=== PATIENT | female | born 1975 | race American Indian/Alaskan Native ===

== ENCOUNTER 2020-01-25 03:05 | Inpatient (IN) | payer OTHER, SELFPAY ==
[2020-01-25] VITALS (11 sets, daily range): BP systolic 118–192; BP diastolic 69–95; PULSE 62–99; RESP 16–22; TEMP 36.1–37.3; O2SAT 91–100; BMI 31.2
--- NOTE | 2020-01-25 | ECG_ITS ---
Test Reason : NAUSEA Blood Pressure : / mmHG Vent. Rate : 072 BPM Atrial Rate : 072 BPM P-R Int : 146 ms QRS Dur : 072 ms QT Int : 468 ms P-R-T Axes : 060 051 059 degrees QTc Int : 512 ms Normal sinus rhythm RSR' or QR pattern in V1 suggests right ventricular conduction delay T-wave inversion in Anterior leads Prolonged QT Abnormal ECG No previous ECGs available Referred By: Liliana Henry Electronically Signed By:CHIRAG ARITA MD
--- NOTE | 2020-01-25 | CT_ITS ---
EXAMINATION: CT ABDOMEN AND PELVIS WITH CONTRAST CLINICAL INFORMATION: Abdominal pain COMPARISON: None TECHNIQUE: Multidetector volumetric images were obtained from the superior aspect of the liver through the pubic symphysis following administration 85 mL of Omnipaque 350 intravenous contrast. Sagittal and coronal reformatted images were obtained on the technologist's workstation. Oral contrast: No This CT examination was performed using dose optimization techniques as appropriate, variously including the following: *Automated exposure control *Adjustment of mA and/or kV according to patient size (this includes techniques or standardized protocols for targeted exams where dose is matched to indication/reason for exam; i.e. extremities or head) *Use of iterative reconstruction technique DLP: 572 mGy-cm FINDINGS: LUNG BASES: The visualized lung bases are unremarkable. LIVER, GALLBLADDER, AND BILIARY TREE: The liver is normal in size, shape, and attenuation. No focal hepatic lesion or biliary ductal dilatation is present. The gallbladder is unremarkable with no evidence of radiopaque gallstones, gallbladder wall thickening, or obvious pericholecystic inflammatory changes. PANCREAS: Unremarkable. SPLEEN: Normal size spleen. Calcifications along the splenic peripheral margin. ADRENAL GLANDS: Unremarkable. KIDNEYS AND URETERS: The kidneys are normal in size, shape, and attenuation. No hydronephrosis, hydroureter, or calculi seen. Mild symmetric perinephric stranding. BLADDER: Unremarkable. GASTROINTESTINAL TRACT: The stomach is unremarkable. Normal caliber small bowel. There is no obstruction. There is diffuse fatty infiltration of the colonic wall. The colon is decompressed. No acute inflammatory changes. No free air. No free fluid. ABDOMINAL WALL: No significant hernia is appreciated. LYMPH NODES: Normal. VASCULAR: Normal caliber aorta with minimal atherosclerotic calcification. Retroaortic left renal vein. PELVIC VISCERA: Anteverted uterus. Prominent lobulation of the uterus with heterogeneous enhancement. The appearance is suspicious for prominent fibroids, measuring up to 4.5 cm at the uterine fundus. No adnexal mass. OSSEOUS STRUCTURES: No acute or suspicious osseous abnormality. Degenerative changes of L4-L5 and L5-S1. Vacuum disc phenomenon at L4-L5 with disc space narrowing. IMPRESSION: 1. Lobulated enlarged uterus, suggestive of multiple fibroids. This could be evaluated with pelvic ultrasound if clinically indicated. 2. Diffuse fatty infiltration of the colonic wall suggestive of chronic inflammatory process. No acute inflammatory changes of the colon.
--- NOTE | 2020-01-25 03:27 | ED_ITS ---
HPI - Nausea/Vomiting/Diarrhea General Chief complaint: Nausea/Vomiting/Diarrhea Stated complaint: NAUSEA AND VOMITING SINCE ALCOHOL USE Time Seen by Provider: 01/25/20 03:26 History of Present Illness HPI Narrative: This is a 44-year-old female who is a heavy drinker and states that she has been drinking heavily for the past 4 days and states that her last drink was 2 days ago and she has not eaten much over the past 2 days because she just has not felt well. She states that she then began developing nausea and nonbloody / nonbilious vomiting 4 hours ago without associated shortness of breath, chest pain /palpitations but is having abdominal pain and denies any urinary pain /burning /frequency or diarrhea. Related Data Home Medications Medication Instructions Recorded Confirmed buprenorphine-naloxone [Suboxone] 1 film BUCCAL DAILY 01/25/20 01/25/20 omeprazole 20 mg PO DAILY 01/25/20 01/25/20 Allergies Allergy/AdvReac Type Severity Reaction Status Date / Time sumatriptan [From IMITREX] Allergy Unknown INVOLUNTARY Verified 01/25/20 04:43 SPASMS wellbutrin AdvReac Unknown stomach Uncoded 07/18/19 00:00 upset Review of Systems Review of Systems: Pertinent positives and negatives as stated in the HPI. GEN: no fevers, chills, fatigue HEENT: no nasal congestion, sore throat, ear pain NEURO: no headache, dizziness, focal weakness PULM: no cough, shortness of breath CV: no chest pain, palpitations, LE edema ABD: +abdominal pain, nausea, vomiting, no diarrhea : no dysuria, urgency, frequency SKIN: no rash ROS otherwise negative x 10 PMFSH Past Medical History Source: nursing notes reviewed Medical History Fibroid No known health problems Surgical History Hx of appendectomy Social History Social History Alcohol intake: current Alcohol intake frequency: other Alcohol type: hard l iquor Smoking Status: Current every day smoker Use of substances other than those prescribed or required for medical reasons: No Advance Directives: No Advance Directives Information Provided: No Physical Exam Vital Signs and I&O and Narrative: Vital Signs and I&O: Vital Signs Temp 98.1 F 01/25/20 03:14 Pulse 88 01/25/20 07:59 Resp 16 01/25/20 07:59 BP 170/90 H 01/25/20 07:59 Pulse Ox 98 01/25/20 05:56 Intake & Output 01/24/20 01/25/20 01/25/20 18:59 06:59 18:59 Intake Total 2099 Balance 2099 Weight 85.275 kg Intake: Intake, IV Amoun t 2099 Potassium Chlo ride/H20 10 meq 100 / 100 In 100 ml @ 10 0 mls/hr IV Q1H [facility] Rx#:[id number] 0.9 % Sodium C hloride 1,000 ml 1999 / 1999 @ 999 mls/hr I VCONT .Q1H1M [facility] Rx#:[id number] Body Mass Index 31.2 VITAL SIGNS: Reviewed. GENERAL: Well developed, well nourished, in no acute distress. HEAD: Normocephalic/atraumatic, EYES: PERRLA, EOMI intact without pain, no nystagmus/pallor/icterus noted EARS: Ext canals without abnormality, TMs non-bulging and non-erythematous NOSE: Nares patent bilateral OROPHARYNX: no oral lesions noted, posterior pharynx clear and non-erythematous without noted tonsillar enlargement/erythema/exudates NECK: Supple, no adenopathy LUNGS: Normal breath sounds. No adventitious sounds or accessory muscle use. SpO2< 98%> CARDIOVASCULAR: Regular rate and rhythm without noted murmurs, no JVD or lower extremity edema. ABDOMEN: Soft, mildly tender on palpation, non-distended with bowel sounds. No rigidity. No guarding. No palpable masses or hernias noted MUSCULOSKELETAL: No tenderness, deformities, or effusions noted on gross inspection. EXTREMITIES: No cyanosis, clubbing or edema. SKIN: Inspection of the skin reveals no rashes, ulcerations, jaundice, pallor, or petechiae. NEUROLOGIC: Alert and oriented x 4. Strength and sensation to light touch were grossly intact x 4. Course Course Course Narrative: This is a 44-year-old female with history and clinical presentation suggestive of acute pancreatitis and concerns for possible withdrawal symptoms. Review of all investigations most consistent with pancreatitis although this is not demonstrated on CT scan. There is a noted worsening anemia which taken in to account with patient's reports of 2 episodes of black tarry stools may be the cause. Patient has been treated with Ativan, IV fluids, and pain medication, as well as antiemetics for symptom control but still unable to tolerate PO fluids. fecal occult blood was negative. Reevaluation(s) Reevaluation #1: This case was discussed with the inpatient hospitalist team who is agreeable for admission but is requesting normal saline at 150 cc/ HR as well as a dose Protonix. MDM - Nausea/Vomiting/Diarrhea Lab Data Result diagrams: 01/25/20 04:14 01/25/20 04:14 Labs: Lab Results 01/25/20 01/25/20 01/25/20 Range/Units 04:14 04:14 07:17 WBC 10.0 (4.8-10.8) X10*3/uL RBC 3.62 L (4.20-5.50) X10*6/uL Hgb 8.1 L (12.0-16.0) g/dl Hct 27.5 L (37-47) % MCV 76.0 L (80-98) fL MCH 22.4 L (27.0-33.0) pg MCHC 29.5 L (31.0-35.0) g/dl RDW 19.2 H (11.0-16.0) % Plt Count 167 (160-400) X10*3/uL MPV 9.3 L (9.4-12.3) fL Immature Gran % (Auto) 0.4 (0.0-0.4) % Neut % (Auto) 86.9 H (45-73) % Lymph % (Auto) 8.1 L (20-40) % [place] % (Auto) 4.4 (2-11) % Eos % (Auto) 0.0 (0-4) % Baso % (Auto) 0.2 (0-2) % Lymph # (Auto) 0.8 L (1.2-4.9) X10*3/uL [place] # (Auto) 0.4 (0.1-1.2) X10*3/uL Eos # (Auto) 0.0 (0.0-0.4) X10*3/uL Baso # (Auto) 0.0 (0.0-0.2) X10*3/uL Abs Immat Gran (auto) 0.04 H (0.00-0.03) X10*3/uL Absolute Neuts (auto) 8.7 H (2.0-8.3) X10*3/uL Absolute Nucleated RBC 0.020 H (0.0-0.012) X10*3/uL Nucleated RBC % (auto) 0.2 (0.0-0.2) /100WBC Sodium 138 (135-145) mmol/L Potassium 3.0 L (3.3-5.1) mmol/l Chloride 103 (96-108) mmol/L Carbon Dioxide 23 (22-29) mmol/L Anion Gap 15 (12-20) BUN 6 L (9-16) mg/dL Creatinine 0.69 (0.5-1.4) mg/dL Estim Creat Clear Calc 111.0 Estimated GFR > 60 Random Glucose 172 H (60-115) mg/dL Calcium 8.4 (8.4-10.2) mg/dL Magnesium 1.3 L* (1.6-2.6) mg/dL Total Bilirubin 0.5 (0.0-1.0) mg/dL AST 20 (5-31) U/L ALT 13 (0-31) U/L Alkaline Phosphatase 108 (39-117) U/L Total Protein 7.2 (6.5-8.0) g/dL Albumin 4.0 (3.5-5.0) g/dL Lipase 113 H (8-78) U/L Stool Occult Blood NEG (NEG) ECG Data Attestation: I personally reviewed and interpreted this ECG as follows: Interpretation: NSR, HR-72, QTc prolongation-512 Discharge Plan Discharge Clinical Impression: Hypokalemia, Hypomagnesemia Acute pancreatitis Qualifiers: Pancreatitis type: alcohol induced Acute pancreatitis complication: uninfected necrosis Qualified Code(s): K85.21 - Alcohol induced acute pancreatitis with un infected necrosis Anemia Qualifiers: Anemia type: unspecified type Qualified Code(s): D64.9 - Anemia, unspecified Patient Disposition: Admitted As Inpatient
[2020-01-25] MEDS: diphenhydrAMINE HCL 50 MG/ML VIAL 25 MG IVPUSH (03:53)
[2020-01-25] MEDS: 0.9 % Sodium Chloride 1,000 ML 999 ML IVCONT ×2 (03:54→05:29)
[2020-01-25] MEDS: Metoclopramide HCl 10 MG/2 ML VIAL IVPUSH (03:54)
[2020-01-25 04:19] LABS: Basophils Percent Auto 0.2 % (0-2); Hematocrit 27.5 % (37-47); Hemoglobin 8.1 g/dl (12.0-16.0); Imm Gran Abs Auto 0.04 X10*3/uL (0.00-0.03); Imm Gran Pct Auto 0.4 % (0.0-0.4); Lymphocytes Absolute Auto 0.8 X10*3/uL (1.2-4.9); Lymphocytes Percent Auto 8.1 % (20-40); MANUAL DIFF FLAG NO; Mean Corpuscular HGB Conc 29.5 g/dl (31.0-35.0); Mean Corpuscular Hemoglobin 22.4 pg (27.0-33.0); Mean Platelet Volume 9.3 fL (9.4-12.3); Monocytes Absolute Auto 0.4 X10*3/uL (0.1-1.2); Monocytes Percent Auto 4.4 % (2-11); NRBC Pct Auto 0.2 /100WBC (0.0-0.2); Neutrophils Absolute Auto 8.7 X10*3/uL (2.0-8.3); Neutrophils Percent Auto 86.9 % (45-73); Platelet Count 167 X10*3/uL (160-400); Red Blood Count 3.62 X10*6/uL (4.20-5.50); Red Cell Distribution Width 19.2 % (11.0-16.0)
[2020-01-25 04:46] LABS: Alanine Aminotransferase 13 U/L (0-31); Alkaline Phosphatase 108 U/L (39-117); Anion Gap 15 (12-20); Aspartate Amino Transferase 20 U/L (5-31); Bilirubin Total 0.5 mg/dL (0.0-1.0); Blood Urea Nitrogen 6 mg/dL (9-16); Calcium 8.4 mg/dL (8.4-10.2); Carbon Dioxide 23 mmol/L (22-29); Chloride 103 mmol/L (96-108); Estimated Glomerular Filt Rate > 60; Glucose Random 172 mg/dL (60-115); Sodium 138 mmol/L (135-145); Total Protein 7.2 g/dL (6.5-8.0)
[2020-01-25 05:02] LABS: Lipase 113 U/L (8-78)
[2020-01-25] MEDS: HYDROmorphone HCl 0.5 MG/0.5 ML SYRINGE IVPUSH (05:28)
[2020-01-25] MEDS: Prochlorperazine Edisylate 10 MG/2 ML VIAL 5 MG IV (05:28)
[2020-01-25 05:59] LABS: Magnesium 1.3 mg/dL (1.6-2.6)
[2020-01-25] MEDS: Magnesium Sulfate/H2O 2 GM/50 ML PIGGYBACK IV (06:26)
[2020-01-25] MEDS: LORazepam 2 MG/ML VIAL 1 MG IVPUSH (06:26)
[2020-01-25] MEDS: iohexoL 350 MG/ML 100 ML INFUS..BTL 85 ML IV (06:44)
[2020-01-25] MEDS: Potassium Chloride/H20 10 MEQ/100 ML PIGGYBACK 100 MEQ IV ×4 (07:00→11:11)
[2020-01-25 07:42] LABS: OBS Int Ctl Valid YES; OBS1 NEG (NEG)
[2020-01-25] MEDS: Pantoprazole Sodium 40 MG/10 ML VIAL 80 MG IVPUSH (08:36)
[2020-01-25] MEDS: 0.9 % Sodium Chloride 500 ML 150 ML IV (08:36)
[2020-01-25 09:11] LABS: Glucose Urine UA NEG (NEG); Leukocyte Esterase Urine NEG (NEG); Nitrite Urine NEG (NEG); Urine Blood NEG (NEG); Urine Ketones 15 MG/DL (NEG); Urine Protein NEG (NEG-TRACE)
[2020-01-25 09:13] LABS: Appearance Urine CLEAR; Color Urine YELLOW; UACC Culture Trigger NO
[2020-01-25 09:14] LABS: UPreg QC Valid YES; Urine Pregnancy NEGATIVE (NEGATIVE)
--- NOTE | 2020-01-25 10:25 | PM.IMHP ---
History of Present Illness Date of Service: 01/25/20 <WOODROW Whitney - Last Filed: 01/25/20 10:56> Chief Complaint: n/v <WOODROW Whitney - Last Filed: 01/25/20 10:56> This is a 44-year-old female with a history of alcohol abuse who presents to the emergency department with nausea and nonbloody emesis. She reports onset of symptoms at 10:30 last night. She has had associated upper abdominal pain. She also reports 2 episodes of loose stool. she usually drinks alcohol daily however for the past several days she was drinking more than usual. She reports drinking 4-5 mixed drinks daily. workup in the emergency department revealed hypokalemia with a potassium of 3.0, low magnesium at 1.3. EKG revealed prolonged QTC of 512 milliseconds. H/H somewhat decreased from her baseline at 8.1/27.5. Stool guaiac was negative. lipase was mildly elevated at 113 however cat scan of the abdomen showed normal appearance of the pancreas. She received antiemetics, magnesium and potassium replacement. She continued to have nausea and vomiting And the decision was made to admit her for further management. <WOODROW Whitney - Last Filed: 01/25/20 10:56> Review of Systems Review of Systems: Yes all other systems are reviewed and are negative <WOODROW Whitney - Last Filed: 01/25/20 10:56> Constitutional: Constitutional: Denies chills and Denies fever(s) <WOODROW Whitney - Last Filed: 01/25/20 10:56> Cardiovascular: Cardiovascular: Denies chest pain <WOODROW Whitney - Last Filed: 01/25/20 10:56> Respiratory: Respiratory: Denies cough <WOODROW Whitney Last Filed: 01/25/20 10:56> Gastrointestinal: Gastrointestinal: Reports abdominal pain, Reports loose stools, Reports nausea and Reports vomiting <WOODROW Whitney Last Filed: 01/25/20 10:56> [facility] Medical History: Medical History (Updated 02/12/20 @ 10:59 by Betty Page MD) Alcohol abuse Fibroid Opiate dependence Uterine benign neoplasm <WOODROW Whitney - Last Filed: 01/25/20 10:56> Family History: Family History (Updated 01/25/20 @ 10:42 by WOODROW Whitney) Mother Multiple sclerosis <WOODROW Whitney - Last Filed: 01/25/20 10:56> Surgical History: Surgical History (Updated 01/25/20 @ 10:41 by WOODROW Whitney) H/O myomectomy Hx of appendectomy <WOODROW Whitney - Last Filed: 01/25/20 10:56> Social History: Social History (Updated 01/25/20 @ 10:44 by WOODROW Whitney) Household Members: Spouse Housing: Apartment Alcohol intake: current Alcohol intake frequency: other Alcohol type: hard liquor Smoking Status: Current every day smoker Tobacco Type: Cigarette Packs Per Day: 2 Cigarettes Per Day: 40.0 Second Hand Smoke Exposure: Yes Substance Use Type: Opiates service: No Current occupational status: employed <WOODROW Whitney - Last Filed: 01/25/20 10:56> Meds Allergies/Adverse reactions: Allergies Allergy/AdvReac Type Severity Reaction Status Date / Time sumatriptan [From IMITREX] Allergy Unknown INVOLUNTARY Verified 01/25/20 04:43 SPASMS wellbutrin AdvReac Unknown stomach Uncoded 07/18/19 00:00 upset <WOODROW Whitney - Last Filed: 01/25/20 10:56> Home medications: Home Medications Medication Instructions Recorded Confirmed Type buprenorphine-naloxone [Suboxone] 1 film BUCCAL DAILY 01/25/20 01/25/20 History omeprazole 20 mg PO DAILY 01/25/20 01/25/20 History <WOODROW Whitney - Last Filed: 01/25/20 10:56> Physical Exam Vital Signs and Narrative: Vital Signs: Last Vital Signs Temp 98.1 F 01/25/20 03:14 Pulse 86 01/25/20 09:53 Resp 22 H 01/25/20 09:53 BP 179/95 H 01/25/20 09:53 Pulse Ox 97 01/25/20 09:53 Body Mass Index 31.2 <WOODROW Whitney - Last Filed: 01/25/20 10:56> Const: Nutritional Appearance: well nourished <WOODROW Whitney - Last Filed: 01/25/20 10:56> Orientation/consciousness: patient oriented x3 <WOODROW Whitney - Last Filed: 01/25/20 10:56> HENMT: Head: Yes normocephalic and Yes atraumatic <WOODROW Whitney - Last Filed: 01/25/20 10:56> Eyes: Sclerae: sclerae normal <WOODROW Whitney - Last Filed: 01/25/20 10:56> Chest: Chest palpation & inspection: normal inspection of the chest <WOODROW Whitney - Last Filed: 01/25/20 10:56> Resp: Effort & Inspection: normal respiratory effort and no respiratory distress <WOODROW Whitney - Last Filed: 01/25/20 10:56> Auscultation: clear to auscultation bilaterally <WOODROW Whitney - Last Filed: 01/25/20 10:56> Cardio: Rate: regular rate <WOODROW Whitney - Last Filed: 01/25/20 10:56> Rhythm: regular rhythm <WOODROW Whitney - Last Filed: 01/25/20 10:56> GI: Palpation (GI): Soft to palpation and Tenderness to palpation present (GI) in the epigastrum <WOODROW Whitney - Last Filed: 01/25/20 10:56> Skin: General skin exam: no rashes or lesions noted <WOODROW Whitney - Last Filed: 01/25/20 10:56> Neuro: General: patient oriented x3 <WOODROW Whitney - Last Filed: 01/25/20 10:56> Cranial nerves: Yes CN's II-XII intact bilaterally and Yes Bilaterally intact EOM present <WOODROW Whitney - Last Filed: 01/25/20 10:56> Extrem: General: Yes normal to inspection <WOODROW Whitney - Last Filed: 01/25/20 10:56> Results Labs Labs: Laboratory Tests 01/25/20 01/25/20 01/25/20 04:14 04:14 07:17 WBC 10.0 RBC 3.62 L Hgb 8.1 L Hct 27.5 L MCV 76.0 L MCH 22.4 L MCHC 29.5 L RDW 19.2 H Plt Count 167 MPV 9.3 L Immature Gran % (Auto) 0.4 Neut % (Auto) 86.9 H Lymph % (Auto) 8.1 L [place] % (Auto) 4.4 Eos % (Auto) 0.0 Baso % (Auto) 0.2 Lymph # (Auto) 0.8 L [place] # (Auto) 0.4 Eos # (Auto) 0.0 Baso # (Auto) 0.0 Abs Immat Gran (auto) 0.04 H Absolute Neuts (auto) 8.7 H Absolute Nucleated RBC 0.020 H Nucleated RBC % (auto) 0.2 Sodium 138 Potassium 3.0 L Chloride 103 Carbon Dioxide 23 Anion Gap 15 BUN 6 L Creatinine 0.69 Estim Creat Clear Calc 111.0 Estimated GFR > 60 Random Glucose 172 H Calcium 8.4 Magnesium 1.3 L* Total Bilirubin 0.5 AST 20 ALT 13 Alkaline Phosphatase 108 Total Protein 7.2 Albumin 4.0 Lipase 113 H Urine Color Urine Appearance Urine pH Ur Specific [place] Urine Protein Urine Glucose (UA) Urine Ketones Urine Blood Urine Nitrite Ur Leukocyte Esterase Urine Test Stool Occult Blood NEG 01/25/20 08:55 WBC RBC Hgb Hct MCV MCH MCHC RDW Plt Count MPV Immature Gran % (Auto) Neut % (Auto) Lymph % (Auto) [place] % (Auto) Eos % (Auto) Baso % (Auto) Lymph # (Auto) [place] # (Auto) Eos # (Auto) Baso # (Auto) Abs Immat Gran (auto) Absolute Neuts (auto) Absolute Nucleated RBC Nucleated RBC % (auto) Sodium Potassium Chloride Carbon Dioxide Anion Gap BUN Creatinine Estim Creat Clear Calc Estimated GFR Random Glucose Calcium Magnesium Total Bilirubin AST ALT Alkaline Phosphatase Total Protein Albumin Lipase Urine Color YELLOW Urine Appearance CLEAR Urine pH 6.0 Ur Specific [place] 1.010 Urine Protein NEG Urine Glucose (UA) NEG Urine Ketones 15 Urine Blood NEG Urine Nitrite NEG Ur Leukocyte Esterase NEG Urine Test NEGATIVE Stool Occult Blood <WOODROW Whitney - Last Filed: 01/25/20 10:56> Assessment and Plan (1) Intractable nausea and vomiting: Status: Acute <WOODROW Whitney - Last Filed: 01/25/20 10:56> this is a 44-year-old female with a history of alcohol abuse who presents to the emergency department with nausea and vomiting found to have multiple electrolyte abnormalities admitted for gastritis and alcohol withdrawal. alcohol withdrawal - start phenobarbital - tele monitoring, seizure precautions - supplementation with thiamine, folate - care team evaluation when medically stable N/V/ abdominal pain seems to be improving. no vomiting for several hours per patient likely secondary to alcoholic gastritis. less likely pancreatitis given normal appearing pancreas on CT - IV Pepcid - IVF - cautious use of antiemetics given prolonged QT electrolyte abnormalities K 3.0, magnesium 1.3 - repeat labs now - tele monitoring - replace as needed prolonged QTc related to electrolyte abnormalities - tele monitoring - repeat EKG in a.m. microcytic anemia chronic. somewhat below baseline guaiac negative - check iron studies - trend CBC tobacco dependence smoking cessation advised -NRT DVT prophylaxis- mechanical devices code status- full code this case was discussed with Dr. Alejo <WOODROW Whitney - Last Filed: 01/25/20 10:56>
[2020-01-25] MEDS: PHENobarbitaL sodium 130 MG/ML VIAL 182 MG IM (10:28)
[2020-01-25] MEDS: 0.9 % Sodium Chloride 1,000 ML 100 ML IVCONT ×2 (12:33→21:24)
[2020-01-25] MEDS: Thiamine HCL 100 MG TABLET PO (12:34)
[2020-01-25] MEDS: Famotidine/PF 20 MG/2 ML VIAL IVPUSH (12:34)
[2020-01-25] MEDS: Nicotine 21 MG PATCH.TD24 TRANSDERMA (12:36)
[2020-01-25 12:58] LABS: Anion Gap 14 (12-20); Blood Urea Nitrogen 3 mg/dL (9-16); Calcium 7.9 mg/dL (8.4-10.2); Carbon Dioxide 21 mmol/L (22-29); Chloride 104 mmol/L (96-108); Creatinine Clr Calc Pharmacy 125.5; Estimated Glomerular Filt Rate > 60; Glucose Random 136 mg/dL (60-115); Iron 20 mcg/dL (30-160); Magnesium 1.7 mg/dL (1.6-2.6); Percent Iron Saturation 4 % (15-50); Potassium 3.9 mmol/l (3.3-5.1); Sodium 135 mmol/L (135-145); Total Iron Binding Capacity 468 mcg/dL (228-428); Unsaturated Iron Binding 448 ug/dL
[2020-01-25] MEDS: PHENobarbitaL sodium 130 MG/ML VIAL 137 MG IM ×2 (13:01→17:02)
[2020-01-25 13:13] LABS: Ferritin 23 ng/mL (10-250)
--- NOTE | 2020-01-25 15:43 | PM.EVENT ---
Event Note Event Note: patient was admitted because of nausea and nonbloody vomiting. She also has upper abdominal pain. As well as reported 2 BMs loose stools. She reports she is drinking alcohol nonstop from last couple of days and not eating well along with it. In the ED found to have electrolytic abnormalities including hypomagnesemia and hypokalemia also found to have Qt prolongation. has probably mild hypochromic anemia also. physical exam: Cvs: rrr, [id number] , no murmur res: clear to auscultation ,no rhonchii or wheezing abd: no rebound or guarding ,mild epigastric discomfort, bs present. ext pulses present , no cyanosis neuro: axo3 , nonfocal. Lab imaging, EKG reviewed. Physical exam and assessment and plan coordinated in APCs note, Agree with the plan in addition: Patient being admitted for alcohol withdrawal, alcoholic gastritis, electrolytic abnormalities as above. Monitor patient on tele replete magnesium an d potassium phenobarb protocol, thiamine folic acid. , monitor CIWA scale IV fluid ppi repeat h/h CTs abdomen shows has fibroids- recommended outpatient follow-up with ultrasound. Also has some chronic colonic inflammation otherwise unremarkable. will continue to monitor.
[2020-01-25 16:31] LABS: Hematocrit 27.8 % (37-47)
[2020-01-25] MEDS: Pantoprazole Sodium 40 MG/10 ML VIAL IVPUSH (17:02)
[2020-01-25] MEDS: Folic Acid 1 MG TABLET PO (17:02)
[2020-01-25] MEDS: Morphine Sulfate 2 MG/ML CARTRIDGE 1 MG IVPUSH (21:23)
[2020-01-26] MEDS: diphenhydrAMINE HCL 50 MG/ML VIAL 25 MG IVPUSH ×2 (01:20→20:41)
[2020-01-26 03:27] VITALS: BP 179/84; PULSE 76; RESP 19; TEMP 36.8; O2SAT 97
[2020-01-26] MEDS: Pantoprazole Sodium 40 MG/10 ML VIAL IVPUSH (05:40)
[2020-01-26] MEDS: Morphine Sulfate 2 MG/ML CARTRIDGE 1 MG IVPUSH (05:40)
[2020-01-26 06:53] VITALS: BP 189/79; PULSE 74; RESP 20; TEMP 36.6; O2SAT 98
[2020-01-26 07:15] LABS: MANUAL DIFF FLAG NO
[2020-01-26 07:28] LABS: Basophils Percent Auto 0.1 % (0-2); Eosinophils Percent Auto 0.1 % (0-4); Hematocrit 27.7 % (37-47); Hemoglobin 8.1 g/dl (12.0-16.0); Imm Gran Abs Auto 0.06 X10*3/uL (0.00-0.03); Imm Gran Pct Auto 0.5 % (0.0-0.4); Lymphocytes Absolute Auto 1.2 X10*3/uL (1.2-4.9); Lymphocytes Percent Auto 10.5 % (20-40); Mean Corpuscular HGB Conc 29.2 g/dl (31.0-35.0); Mean Corpuscular Hemoglobin 22.5 pg (27.0-33.0); Mean Corpuscular Volume 76.9 fL (80-98); Mean Platelet Volume 10.6 fL (9.4-12.3); Monocytes Absolute Auto 0.6 X10*3/uL (0.1-1.2); Monocytes Percent Auto 5.4 % (2-11); NRBC Pct Auto 0.3 /100WBC (0.0-0.2); Neutrophils Absolute Auto 9.2 X10*3/uL (2.0-8.3); Neutrophils Percent Auto 83.4 % (45-73); Platelet Count 191 X10*3/uL (160-400); Red Cell Distribution Width 20.6 % (11.0-16.0); White Blood Count 11.1 X10*3/uL (4.8-10.8)
[2020-01-26] MEDS: Folic Acid 1 MG TABLET PO (07:51)
[2020-01-26] MEDS: Ferrous Sulfate 324 MG TABLET.DR PO ×2 (07:51→17:25)
[2020-01-26] MEDS: Buprenorphine/Naloxone 8/2 mg FILM 1 FILM BUCCAL ×2 (07:52→20:40)
[2020-01-26] MEDS: PHENobarbitaL 15 MG TABLET 45 MG PO ×2 (07:52→20:40)
[2020-01-26 07:55] LABS: Magnesium 1.6 mg/dL (1.6-2.6)
[2020-01-26] MEDS: 0.9 % Sodium Chloride 1,000 ML 100 ML IVCONT (07:59)
[2020-01-26 08:04] LABS: Anion Gap 14 (12-20); Calcium 7.6 mg/dL (8.4-10.2); Carbon Dioxide 20 mmol/L (22-29); Chloride 105 mmol/L (96-108); Creatinine Clr Calc Pharmacy 123.5; Estimated Glomerular Filt Rate > 60; Glucose Random 106 mg/dL (60-115); Potassium 3.2 mmol/l (3.3-5.1); Sodium 136 mmol/L (135-145)
[2020-01-26 08:22] LABS: Blood Urea Nitrogen 3 mg/dL (9-16)
--- NOTE | 2020-01-26 09:48 | MHC.CM.PN ---
NEUROLOGIST completed with pt who reports she lives at home with her partner and is independent with all care. Pt reports she does not use DME and has no in home services. Pt confirms her PCP is Betty Page and states she does have a HCP naming her mother, Dasha ([phone]) as her agent. Pt currently has only [employer] insurance and agrees to a referral to financial services to determine if she is eligible for further coverage. current [place] plan is home with no services pt will self arrange transportation
[2020-01-26 11:34] VITALS: BP 158/75; RESP 20; TEMP 36
--- NOTE | 2020-01-26 11:48 | P.PNIM_ITS ---
Subjective Subjective Date of Service: 01/26/20 Interval History: alcohol withdrawal, probable alcoholic gastritis, hypomagnesemia Review of Systems says abdominal pain seems slowly improving, denies any chest pain or shortness of breath ,no fever or chills Physical Exam Vital Signs: Vital Signs: Vital Signs Temp Pulse Resp BP Pulse Ox 01/26/20 11:34 96.8 F 20 158/75 H 01/26/20 06:53 98 F 74 20 189/79 H 98 01/26/20 03:27 98.2 F 76 19 179/84 H 97 01/25/20 23:34 97.0 F 62 19 118/69 91 L 01/25/20 23:31 99.1 F 94 19 139/85 96 01/25/20 19:18 98.6 F 79 20 168/81 H 96 01/25/20 16:00 96 01/25/20 15:33 98.3 F 88 18 165/81 H 97 01/25/20 12:00 97.5 F 96 22 H 154/72 H 96 Body Mass Index 31.2 Physical exam: cvs: [id number], [id number] , no murmur res: clear to auscultation ,no rhonchii or wheezing abd: no rebound or guarding mild epigastric discomfort, bs present. ext pulses present , no cyanosis neuro: axo3 , nonfocal. Objective Data Current Medications Generic Name Dose Route Start Last Admin Trade Name Freq PRN Reason Stop Dose Admin Acetaminophen 650 mg 01/25/20 11:44 Acetaminophen 325 Mg Tablet PO Q6H PRN Pain, Mild (Pain Scale 1-3) Buprenorphine/Naloxone 1 film 01/26/20 09:00 01/26/20 07:52 Buprenorphine/Naloxone 8/2 Mg Film BUCCAL 1 film DAILY EDINSON Administration Docusate Sodium 100 mg 01/25/20 11:44 Docusate Sodium 100 Mg Capsule PO DAILY PRN Constipation Ferrous Sulfate 324 mg 01/26/20 08:00 01/26/20 07:51 Ferrous Sulfate 324 Mg Tablet. PO 324 mg BIDWM EDINSON Administration Folic Acid 1 mg 01/25/20 16:00 01/26/20 07:51 Folic Acid 1 Mg Tablet PO 1 mg DAILY EDINSON Administration Sodium Chloride 500 mls @ 150 mls/hr 01/25/20 08:15 01/25/20 12:39 Ns IV Not Given .Q3H20M EDINSON Sodium Chloride 1,000 mls @ 100 mls/hr 01/25/20 11:44 01/26/20 07:59 Ns IVCONT 100 mls/hr .Q10H EDINSON Administration Medication 1 each 01/26/20 09:00 No Benzodiazepines MISCELLANE DAILY [facility] Pantoprazole Sodium 40 mg 01/25/20 16:06 01/26/20 05:40 Pantoprazole Sodium 40 Mg/10 Ml Vial IVPUSH 40 mg DAILY@0630 EDINSON Administration Phenobarbital 45 mg 01/26/20 09:00 01/26/20 07:52 Phenobarbital 15 Mg Tablet PO 01/27/20 21:01 45 mg BID EDINSON Administration Phenobarbital 15 mg 01/28/20 09:00 Phenobarbital 15 Mg Tablet PO 01/29/20 21:01 BID [facility] Phenobarbital 15 mg 01/30/20 09:00 Phenobarbital 15 Mg Tablet PO 01/31/20 09:01 DAILY [facility] Sodium Chloride 3 ml 01/25/20 16:00 01/26/20 07:51 0.9 % Sodium Chloride Flush 3 Ml Syringe IVFLUSH Not Given QSHIFT [facility] Thiamine HCl 100 mg 01/25/20 16:00 Thiamine Hcl 100 Mg Tablet PO ONCE [facility] Labs CBC & Chem 7: 01/26/20 06:12 01/26/20 06:12 Labs: Laboratory Results - last 24 hr 01/25/20 01/25/20 01/26/20 11:55 11:55 06:12 MCV 76.9 L MCH 22.5 L MCHC 29.2 L RDW 20.6 H Plt Count 191 MPV 10.6 Immature Gran % (Auto) 0.5 H Neut % (Auto) 83.4 H Lymph % (Auto) 10.5 L [place] % (Auto) 5.4 Eos % (Auto) 0.1 Baso % (Auto) 0.1 Lymph # (Auto) 1.2 [place] # (Auto) 0.6 Eos # (Auto) 0.0 Baso # (Auto) 0.0 Abs Immat Gran (auto) 0.06 H Absolute Neuts (auto) 9.2 H Absolute Nucleated RBC 0.030 H Nucleated RBC % (auto) 0.3 H Anion Gap 14 Estim Creat Clear Calc 125.5 Estimated GFR > 60 Random Glucose 136 H Calcium 7.9 L Magnesium 1.7 Iron 20 L TIBC 468 H % Saturation 4 L Unsat Iron Binding 448 Ferritin 23 Folate Cancelled 01/26/20 01/26/20 06:12 06:12 MCV MCH MCHC RDW Plt Count MPV Immature Gran % (Auto) Neut % (Auto) Lymph % (Auto) [place] % (Auto) Eos % (Auto) Baso % (Auto) Lymph # (Auto) [place] # (Auto) Eos # (Auto) Baso # (Auto) Abs Immat Gran (auto) Absolute Neuts (auto) Absolute Nucleated RBC Nucleated RBC % (auto) Anion Gap 14 Estim Creat Clear Calc 123.5 Estimated GFR > 60 Random Glucose 106 Calcium 7.6 L Magnesium 1.6 Iron TIBC % Saturation Unsat Iron Binding Ferritin Folate Progress Note: A&P (1) Hypomagnesemia: Status: Acute (2) Anemia: Status: Acute (3) Intractable nausea and vomiting: Status: Acute Assessment and Plan: 44-year-old female with a history of alcohol abuse who presents to the emergency department with nausea and vomiting found to have multiple electrolyte abnormalities admitted for gastritis and alcohol withdrawal. 1.alcohol withdrawal: tele monitoring, seizure precautions continue phenobarbital supplementation with thiamine, folate care team evaluation when medically stable 2.N/V/ abdominal pain seems to be improving. no vomiting for several hours per patient likely secondary to alcoholic gastritis. less likely pancreatitis given normal appearing pancreas on CT IV Pepcid, IVF last QT on moniter - 3. electrolyte abnormalities: potassium and magnesium improving 4.microcytic anemia:chronic. somewhat below baseline guaiac negative check iron studies-seems like some iron def,probable related to fibroids . 5. tobacco dependence smoking cessation advised,NRT 6. DVT prophylaxis- mechanical devices
[2020-01-26] MEDS: Lidocaine 4 % Patch ADH..PATCH 1 PATCH TRANSDERMA (12:45)
--- NOTE | 2020-01-26 14:30 | MHC.CARE ---
CARE Team responded to consult request to speak with this patient regarding her alcohol use and to offer resources. Met in her room, she was alert and oriented, somewhat put off that a someone was sent to talk with her as she does not feel her drinking is an issue, minimized. Did engage but remained somewhat guraded, she was able to talk about recent stressors (nonspecific) that are impacting her mood, outlook on life and judgment--recent job loss, absence of a family, current [place] issues. Discussed therapy options, patient has been in treatment before and speculated that if she had insurance she would reengage, knows where and how to get that type of help. Patient may have insurance through the [employer], previously was enrolled in [employer]. CARE team will check with registration. Updated provider and CM.
[2020-01-26] MEDS: Nicotine 21 MG PATCH.TD24 TRANSDERMA (15:04)
[2020-01-26] MEDS: 0.9 % Sodium Chloride Flush 3 ML SYRINGE IVFLUSH ×2 (15:05→20:41)
[2020-01-26 15:15] VITALS: BP 159/82; PULSE 98; RESP 18; TEMP 36.8; O2SAT 99
[2020-01-26] MEDS: Magnesium Oxide 400 MG TABLET PO (17:25)
[2020-01-26 19:04] VITALS: BP 121/67; PULSE 90; RESP 18; TEMP 37.2; O2SAT 95
[2020-01-26 23:25] VITALS: BP 139/74; PULSE 82; RESP 18; TEMP 36.7; O2SAT 96
--- NOTE | 2020-01-27 | ECG_ITS ---
Test Reason : REASSESS Blood Pressure : / mmHG Vent. Rate : 087 BPM Atrial Rate : 087 BPM P-R Int : 130 ms QRS Dur : 084 ms QT Int : 390 ms P-R-T Axes : 054 027 068 degrees QTc Int : 469 ms Sinus rhythm Normal ECG When compared with ECG of 25-JAN-2020 03:48, T wave inversion no longer evident in Anterior leads Referred By: Corey Alejo Electronically Signed By:CHIRAG ARITA MD
[2020-01-27] MEDS: Zolpidem Tartrate 5 MG TABLET PO (01:17)
[2020-01-27 03:49] VITALS: BP 134/65; PULSE 93; RESP 18; TEMP 36.9; O2SAT 95
[2020-01-27] MEDS: Pantoprazole Sodium 40 MG/10 ML VIAL IVPUSH (06:08)
[2020-01-27 06:57] VITALS: BP 142/73; PULSE 81; RESP 18; TEMP 36.6; O2SAT 96
[2020-01-27] MEDS: Magnesium Oxide 400 MG TABLET PO (08:15)
[2020-01-27] MEDS: Folic Acid 1 MG TABLET PO (08:16)
[2020-01-27] MEDS: Buprenorphine/Naloxone 8/2 mg FILM 1 FILM BUCCAL (08:16)
[2020-01-27] MEDS: Ferrous Sulfate 324 MG TABLET.DR PO (08:16)
[2020-01-27] MEDS: Nicotine 21 MG PATCH.TD24 TRANSDERMA (08:22)
[2020-01-27] MEDS: PHENobarbitaL 15 MG TABLET 45 MG PO (08:22)
[2020-01-27 08:40] LABS: Anion Gap 15 (12-20); Carbon Dioxide 22 mmol/L (22-29); Chloride 105 mmol/L (96-108); Creatinine Clr Calc Pharmacy 117.8; Estimated Glomerular Filt Rate > 60; Glucose Random 118 mg/dL (60-115); Potassium 3.4 mmol/l (3.3-5.1); Sodium 139 mmol/L (135-145)
[2020-01-27] MEDS: 0.9 % Sodium Chloride Flush 3 ML SYRINGE IVFLUSH (08:40)
[2020-01-27 08:57] LABS: Blood Urea Nitrogen 5 mg/dL (9-16)
[2020-01-27 08:58] LABS: Calcium 8.1 mg/dL (8.4-10.2)
[2020-01-27] MEDS: Acetaminophen 325 MG TABLET 650 MG PO (10:47)
--- NOTE | 2020-01-27 11:45 | P.DS_ITS ---
DS: Providers Provider Date of admission: 01/25/20 10:20 Primary care physician: Betty Page MD Consults: 01/25/20 11:44 Consult to Care Team Routine Comment: Reason for consultation: etoh abuse DS: Diagnosis Discharge Diagnosis (1) Hypomagnesemia: Status: Acute (2) Anemia: Status: Acute (3) Intractable nausea and vomiting: Status: Acute DS: Summary Hospital Course Hospital Course: 44-year-old female with a history of alcohol abuse who presents to the emergency department with nausea and nonbloody emesis. She reports onset of symptoms at 10:30 last night. She has had associated upper abdominal pain. She also reports 2 episodes of loose stool. she usually drinks alcohol daily however for the past several days she was drinking more than usual. She reports drinking 4- 5 mixed drinks daily. workup in the emergency department revealed hypokalemia with a potassium of 3.0, low magnesium at 1.3. EKG revealed prolonged QTC of 512 milliseconds. H/H somewhat decreased from her baseline at 8.1/27.5. Stool guaiac was negative. lipase was mildly elevated at 113 however cat scan of the abdomen showed normal appearance of the pancreas. She received antiemetics, magnesium and potassium replacement. She continued to have nausea and vomiting And the decision was made to admit her for further management. Hospital course problem villalobos section: 44-year-old female with a history of alcohol abuse who presents to the emergency department with nausea and vomiting found to have multiple electrolyte abnormalities admitted for gastritis and alcohol withdrawal. 1.alcohol withdrawal: Patient was started on phenobarb, tele monitoring, seizure per question, thiamine and folic acid. also monitored on CIWA: Subsequently patient seems to be improved: going home with the thiamine ,folic acid. 2.N/V/ abdominal pain : Probably related to alcohol related gastritis seems improved, encouraged to stop alcohol, swat saw the patient - information given. 3. electrolyte abnormalities: potassium and magnesium Repleted and improved. Limited potassium and magnesium replacement given, monitor renal function and electrolytes with PCP and further management according to PCP . Qtc Was prolonged initially seems improved for 469ms range. 4.microcytic anemia:chronic. somewhat below baseline guaiac negative check iron studies-seems like some iron def,probable related to fibroids And irregular menstruations: patient is to follow-up with PCP for pelvic ultrasound as well as monitor H&H out patiently, consider outpatient dye colorist dyer evaluation. Above management discussed with the patient in detail length she understand and in agreement with the above plan, time spent 50 minutes and 50% time spent on counseling. Significant findings: As above. Procedures performed: None. Treatment and response: As above. Complications: None. Time Spent with Patient Time attestation: Total time spent providing and/or coordinating discharge services:50 min Physical Exam Vital Signs: Vital Signs: Vital Signs Temp Pulse Resp BP Pulse Ox 01/27/20 06:57 97.9 F 81 18 142/73 H 96 01/27/20 03:49 98.4 F 93 18 134/65 95 01/26/20 23:25 98.1 F 82 18 139/74 96 01/26/20 19:04 98.9 F 90 18 121/67 95 01/26/20 15:15 98.2 F 98 18 159/82 H 99 Body Mass Index 31.2 physical exam: Cvs: rrr, [id number] , no murmur res: clear to auscultation ,no rhonchii or wheezing abd: no rebound or guarding ,nt, bs present. ext pulses present , no cyanosis neuro: axo3 , nonfocal. DS: Data Data Completed and Pending Labs on day of discharge: Labs from last 24 hours 01/27/20 06:34 Sodium 139 Potassium 3.4 Chloride 105 Carbon Dioxide 22 Anion Gap 15 BUN 5 L D Creatinine 0.65 Estim Creat Clear Calc 117.8 Estimated GFR > 60 Random Glucose 118 H Calcium 8.1 L Additional Comments Additional comments: CT abdomen pelvis:IMPRESSION: 1. Lobulated enlarged uterus, suggestive of multiple fibroids. This could be evaluated with pelvic ultrasound if clinically indicated. 2. Diffuse fatty infiltration of the colonic wall suggestive of chronic inflammatory process. No acute inflammatory changes of the colon. Discharge Plan Discharge Patient Disposition: Home, Self-Care Referrals: Betty Page MD [Primary Care Provider] - Discharge Medications: New thiamine HCl (vitamin B1) 100 mg Tablet 100 mg PO ONCE Qty: 30 RF: 0 nicotine 21 mg/24 hr Patch 24 Hour 21 mg transdermal DAILY Qty: 7 RF: 0 folic acid 1 mg Tablet 1 mg PO DAILY Qty: 30 RF: 0 ferrous sulfate 324 mg (65 mg iron) Tablet,Delayed Release (Dr/Ec) 324 mg PO BIDWM Qty: 60 RF: 0 magnesium 200 mg tablet 200 mg PO DAILY Qty: 7 RF: 0 potassium citrate 10 mEq (1,080 mg) tablet extended release 10 meq PO DAILY Qty: 3 RF: 0 Continued omeprazole 20 mg Capsule,Delayed Release(Dr/Ec) 20 mg PO DAILY RF: 0 buprenorphine-naloxone [Suboxone] 8-2 mg Film 1 film BUCCAL DAILY RF: 0 Discharge Orders: Discharge Order (Routine); Ordered 01/27/20 Ordered By: Corey Alejo Diet: advance to your usual diet Activity on Discharge: As tolerated Visit Report Forms: Patient Portal Discharge page Care Plan Goals: patient came with alcohol withdrawal -started on phenobarb protocol, subse quently seems improved and going home, In addition patient has history of fibroid and has he intermittent irregular menstruations as per the patient: discussed with the patient patient started on iron for anemia and requested to follow-up with the PCP with the pelvic ultrasound as well as monitor hemoglobin hematocrit with PCP out patiently, consider outpatient dye colorist dyer evaluation as per PCP. Health Concerns: as above. Plan of Treatment: as above.
--- NOTE | 2020-01-27 12:29 | MHC.CM.PN ---
DISCHARGE PLANNED FOR TODAY, HOME WITH NO SERVICES. PT WILL SELF ARRANGE TRANSPORT
[2020-01-28 22:21] LABS: Folate 3.7 ng/mL (> or = 4.0); Vitamin B12 539 pg/mL (200-900)
== END 2020-01-27 13:25 | disposition home or self-care (01) | DRG 392 ==
LOC: HO.ED 09:07 → HO.IMC 10:28
PROVIDERS: Physician Assistant Medical; Admitting Provider Internal Medicine; Emergency Provider Student in an Organized Health Care Education/Training Program; PCP Internal Medicine; Visit Provider Internal Medicine
DX: K29.20 Alcoholic gastritis without bleeding (principal); F11.20 Opioid dependence, uncomplicated; F10.239 Alcohol dependence with withdrawal, unspecified; E83.42 Hypomagnesemia; D64.9 Anemia, unspecified; D25.9 Leiomyoma of uterus, unspecified; D50.9 Iron deficiency anemia, unspecified; N92.6 Irregular menstruation, unspecified; F17.210 Nicotine dependence, cigarettes, uncomplicated; Z71.6 Tobacco abuse counseling; Z79.899 Other long term (current) drug therapy
CPT/HCPCS: 36415; 74177; 80048; 80053; 81003; 81025; 82272; 82607; 82728; 82746; 83540; 83690; 83735; 85014; 85018; 85025; 93005; 96361; 96365; 96366; 96375; 99285; J0574; J1170; J1200; J2060; J2270; J2560; J2765; J3475

== ENCOUNTER 2020-04-04 14:07 | Outpatient (REF) | payer OTHER, SELFPAY ==
[2020-04-06 11:58] LABS: BV Int Neg Control Negative (Negative); BV Int Pos Control Positive (Positive)
[2020-04-09 03:48] LABS: HPV mRNA E6/E7 rflx Not Detected (Not Detected)
== END 2020-04-04 14:08 | disposition home or self-care (01) ==
LOC: HO.LAB 14:07
PROVIDERS: PCP Internal Medicine; Visit Provider Obstetrics & Gynecology
DX: D26.9 Other benign neoplasm of uterus, unspecified (principal); N93.9 Abnormal uterine and vaginal bleeding, unspecified; F17.210 Nicotine dependence, cigarettes, uncomplicated; F11.90 Opioid use, unspecified, uncomplicated; Z12.4 Encounter for screening for malignant neoplasm of cervix
CPT/HCPCS: 58100; 87480; 87491; 87510; 87591; 87624; 87625; 87660; 88142; 88305; 99202

== ENCOUNTER 2020-04-22 16:02 | Outpatient (REF) | payer OTHER, SELFPAY ==
--- NOTE | 2020-04-22 16:08 | US_ITS ---
EXAMINATION: ULTRASOUND PELVIS COMPLETE. CLINICAL INFORMATION: Benign neoplasm of the uterus COMPARISON: None TECHNIQUE: Transabdominal and transvaginal ultrasound the pelvis is performed. FINDINGS: The uterus is anteverted and anteflexed measuring 12.1 cm in length, 8.5 cm AP and 8.6 cm in transverse dimension. There are two uterine fibroids best seen on transabdominal ultrasound. 1. Lesion in the right body of uterus measures 6.4 x 5.3 x 4.6 cm. 2. Lesion in the left fundus/body junction measures 3.1 x 3.0 x 2.5 cm. Left ovary measures 1.9 x 2.5 x 1.8 cm. The right ovary is not seen well. US/US pelvic complete IMPRESSION: 1. There are two uterine fibroids seen. 2. The left ovary is unremarkable. The right ovary is normal.
--- NOTE | 2020-04-22 16:08 | US_ITS ---
EXAMINATION: ULTRASOUND PELVIS COMPLETE. CLINICAL INFORMATION: Benign neoplasm of the uterus COMPARISON: None TECHNIQUE: Transabdominal and transvaginal ultrasound the pelvis is performed. FINDINGS: The uterus is anteverted and anteflexed measuring 12.1 cm in length, 8.5 cm AP and 8.6 cm in transverse dimension. There are two uterine fibroids best seen on transabdominal ultrasound. 1. Lesion in the right body of uterus measures 6.4 x 5.3 x 4.6 cm. 2. Lesion in the left fundus/body junction measures 3.1 x 3.0 x 2.5 cm. Left ovary measures 1.9 x 2.5 x 1.8 cm. The right ovary is not seen well. US/US transvaginal IMPRESSION: 1. There are two uterine fibroids seen. 2. The left ovary is unremarkable. The right ovary is normal.
== END 2020-04-22 16:03 | disposition home or self-care (01) ==
LOC: HO.US 16:02
PROVIDERS: Visit Provider Obstetrics & Gynecology
DX: D26.9 Other benign neoplasm of uterus, unspecified (principal)
CPT/HCPCS: 76830; 76856

== ENCOUNTER → 2020-04-28 11:14 | Outpatient (BNVA) | payer OTHER, SELFPAY | PROVIDERS: PCP Internal Medicine; Visit Provider Obstetrics & Gynecology | DX: Z76.89 Persons encountering health services in other specified circumstances (principal) ==

== ENCOUNTER 2020-06-09 19:21 | Emergency (ER) | payer OTHER, SELFPAY ==
--- NOTE | ~2020-06-09 | CT_ITS ---
EXAMINATION: CT ABDOMEN AND PELVIS WITH CONTRAST CLINICAL INFORMATION: Bilateral lower quadrant and suprapubic pain. Epigastric pain. COMPARISON: Pelvic ultrasound 04/22/2020. CT 01/25/2020. TECHNIQUE: Multidetector volumetric images were obtained from the superior aspect of the liver through the pubic symphysis following administration 85 mL of Omnipaque 350 intravenous contrast. Sagittal and coronal reformatted images were obtained on the technologist's workstation. Oral contrast: No This CT examination was performed using dose optimization techniques as appropriate, variously including the following: *Automated exposure control *Adjustment of mA and/or kV according to patient size (this includes techniques or standardized protocols for targeted exams where dose is matched to indication/reason for exam; i.e. extremities or head) *Use of iterative reconstruction technique DLP: 502 mGy-cm FINDINGS: LUNG BASES: The visualized lung bases are unremarkable. LIVER, GALLBLADDER, AND BILIARY TREE: The liver is normal in size, shape, and attenuation. No focal hepatic lesion or biliary ductal dilatation is present. The gallbladder is unremarkable with no evidence of radiopaque gallstones, gallbladder wall thickening, or obvious pericholecystic inflammatory changes. PANCREAS: Mild atrophy of the pancreatic parenchyma with no focal lesion. No ductal dilatation. SPLEEN: Normal size spleen. Peripheral calcification along the lateral margin of the spleen. ADRENAL GLANDS: Unremarkable. KIDNEYS AND URETERS: The kidneys are normal in size, shape, and attenuation. No hydronephrosis, hydroureter, or calculi seen. No perinephric stranding. BLADDER: Unremarkable. GASTROINTESTINAL TRACT: The stomach is unremarkable. Normal caliber small bowel. There is no obstruction. There is diffuse fatty infiltration of the colonic wall, similar in appearance to the previous study. No acute pericolonic inflammatory change. No free air or free fluid. The appendix is likely absent. ABDOMINAL WALL: No significant hernia is appreciated. LYMPH NODES: Normal. VASCULAR: Normal caliber aorta with minimal atherosclerotic calcification. Retroaortic left renal vein. PELVIC VISCERA: Anteverted uterus with lobulated appearance. This is similar to the prior CT and consistent with the fibroids visualized on previous ultrasound. No significant change in configuration. There is no right adnexal lesion. There is a dominant follicle in the left ovary measuring 2.6 cm. OSSEOUS STRUCTURES: No acute or suspicious osseous abnormality. Degenerative changes noted in the spine at L4-L5 and L5-S1. CT/CT abdomen pelvis w con IMPRESSION: 1. Unchanged appearance of the uterus. Lobulated appearance consistent with fibroids seen on previous ultrasound. Unchanged configuration from the prior CT. There is a dominant left ovarian follicle measuring 2.6 cm. 2. Diffuse fatty infiltration of the colonic wall is unchanged from prior, suggestive of a chronic inflammatory process. No acute inflammatory changes of the colon.
[2020-06-09 19:56] VITALS: BP 137/82; PULSE 74; RESP 20; TEMP 36.3; O2SAT 97; BMI 30.7
[2020-06-09 21:03] LABS: MANUAL DIFF FLAG SCAN; PLT CLUMP 1; SCAN SMEAR FLAG 1
[2020-06-09 21:05] LABS: Basophils Percent Auto 0.3 % (0-2); Eosinophils Percent Auto 0.1 % (0-4); Hematocrit 37.4 % (37-47); Hemoglobin 11.6 g/dl (12.0-16.0); Imm Gran Abs Auto 0.03 X10*3/uL (0.00-0.03); Imm Gran Pct Auto 0.3 % (0.0-0.4); Lymphocytes Absolute Auto 1.3 X10*3/uL (1.2-4.9); Lymphocytes Percent Auto 12.1 % (20-40); Mean Corpuscular Hemoglobin 24.6 pg (27.0-33.0); Mean Corpuscular Volume 79.2 fL (80-98); Mean Platelet Volume 10.3 fL (9.4-12.3); Monocytes Absolute Auto 0.6 X10*3/uL (0.1-1.2); Monocytes Percent Auto 5.4 % (2-11); Neutrophils Absolute Auto 8.7 X10*3/uL (2.0-8.3); Neutrophils Percent Auto 81.8 % (45-73); Red Blood Count 4.72 X10*6/uL (4.20-5.50); Red Cell Distribution Width 26.9 % (11.0-16.0); White Blood Count 10.6 X10*3/uL (4.8-10.8)
[2020-06-09] MEDS: 0.9 % Sodium Chloride 1,000 ML 999 ML IV (21:14)
[2020-06-09 21:21] LABS: Platelet Count 201 X10*3/uL (160-400); SLIDE REVIEW VERIFIED
[2020-06-09 21:31] LABS: Alanine Aminotransferase 20 U/L (0-31); Albumin Level 4.2 g/dL (3.5-5.0); Alkaline Phosphatase 111 U/L (39-117); Anion Gap 21 (12-20); Aspartate Amino Transferase 46 U/L (5-31); Bilirubin Total 0.4 mg/dL (0.0-1.0); Blood Urea Nitrogen 8 mg/dL (9-16); Calcium 9.3 mg/dL (8.4-10.2); Carbon Dioxide 21 mmol/L (22-29); Chloride 104 mmol/L (96-108); Estimated Glomerular Filt Rate > 60; Glucose Random 159 mg/dL (60-115); Potassium 4.9 mmol/L (3.3-5.1); Sodium 141 mmol/L (135-145); Total Protein 8.3 g/dL (6.5-8.0)
--- NOTE | 2020-06-09 23:21 | ED.FEMALEGU ---
HPI - Female Genitourinary General Chief complaint: Vaginal Bleeding Stated complaint: nausea vomiting Time Seen by Provider: 06/09/20 22:45 Source: patient Mode of arrival: ambulatory Limitations: no limitations History of Present Illness HPI Narrative: Patient comes to emergency room complaining of suprapubic pain. Patient states she is known to have uterine fibroids. She is scheduled for hysterectomy next week. Patient states she cannot tolerate the pain, states she still has vaginal bleeding, bruising up to 10 pads per day Related Data Home Medications Medication Instructions Recorded Confirmed buprenorphine-naloxone [Suboxone] 1 film BUCCAL DAILY 01/25/20 01/25/20 omeprazole 20 mg PO DAILY 01/25/20 01/25/20 clonidine HCl 0.2 mg tablet 0.2 mg PO TID 04/04/20 Previous Rx's Medication Instructions Recorded ferrous sulfate 324 mg PO BIDWM #60 tab 01/27/20 folic acid 1 mg PO DAILY #30 tab 01/27/20 magnesium 200 mg PO DAILY #7 tab 01/27/20 nicotine 21 mg TRANSDERMAL DAILY #7 ea 01/27/20 potassium citrate 10 meq PO DAILY #3 tab 01/27/20 thiamine HCl (vitamin B1) 100 mg PO ONCE #30 tab 01/27/20 norethindrone (contraceptive) 0.35 0.35 mg PO DAILY #28 tab 04/28/20 mg tablet acetaminophen [Tylenol 8 Hour] 650 mg PO Q8H PRN #10 tab 06/10/20 ondansetron HCl [Zofran] 4 mg PO Q8H PRN #10 tab 06/10/20 Allergies Allergy/AdvReac Type Severity Reaction Status Date / Time sumatriptan [From IMITREX] Allergy Unknown INVOLUNTARY Verified 04/28/20 11:15 SPASMS bupropion [From Wellbutrin] AdvReac Unknown stomach Verified 05/26/20 09:52 upset Review of Systems Review of Systems: Constitutional : No Weight loss, No Fever, No Chills, No Night Sweats, No Fatigue, No Malaise ENT/Mouth : No Hearing loss, No Ear Pain, No Nasal Congestion, No Sinus Pain, No Hoarseness, No sore throat, No Rhinorrhea, No Swallowing Difficulty Eyes: No Eye Pain, No Swelling, No Redness, No Foreign Body, No Discharge, No Vision Changes Cardiovascular : No Chest Pain, No SOB, No Dyspnea on Exertion, No Orthopnea, No Edema, No Palpitations Respiratory : No Cough, No Sputum, No Wheezing, No Smoke Exposure, No Dyspnea Gastrointestinal : No Nausea, No Vomiting, No Diarrhea, No Constipation, complaining of suprapubic pain, No Hematochezia, No Melena Genitourinary : no irregular bleeding, No Dysuria, No Urinary Frequency, No Hematuria, No Urinary Incontinence, No Urgency, No Flank Pain, No Urinary Flow Changes, No Hesitancy Musculoskeletal : No joint pain, No Myalgias, No Joint Swelling Skin : No Skin Lesions, No rash Neuro : No Weakness, No Numbness, No Paresthesias, No Loss of Consciousness, No Dizziness, No Headache Psych : No Anxiety/Panic, No Depression, No SI/HI/AH/VH, No Social Issues, Heme/Lymph: No Bruising, No Bleeding,No Lymphadenopathy Endocrine : No Polyuria, No Polydipsia, No Temperature Intolerance PMFSH Past Medical History Medical History Alcohol abuse Fibroid Opiate dependence Uterine benign neoplasm Surgical History H/O myomectomy Hx of appendectomy Family History Family History Mother Multiple sclerosis Social History Social History Household Members: Spouse Housing: Apartment Alcohol intake: current Alcohol intake frequency: other Alcohol type: hard liquor Smoking Status: Current every day smoker Tobacco Type: Cigarette Packs Per Day: 2 Cigarettes Per Day: 40.0 Second Hand Smoke Exposure: Yes Substance Use Type: Opiates Advance Directives: No Advance Directives Information Provided: No service: No Current occupational status: employed Physical Exam Vital Signs: Vital Signs: Last Vital Signs Temp 97.3 F 06/09/20 19:56 Pulse 74 06/09/20 19:56 Resp 20 06/09/20 19:56 BP 137/82 06/09/20 19:56 Pulse Ox 97 06/09/20 19:56 Body Mass Index 30.7 Appearance: Alert. Oriented X3. No acute distress. Eyes: Pupils equal, round and reactive to light. ENT: Pharynx normal. Neck: Normal inspection. Neck supple. No lymph nodes noted. No crepitus CVS: Normal heart rate and rhythm. Pulses normal. Normal S1 and S2 Respiratory: No respiratory distress. Breath sounds normal. No Wheezing. No rales Abdomen: Soft, tenderness to palpation in suprapubic and epigastric area No rigidity. No distention. good BS x4 : Patient declined pelvic exam Skin: Skin warm and dry. Normal skin color. Normal skin turgor. Extremities: No lower extremity edema. No lower extremity edema. No Lacerations. No Rash Neuro: Oriented X 3. No motor deficit. No sensory deficit. Moving all extermities. No slurred speech. Course Course Course Narrative: I discussed with Dr. Dial from [facility] if an ultrasound versus CT scan would be more helpful to identify patient's pain exacerbation. Unfortunately, neither 1 can assess if the patient has a torsed fibroid. Considering that the patient has upper abdominal pain as well, patient will get a CT scan. I discussed the CT scan with the patient, patient's labs were discussed as well, blood levels are stable. Patient will follow-up next week for preop for hysterectomy with Dr. Yang. Overall patient states that she is feeling much better. MDM - Female Genitourinary Lab Data Result diagrams: 06/09/20 20:57 06/09/20 20:57 Labs: Lab Results 06/09/20 06/09/20 06/09/20 Range/Units 20:57 20:57 21:02 WBC 10.6 (4.8-10.8) X10*3/uL RBC 4.72 D (4.20-5.50) X10*6/uL Hgb 11.6 L D (12.0-16.0) g/dl Hct 37.4 D (37-47) % MCV 79.2 L (80-98) fL MCH 24.6 L (27.0-33.0) pg MCHC 31.0 (31.0-35.0) g/dl RDW 26.9 H (11.0-16.0) % Plt Count 201 (160-400) X10*3/uL MPV 10.3 (9.4-12.3) fL Immature Gran % (Auto) 0.3 (0.0-0.4) % Neut % (Auto) 81.8 H (45-73) % Lymph % (Auto) 12.1 L (20-40) % [place] % (Auto) 5.4 (2-11) % Eos % (Auto) 0.1 (0-4) % Baso % (Auto) 0.3 (0-2) % Lymph # (Auto) 1.3 (1.2-4.9) X10*3/uL [place] # (Auto) 0.6 (0.1-1.2) X10*3/uL Eos # (Auto) 0.0 (0.0-0.4) X10*3/uL Baso # (Auto) 0.0 (0.0-0.2) X10*3/uL Abs Immat Gran (auto) 0.03 (0.00-0.03) X10*3/uL Absolute Neuts (auto) 8.7 H (2.0-8.3) X10*3/uL Absolute Nucleated RBC 0.000 (0.0-0.012) X10*3/uL Nucleated RBC % (auto) 0.0 (0.0-0.2) /100WBC Smear Tech's Comments VERIFIED Hold Blue Top SEE NOTE Sodium 141 (135-145) mmol/L Potassium 4.9 (3.3-5.1) mmol/L Chloride 104 (96-108) mmol/L Carbon Dioxide 21 L (22-29) mmol/L Anion Gap 21 H (12-20) BUN 8 L D (9-16) mg/dL Creatinine 0.73 (0.5-1.4) mg/dL Estim Creat Clear Calc 104.0 Estimated GFR > 60 Random Glucose 159 H (60-115) mg/dL Calcium 9.3 D (8.4-10.2) mg/dL Total Bilirubin 0.4 (0.0-1.0) mg/dL AST 46 H D (5-31) U/L ALT 20 (0-31) U/L Alkaline Phosphatase 111 (39-117) U/L Total Protein 8.3 H (6.5-8.0) g/dL Albumin 4.2 (3.5-5.0) g/dL Discharge Plan Discharge Clinical Impression: Fibroid, uterine Patient Disposition: Home, Self-Care Instructions: Abdominal Pain (ED) Prescriptions: New ondansetron HCl [Zofran] 4 mg tablet 4 mg PO Q8H PRN (Reason: nausea and vomiting) Qty: 10 RF: 0 acetaminophen [Tylenol 8 Hour] 650 mg tablet extended release 650 mg PO Q8H PRN (Reason: pain) Qty: 10 RF: 0 No Action omeprazole 20 mg Capsule,Delayed Release(Dr/Ec) 20 mg PO DAILY RF: 0 buprenorphine-naloxone [Suboxone] 8-2 mg Film 1 film BUCCAL DAILY RF: 0 thiamine HCl (vitamin B1) 100 mg Tablet 100 mg PO ONCE Qty: 30 RF: 0 nicotine 21 mg/24 hr Patch 24 Hour 21 mg transdermal DAILY Qty: 7 RF: 0 folic acid 1 mg Tablet 1 mg PO DAILY Qty: 30 RF: 0 ferrous sulfate 324 mg (65 mg iron) Tablet,Delayed Release (Dr/Ec) 324 mg PO BIDWM Qty: 60 RF: 0 magnesium 200 mg tablet 200 mg PO DAILY Qty: 7 RF: 0 potassium citrate 10 mEq (1,080 mg) tablet extended release 10 meq PO DAILY Qty: 3 RF: 0 clonidine HCl 0.2 mg tablet 0.2 mg PO TID RF: 0 norethindrone (contraceptive) 0.35 mg tablet 0.35 mg PO DAILY Qty: 28 RF: 1
--- NOTE | 2020-06-09 23:26 | PC.NURSE ---
pt to room, chg into gown and MD at bedside for eval.
[2020-06-09] MEDS: Morphine Sulfate 4 MG/ML CARTRIDGE IVPUSH (23:34)
[2020-06-09] MEDS: ondansetron HCL 4 MG/2 ML VIAL IVPUSH (23:34)
--- NOTE | 2020-06-09 23:45 | PC.NURSE ---
IV PLACED TO RAC, NS UP AND INFUSING W/O DIFFICULTY. PT RATING PAIN 10/10. PT MEDICATED PER EMAR FOR PAIN AND NAUSEA. PT TO CT IN STRETCHER AT THIS TIME.
[2020-06-09] MEDS: iohexoL 350 MG/ML 100 ML INFUS..BTL 85 ML IV (23:58)
[2020-06-10] MEDS: Morphine Sulfate 2 MG/ML CARTRIDGE IVPUSH (00:56)
[2020-06-10] MEDS: Prochlorperazine Edisylate 10 MG/2 ML VIAL 5 MG IVPUSH (00:57)
== END 2020-06-10 03:15 | disposition home or self-care (01) ==
PROVIDERS: Emergency Provider Emergency Medicine
DX: D25.9 Leiomyoma of uterus, unspecified (principal); N83.02 Follicular cyst of left ovary; R10.30 Lower abdominal pain, unspecified; F11.20 Opioid dependence, uncomplicated; F10.10 Alcohol abuse, uncomplicated; Z79.899 Other long term (current) drug therapy; F17.210 Nicotine dependence, cigarettes, uncomplicated
CPT/HCPCS: 36415; 74177; 80053; 85025; 96361; 96374; 96375; 99283; 99284; J2270; J2405; Q9967

== ENCOUNTER → 2020-06-24 14:47 | Outpatient (BNVA) | payer OTHER, SELFPAY | PROVIDERS: Visit Provider Obstetrics & Gynecology | DX: N93.9 Abnormal uterine and vaginal bleeding, unspecified (principal) | CPT/HCPCS: 99212 ==

== ENCOUNTER 2020-06-26 10:14 | Inpatient (IN) | payer OTHER, SELFPAY ==
[2020-06-26] VITALS (11 sets, daily range): BP systolic 112–133; BP diastolic 62–84; PULSE 90–103; RESP 16–20; TEMP 36.4–36.9; O2SAT 91–100; BMI 31.9
--- NOTE | ~2020-06-26 | US_ITS ---
EXAMINATION: US VENOUS ULTRASOUND WITH DOPPLER LOWER EXTREMITY, LEFT CLINICAL INFORMATION: Edema and pain left lower extremity. Assess for DVT. COMPARISON: CT abdomen and pelvis with contrast 06/09/2020. TECHNIQUE: Ultrasound of the deep veins is performed from the hip to the calf with compression sonography and color and pulse Doppler assessment. Spectral analysis with color-flow imaging is performed. Technically challenging exam due to the edema in the distal thigh and proximal calf. FINDINGS: There is normal venous compression and respiratory variation and augmented flow. The visualized common femoral vein, superficial femoral vein, profunda femoral vein, popliteal vein, and the trifurcation region shows no evidence of deep venous thrombosis. There is limited visualization of the hernial veins due to the edema. Visualized portions appear compressible and patent. No popliteal fossa cyst. US/US venous duplex LE LT IMPRESSION: No DVT demonstrated in the left lower extremity. If the patient's symptoms persist, followup ultrasound in 5 days 7 days may be considered to exclude proximal propagation from a non-visualized calf vein.
--- NOTE | 2020-06-26 10:57 | ED.GENADULT ---
HPI - General Adult General Chief complaint: General Medical Stated complaint: Left Lower Cellulitis Time Seen by Provider: 06/26/20 10:33 Source: patient Mode of arrival: wheelchair Limitations: no limitations History of Present Illness HPI narrative: 44-year-old female here, sent by short-stay surgery. Patient was scheduled for hysterectomy this morning and was found to have swelling, redness, and pain. Patient denies any trauma, denies any fevers or chills. Denies recent travel. Patient was scheduled for hysterectomy today. Denies any SOB with or without exertion. Patient reports that she had this for over 1 week. States that this is been getting progressively worse, with increasing swelling and pain. Related Data Home Medications Medication Instructions Recorded Confirmed buprenorphine-naloxone [Suboxone] 1 film BUCCAL DAILY 01/25/20 06/20/20 diphenhydramine HCl [Benadryl] 25 mg PO BEDTIME PRN 06/26/20 06/26/20 Previous Rx's Medication Instructions Recorded nicotine 21 mg TRANSDERMAL DAILY #7 ea 01/27/20 omeprazole 20 mg capsule,delayed 20 mg PO DAILY 90 Days #90 cap 06/20/20 release Allergies Allergy/AdvReac Type Severity Reaction Status Date / Time sumatriptan [From IMITREX] Allergy Unknown INVOLUNTARY Verified 06/26/20 12:34 SPASMS bupropion [From Wellbutrin] AdvReac Unknown stomach Verified 06/26/20 12:34 upset Review of Systems Review of Systems: Yes all other systems are reviewed and are negative PMFSH Past Medical History Medical History Alcohol abuse Fibroid Opiate dependence Uterine benign neoplasm Surgical History H/O myomectomy Hx of appendectomy Family History Family History Mother Multiple sclerosis Social History Social History Household Members: Spouse Housing: Apartment Alcohol intake: current Alcohol intake frequency: holidays/special occasions only Alcohol type: hard liquor Smoking Status: Current every day smoker Tobacco Type: Cigarette Packs Per Day: 2 Cigarettes Per Day: 40.0 Smoked in Last 30 Days: Yes Second Hand Smoke Exposure: Yes Use of substances other than those prescribed or required for medical reasons: No Substance Use Type: Opiates Advance Directives: No Advance Directives Information Provided: No service: No Current occupational status: employed Physical Exam Vital Signs: Vital Signs: Last Vital Signs Temp 98.1 F 06/26/20 11:43 Pulse 94 06/26/20 16:21 Resp 18 06/26/20 16:21 BP 127/77 06/26/20 16:21 Pulse Ox 96 06/26/20 16:21 Body Mass Index 31.9 Const: General: cooperative, healthy appearing and comfortable Nutritional Appearance: average body habitus Orientation/consciousness: patient oriented x3 Limitations: no limitations HENMT: Head: Yes normal to inspection Ears: hearing grossly normal bilaterally General nose exam: Normal external nose present Face and sinus: Yes normal facial exam Mouth: Normal oral and palatal mucosa present Throat: Yes posterior oropharynx normal Eyes: General: appearance normal, both eyes and all related structures Eyelids: Yes eyelids normal Conjunctivae: conjunctivae normal Sclerae: sclerae normal Pupils: Equal, round and reactive pupils present Neck: Neck: Yes normal visual inspection, Yes full ROM, Yes no lymphadenopathy, Yes trachea midline and Yes supple Thyroid: Thyroid normal Lymphatic: no lymphadenopathy noted Chest: Chest palpation & inspection: normal inspection of the chest Resp: Effort & Inspection: normal respiratory effort and able to speak in complete sentences Auscultation: clear to auscultation bilaterally Cardio: Jugular venous distension: no JVD Rate: regular rate Rhythm: regular rhythm Heart sounds: S1 normal heart sound present, S2 normal heart sound present, no gallops, no murmurs and no rubs Peripheral pulses: Peripheral pulses 2+ throughout GI: Inspection: Yes normal to inspection and No distended Palpation (GI): No hepatosplenomegaly present and No Rebound tenderness present Percussion: Yes normal to percussion Auscultation: normal bowel sounds Back/Spine/Pelvis: Cervical Spine: cervical ROM normal and No cervical muscular tenderness Thoracic/Lumbar Spine: thoracic and lumbar spine normal to inspection Skin: General skin exam: elasticity normal and turgor normal Neuro: General: patient oriented x3 Cranial nerves: Yes Equal, round and reactive pupils present Extrem: General: Yes normal to inspection, Yes full ROM and Yes capillary refill normal Psych: Appearance: grossly normal Mental Status: mental status grossly normal Speech and movement: Normal speech and movement present Affect: normal affect Attitude: cooperative Thought process: Normal thought process present Insight: Good insight present (Psych) Course Course Course Narrative: 44-year-old female here today for left lower extremity swelling, redness. Patient denies any trauma, recent travel, fever or chills Reevaluation(s) Reevaluation #1: Patient was medicated with morphine, fluids up and running. Results from her labs reviewed. Lactic acid 2.1. Patient got her 1st dose of cefazolin after blood cultures were drawn. Patient is waiting for ultrasound. Continue to monitor for pain. Time: 12:46 Reevaluation #2: Patient continues to have tremors. I did talk with patient to see if she has been drinking. Patient denies drinking any alcohol since Verma's Day. Patient states that her tremors are because she is in a lot of pain. I will order her lorazepam. Patient is agreeable to plan of care Time: 13:35 Reevaluation #3: Patient pain returns 8/10 awaiting to go to ultrasound. I will order Dilaudid 1 mg. Additional Reevaluation(s): Duplex ultrasound negative for DVT. Patient's leg continues to be red and swollen. Will admit for IV antibiotics. Patient does not meet the criteria for sepsis. She received 1 L of fluid, however due to her lower extremity edema will hold off on the fluids. I will order her Lasix to take some of the fluid off. Report given to hospitalist awaiting admission Medical Decision Making Lab Data Result diagrams: 06/26/20 11:39 06/26/20 11:39 Labs: Lab Results 06/26/20 06/26/20 06/26/20 Range/Units 11:39 11:39 11:39 WBC 8.1 (4.8-10.8) X10*3/uL RBC 3.57 L D (4.20-5.50) X10*6/uL Hgb 8.8 L D (12.0-16.0) g/dl Hct 29.0 L D (37-47) % MCV 81.2 (80-98) fL MCH 24.6 L (27.0-33.0) pg MCHC 30.3 L (31.0-35.0) g/dl RDW 24.1 H (11.0-16.0) % Plt Count 488 H D (160-400) X10*3/uL MPV 9.5 (9.4-12.3) fL Immature Gran % (Auto) 0.2 (0.0-0.4) % Neut % (Auto) 67.9 (45-73) % Lymph % (Auto) 21.8 (20-40) % [place] % (Auto) 7.9 (2-11) % Eos % (Auto) 1.8 (0-4) % Baso % (Auto) 0.4 (0-2) % Lymph # (Auto) 1.8 (1.2-4.9) X10*3/uL [place] # (Auto) 0.6 (0.1-1.2) X10*3/uL Eos # (Auto) 0.2 (0.0-0.4) X10*3/uL Baso # (Auto) 0.0 (0.0-0.2) X10*3/uL Abs Immat Gran (auto) 0.02 (0.00-0.03) X10*3/uL Absolute Neuts (auto) 5.5 (2.0-8.3) X10*3/uL Absolute Nucleated RBC 0.000 (0.0-0.012) X10*3/uL Nucleated RBC % (auto) 0.0 (0.0-0.2) /100WBC Sodium 136 (135-145) mmol/L Potassium 4.6 (3.3-5.1) mmol/L Chloride 103 (96-108) mmol/L Carbon Dioxide 25 (22-29) mmol/L Anion Gap 13 (12-20) BUN 4 L (9-16) mg/dL Creatinine 0.62 (0.5-1.4) mg/dL Estim Creat Clear Calc 124.9 Estimated GFR > 60 Random Glucose 128 H (60-115) mg/dL Lactic Acid 2.1 H* (0.5-2.0) mmol/L Lactic Acid Fup @ 2Hr (0.5-2.0) mmol/L Calcium 8.2 L D (8.4-10.2) mg/dL Total Bilirubin < 0.2 (0.0-1.0) mg/dL AST 14 D (5-31) U/L ALT 11 (0-31) U/L Alkaline Phosphatase 75 D (39-117) U/L Total Protein 5.9 L D (6.5-8.0) g/dL Albumin 3.2 L D (3.5-5.0) g/dL 06/26/20 Range/Units 14:34 WBC (4.8-10.8) X10*3/uL RBC (4.20-5.50) X10*6/uL Hgb (12.0-16.0) g/dl Hct (37-47) % MCV (80-98) fL MCH (27.0-33.0) pg MCHC (31.0-35.0) g/dl RDW (11.0-16.0) % Plt Count (160-400) X10*3/uL MPV (9.4-12.3) fL Immature Gran % (Auto) (0.0-0.4) % Neut % (Auto) (45-73) % Lymph % (Auto) (20-40) % [place] % (Auto) (2-11) % Eos % (Auto) (0-4) % Baso % (Auto) (0-2) % Lymph # (Auto) (1.2-4.9) X10*3/uL [place] # (Auto) (0.1-1.2) X10*3/uL Eos # (Auto) (0.0-0.4) X10*3/uL Baso # (Auto) (0.0-0.2) X10*3/uL Abs Immat Gran (auto) (0.00-0.03) X10*3/uL Absolute Neuts (auto) (2.0-8.3) X10*3/uL Absolute Nucleated RBC (0.0-0.012) X10*3/uL Nucleated RBC % (auto) (0.0-0.2) /100WBC Sodium (135-145) mmol/L Potassium (3.3-5.1) mmol/L Chloride (96-108) mmol/L Carbon Dioxide (22-29) mmol/L Anion Gap (12-20) BUN (9-16) mg/dL Creatinine (0.5-1.4) mg/dL Estim Creat Clear Calc Estimated GFR Random Glucose (60-115) mg/dL Lactic Acid (0.5-2.0) mmol/L Lactic Acid Fup @ 2Hr 1.3 (0.5-2.0) mmol/L Calcium (8.4-10.2) mg/dL Total Bilirubin (0.0-1.0) mg/dL AST (5-31) U/L ALT (0-31) U/L Alkaline Phosphatase (39-117) U/L Total Protein (6.5-8.0) g/dL Albumin (3.5-5.0) g/dL Discharge Plan Discharge Clinical Impression: Cellulitis of left lower leg, Edema, peripheral Patient Disposition: Admitted As Inpatient
[2020-06-26] MEDS: 0.9 % Sodium Chloride 1,000 ML 999 ML IV (11:50)
[2020-06-26] MEDS: Morphine Sulfate 4 MG/ML CARTRIDGE IVPUSH (11:51)
[2020-06-26] MEDS: ceFAZolin Sodium/Dextrose,Iso 2 GM/50 ML PIGGYBACK IV (11:51)
[2020-06-26 11:54] LABS: MANUAL DIFF FLAG NO
[2020-06-26 12:05] LABS: Basophils Percent Auto 0.4 % (0-2); Eosinophils Absolute Auto 0.2 X10*3/uL (0.0-0.4); Eosinophils Percent Auto 1.8 % (0-4); Imm Gran Abs Auto 0.02 X10*3/uL (0.00-0.03); Imm Gran Pct Auto 0.2 % (0.0-0.4); Lymphocytes Absolute Auto 1.8 X10*3/uL (1.2-4.9); Lymphocytes Percent Auto 21.8 % (20-40); Mean Corpuscular HGB Conc 30.3 g/dl (31.0-35.0); Mean Corpuscular Hemoglobin 24.6 pg (27.0-33.0); Mean Corpuscular Volume 81.2 fL (80-98); Mean Platelet Volume 9.5 fL (9.4-12.3); Monocytes Absolute Auto 0.6 X10*3/uL (0.1-1.2); Monocytes Percent Auto 7.9 % (2-11); Neutrophils Absolute Auto 5.5 X10*3/uL (2.0-8.3); Neutrophils Percent Auto 67.9 % (45-73); Platelet Count 488 X10*3/uL (160-400); Red Blood Count 3.57 X10*6/uL (4.20-5.50); Red Cell Distribution Width 24.1 % (11.0-16.0); White Blood Count 8.1 X10*3/uL (4.8-10.8)
[2020-06-26 12:07] LABS: Hemoglobin 8.8 g/dl (12.0-16.0)
[2020-06-26 12:18] LABS: Lactic Acid 2.1 mmol/L (0.5-2.0)
[2020-06-26 12:19] LABS: Alanine Aminotransferase 11 U/L (0-31); Albumin Level 3.2 g/dL (3.5-5.0); Alkaline Phosphatase 75 U/L (39-117); Anion Gap 13 (12-20); Aspartate Amino Transferase 14 U/L (5-31); Bilirubin Total < 0.2 mg/dL (0.0-1.0); Blood Urea Nitrogen 4 mg/dL (9-16); Calcium 8.2 mg/dL (8.4-10.2); Carbon Dioxide 25 mmol/L (22-29); Chloride 103 mmol/L (96-108); Creatinine Clr Calc Pharmacy 124.9; Estimated Glomerular Filt Rate > 60; Glucose Random 128 mg/dL (60-115); Potassium 4.6 mmol/L (3.3-5.1); Sodium 136 mmol/L (135-145); Total Protein 5.9 g/dL (6.5-8.0)
[2020-06-26] MEDS: LORazepam 2 MG/ML VIAL 1 MG IVPUSH (12:58)
[2020-06-26 13:45] LABS: Reflex Lactate? Lactic Acid Added
[2020-06-26] MEDS: HYDROmorphone HCl 1 MG/ML SYRINGE IVPUSH ×3 (13:50→17:32)
[2020-06-26 15:13] LABS: ~Lactic Acid-LAB USE ONLY 1.3 mmol/L (0.5-2.0)
--- NOTE | 2020-06-26 15:45 | PC.NURSE ---
Unable to locate pt in main ED- pt found outside ED entrance, educated and verbalized understanding need to stay in department/room.
[2020-06-26] MEDS: Furosemide 20 MG/2 ML VIAL IVPUSH (17:03)
--- NOTE | 2020-06-26 17:04 | PM.IMHP ---
History of Present Illness Date of Service: 06/26/20 Chief Complaint: Left leg pain This is a 44-year-old female who was sent to the emergency department for left leg pain and redness. Patient was in short-stay surgery for planned hysterectomy but she was noted to have swelling of her left leg and was therefore recommended to go to the emergency department. The patient states that she has noticed of redness, swelling and pain which has been progressively worsening over the past week and a half. She denies any trauma or open wounds. She does report associated intermittent chills. For emergency department her lab work was unremarkable with the exception of a lactic acid of 2.1. This resolved on repeat after IV fluid. She did not meet sepsis criteria. She was started on IV Ancef. She required multiple doses of IV pain medicine for adequate pain control. Due to need for pain control and large area of cellulitis the decision was made to admit her to the hospital for further management. Review of Systems Review of Systems: Yes all other systems are reviewed and are negative Constitutional: Constitutional: Reports chills and Denies fever(s) Cardiovascular: Cardiovascular: Denies chest pain Respiratory: Respiratory: Denies cough Gastrointestinal: Gastrointestinal: Denies abdominal pain [facility] Medical History (Updated 06/26/20 @ 17:10 by WOODROW Whitney) Alcohol abuse Chronic GERD Fibroid Opiate dependence Uterine benign neoplasm Functional capacity: independent ambulation Family History Mother Multiple sclerosis Family history: reviewed and not pertinent Surgical History H/O myomectomy Hx of appendectomy Social History Household Members: Spouse Housing: Apartment Alcohol intake: current Alcohol intake frequency: holidays/special occasions only Alcohol type: hard liquor Smoking Status: Current every day smoker Tobacco Type: Cigarette Packs Per Day: 2 Cigarettes Per Day: 40.0 Smoked in Last 30 Days: Yes Second Hand Smoke Exposure: Yes Use of substances other than those prescribed or required for medical reasons: No Substance Use Type: Opiates Advance Directives: No Advance Directives Information Provided: No service: No Current occupational status: employed Meds Allergies Allergy/AdvReac Type Severity Reaction Status Date / Time sumatriptan [From IMITREX] Allergy Unknown INVOLUNTARY Verified 06/26/20 12:34 SPASMS bupropion [From Wellbutrin] AdvReac Unknown stomach Verified 06/26/20 12:34 upset Active Medications: Current Medications Generic Name Dose Route Start Last Admin Trade Name Freq PRN Reason Stop Dose Admin Pharmacy Consult 1 each 06/26/20 16:02 Consult Rx Perform Med Rec MISCELLANE ONCE PRN Consult order Home Medications Medication Instructions Recorded Confirmed Last Taken Type buprenorphine-naloxone [Suboxone] 3 film BUCCAL DAILY 01/25/20 06/26/20 06/26/20 08:00 History diphenhydramine HCl [Benadryl] 25 mg PO BEDTIME PRN 06/26/20 06/26/20 Unknown History Physical Exam Vital Signs and Narrative: Vital Signs: Last Vital Signs Temp 97.5 F 06/26/20 17:01 Pulse 90 06/26/20 17:01 Resp 16 06/26/20 17:01 BP 121/63 06/26/20 17:01 Pulse Ox 99 06/26/20 17:01 Body Mass Index 31.9 Const: Nutritional Appearance: well nourished Orientation/consciousness: patient oriented x3 HENMT: Head: Yes normocephalic and Yes atraumatic Eyes: Sclerae: sclerae normal Chest: Chest palpation & inspection: normal inspection of the chest Resp: Effort & Inspection: normal respiratory effort and no respiratory distress Auscultation: clear to auscultation bilaterally Cardio: Rate: regular rate Rhythm: regular rhythm GI: Palpation (GI): Soft to palpation and nontender Skin: Other: Neuro: General: patient oriented x3 Cranial nerves: Yes CN's II-XII intact bilaterally and Yes Bilaterally intact EOM present Results Labs CBC and Chem 7: 06/26/20 11:39 06/26/20 11:39 Labs: Laboratory Results - last 24 hr 06/26/20 06/26/20 06/26/20 11:39 11:39 11:39 MCV 81.2 MCH 24.6 L MCHC 30.3 L RDW 24.1 H Plt Count 488 H D MPV 9.5 Immature Gran % (Auto) 0.2 Neut % (Auto) 67.9 Lymph % (Auto) 21.8 [place] % (Auto) 7.9 Eos % (Auto) 1.8 Baso % (Auto) 0.4 Lymph # (Auto) 1.8 [place] # (Auto) 0.6 Eos # (Auto) 0.2 Baso # (Auto) 0.0 Abs Immat Gran (auto) 0.02 Absolute Neuts (auto) 5.5 Absolute Nucleated RBC 0.000 Nucleated RBC % (auto) 0.0 Anion Gap 13 Estim Creat Clear Calc 124.9 Estimated GFR > 60 Random Glucose 128 H Lactic Acid 2.1 H* Lactic Acid Fup @ 2Hr Calcium 8.2 L D Total Bilirubin < 0.2 AST 14 D ALT 11 Alkaline Phosphatase 75 D Total Protein 5.9 L D Albumin 3.2 L D 06/26/20 14:34 MCV MCH MCHC RDW Plt Count MPV Immature Gran % (Auto) Neut % (Auto) Lymph % (Auto) [place] % (Auto) Eos % (Auto) Baso % (Auto) Lymph # (Auto) [place] # (Auto) Eos # (Auto) Baso # (Auto) Abs Immat Gran (auto) Absolute Neuts (auto) Absolute Nucleated RBC Nucleated RBC % (auto) Anion Gap Estim Creat Clear Calc Estimated GFR Random Glucose Lactic Acid Lactic Acid Fup @ 2Hr 1.3 Calcium Total Bilirubin AST ALT Alkaline Phosphatase Total Protein Albumin Imaging Radiologist's Impressions: Impressions Venous Duplex 06/26/20 10:51 IMPRESSION: No DVT demonstrated in the left lower extremity. If the patient's symptoms persist, followup ultrasound in 5 days 7 days may be considered to exclude proximal propagation from a non-visualized calf vein. Assessment and Plan (1) Cellulitis of left lower leg: Status: Acute This is a 44-year-old female sent from short-stay surgery for left leg pain and swelling found to have cellulitis Left lower extremity cellulitis From left knee to left ankle No evidence of sepsis -IV Ancef -pain control anemia chronic. r/t abnormal uterine bleeding had planned for hysterectomy today, but surgery was aborted due to leg swelling h/o opiate dependence -continue suboxone h/o etoh abuse pt denies drinking regularly at this time. does not appear to be in alcohol withdrawal -monitor for withdrawal on CIWA scale tobacco depenence -NRT dvt ppx - lovenox code status - full code this case was discussed with Dr. Montesinos
--- NOTE | 2020-06-26 17:48 | PC.NURSE ---
Report given to Fernie. She stated no questions or concerns at this time.
[2020-06-26] MEDS: Enoxaparin Sodium 40 MG/0.4 ML SYRINGE SUBCUT (18:35)
--- NOTE | 2020-06-26 19:29 | PC.NURSE ---
Pt left the unit during shift change for aprox ~ 20min. She had previously asked this RN if she could walk around to stretch her legs and was told yes, but did not ask to leave the unit. When pt returned she stated she went to get a soda from the vending machine and got lost. Security had been called and cancelled when the pt returned. Pt reported she was told by the ED staff that it was OK now to leave the unit. Pt advised that she could not leave the unit, for safety she needed to remain on the floor. Nursing tire center supervisor updated. Pt appears at baseline, no change in status.
[2020-06-26] MEDS: Morphine Sulfate 2 MG/ML CARTRIDGE IVPUSH (20:18)
[2020-06-26] MEDS: diphenhydrAMINE HCL 25 MG TABLET PO (20:19)
[2020-06-26] MEDS: 0.9 % Sodium Chloride Flush 3 ML SYRINGE IVFLUSH (20:19)
[2020-06-27] MEDS: Morphine Sulfate 2 MG/ML CARTRIDGE IVPUSH ×3 (03:57→12:28)
[2020-06-27 04:00] VITALS: BP 124/70; PULSE 95; RESP 18; TEMP 36.9; O2SAT 95
[2020-06-27] MEDS: oxyCODONE HCl Immed Release 5 MG TABLET PO ×2 (04:59→11:08)
[2020-06-27 08:00] VITALS: BP 141/70; PULSE 95; RESP 19; TEMP 36.7; O2SAT 95
[2020-06-27] MEDS: Buprenorphine/Naloxone 8/2 mg FILM 3 FILM BUCCAL (08:33)
[2020-06-27] MEDS: Omeprazole 20 MG CAPSULE.DR PO (08:33)
[2020-06-27] MEDS: Nicotine 21 MG PATCH.TD24 TRANSDERMA (08:35)
[2020-06-27] MEDS: 0.9 % Sodium Chloride Flush 3 ML SYRINGE IVFLUSH (08:38)
--- NOTE | 2020-06-27 11:24 | P.DS_ITS ---
DS: Providers Provider Date of Service: 06/27/20 <WOODROW Whitney - Last Filed: 06/27/20 11:32> 06/27/20 <Bonnie Joshi MD - Last Filed: 06/27/20 18:50> Date of admission: 06/26/20 17:03 <WOODROW Whitney - Last Filed: 06/27/20 11:32> Primary care physician: Betty Page MD <WOODROW Whitney - Last Filed: 06/27/20 11:32> DS: Diagnosis Discharge Diagnosis (1) Cellulitis of left lower leg: Status: Acute <WOODROW Whitney - Last Filed: 06/27/20 11:32> DS: Medications Discharge Medications Home Medications: Home Medications Medication Instructions Recorded Confirmed buprenorphine-naloxone [Suboxone] 3 film BUCCAL DAILY 01/25/20 06/26/20 diphenhydramine HCl [Benadryl] 25 mg PO BEDTIME PRN 06/26/20 06/26/20 Previous Rx's Medication Instructions Recorded nicotine 21 mg TRANSDERMAL DAILY #7 ea 01/27/20 omeprazole 20 mg capsule,delayed 20 mg PO DAILY 90 Days #90 cap 06/20/20 release <WOODROW Whitney - Last Filed: 06/27/20 11:32> DS: Summary Hospital Course Hospital Course: This is a 44-year-old female who was sent to the emergency department for left leg pain and redness. Patient was in short-stay surgery for planned hysterectomy but she was noted to have swelling of her left leg and was therefore recommended to go to the emergency department. The patient states that she has noticed of redness, swelling and pain which has been progressively worsening over the past week and a half. She denies any trauma or open wounds. She does report associated intermittent chills. For emergency department her lab work was unremarkable with the exception of a lactic acid of 2.1. This resolved on repeat after IV fluid. She did not meet sepsis criteria. She was started on IV Ancef. She required multiple doses of IV pain medicine for adequate pain control. Due to need for pain control and large area of cellulitis the decision was made to admit her to the hospital for further management. The patient was admitted to the medical-surgical floor. She was treated with IV Kefzol. She had no evidence of sepsis. Her erythema and pain has improved slightly however patient is eager to return home and prefers not to spend another night in the hospital. She will be discharged home with oral antibiotics. <WOODROW Whitney - Last Filed: 06/27/20 11:32> Time Spent with Patient Time attestation: Total time spent providing and/or coordinating discharge services: <WOODROW Whitney Last Filed: 06/27/20 11:32> Discharge coordination time: Greater than 30 minutes <WOODROW Whitney Last Filed: 06/27/20 11:32> Physical Exam Vital Signs: Vital Signs: Last Vital Signs Temp 98.1 F 06/27/20 08:00 Pulse 95 06/27/20 08:00 Resp 19 06/27/20 08:00 BP 141/70 H 06/27/20 08:00 Pulse Ox 95 06/27/20 08:00 Body Mass Index 31.9 <WOODROW Whitney Last Filed: 06/27/20 11:32> Const: Nutritional Appearance: well nourished <WOODROW Whitney Last Filed: 06/27/20 11:32> Orientation/consciousness: patient oriented x3 <WOODROW Whitney Last Filed: 06/27/20 11:32> HENMT: Head: Yes normocephalic and Yes atraumatic <WOODROW Whitney Last Filed: 06/27/20 11:32> Eyes: Sclerae: sclerae normal <WOODROW Whitney Last Filed: 06/27/20 11:32> Chest: Chest palpation & inspection: normal inspection of the chest <WOODROW Whitney Last Filed: 06/27/20 11:32> Resp: Effort & Inspection: normal respiratory effort and no respiratory distress <WOODROW Whitney Last Filed: 06/27/20 11:32> Auscultation: clear to auscultation bilaterally <WOODROW Whitnye Last Filed: 06/27/20 11:32> Cardio: Rate: regular rate <WOODROW Whitney Filed: 06/27/20 11:32> Rhythm: regular rhythm <WOODROW Whitney - Last Filed: 06/27/20 11:32> GI: Palpation (GI): Soft to palpation and nontender <WOODROW Whitney - Last Filed: 06/27/20 11:32> Skin: Other: mild erythema of left leg which extends from left ankle to left knee. less swelling. less tender to palpation <WOODROW Whitney - Last Filed: 06/27/20 11:32> Neuro: General: patient oriented x3 <WOODROW Whitney Last Filed: 06/27/20 11:32> Cranial nerves: Yes CN's II-XII intact bilaterally and Yes Bilaterally intact EOM present <WOODROW Whitney - Last Filed: 06/27/20 11:32> DS: Data Data Completed and Pending Completed studies during hospitalization [Text1]: Procedures Detoxification Services for Substance Abuse Treatment (01/25/20) <WOODROW Whitney Last Filed: 06/27/20 11:32> Labs on day of discharge: Laboratory Results - last 24 hr 06/26/20 06/26/20 06/26/20 11:39 11:39 11:39 WBC 8.1 RBC 3.57 L D Hgb 8.8 L D Hct 29.0 L D MCV 81.2 MCH 24.6 L MCHC 30.3 L RDW 24.1 H Plt Count 488 H D MPV 9.5 Immature Gran % (Auto) 0.2 Neut % (Auto) 67.9 Lymph % (Auto) 21.8 [place] % (Auto) 7.9 Eos % (Auto) 1.8 Baso % (Auto) 0.4 Lymph # (Auto) 1.8 [place] # (Auto) 0.6 Eos # (Auto) 0.2 Baso # (Auto) 0.0 Abs Immat Gran (auto) 0.02 Absolute Neuts (auto) 5.5 Absolute Nucleated RBC 0.000 Nucleated RBC % (auto) 0.0 Sodium 136 Potassium 4.6 Chloride 103 Carbon Dioxide 25 Anion Gap 13 BUN 4 L Creatinine 0.62 Estim Creat Clear Calc 124.9 Estimated GFR > 60 Random Glucose 128 H Lactic Acid 2.1 H* Lactic Acid Fup @ 2Hr Calcium 8.2 L D Total Bilirubin < 0.2 AST 14 D ALT 11 Alkaline Phosphatase 75 D Total Protein 5.9 L D Albumin 3.2 L D 06/26/20 14:34 WBC RBC Hgb Hct MCV MCH MCHC RDW Plt Count MPV Immature Gran % (Auto) Neut % (Auto) Lymph % (Auto) [place] % (Auto) Eos % (Auto) Baso % (Auto) Lymph # (Auto) [place] # (Auto) Eos # (Auto) Baso # (Auto) Abs Immat Gran (auto) Absolute Neuts (auto) Absolute Nucleated RBC Nucleated RBC % (auto) Sodium Potassium Chloride Carbon Dioxide Anion Gap BUN Creatinine Estim Creat Clear Calc Estimated GFR Random Glucose Lactic Acid Lactic Acid Fup @ 2Hr 1.3 Calcium Total Bilirubin AST ALT Alkaline Phosphatase Total Protein Albumin <WOODROW Whitney - Last Filed: 06/27/20 11:32> Discharge Plan Discharge Patient Disposition: Home, Self-Care <WOODROW Whitney - Last Filed: 06/27/20 11:32> Referrals: Yuli Michel MD [Physician] - 1 Week (07/03/20 8) <WOODROW Whitney - Last Filed: 06/27/20 11:32> Discharge Medications: New doxycycline monohydrate 100 mg capsule 100 mg PO BID 6 Days Qty: 12 RF: 0 cephalexin 500 mg capsule 500 mg PO QID 6 Days Qty: 24 RF: 0 Continued buprenorphine-naloxone [Suboxone] 8-2 mg Film 3 film BUCCAL DAILY RF: 0 nicotine 21 mg/24 hr Patch 24 Hour 21 mg transdermal DAILY Qty: 7 RF: 0 diphenhydramine HCl [Benadryl] 25 mg Capsule 25 mg PO BEDTIME PRN (Reason: Insomnia) RF: 0 omeprazole 20 mg capsule,delayed release(DR/EC) 20 mg PO DAILY 90 Days Qty: 90 RF: 0 <WOODROW Whitney - Last Filed: 06/27/20 11:32> Discharge Orders: Discharge Order (Routine); Ordered 06/27/20 Ordered By: Allyn Donaldson <WOODROW Whitney - Last Filed: 06/27/20 11:32> Activity on Discharge: As tolerated <WOODROW Whitney - Last Filed: 06/27/20 11:32> As tolerated <Bonnie Joshi MD - Last Filed: 06/27/20 18:50> Stand Alone Forms: Patient Portal Discharge page <WOODROW Whitney - Last Filed: 06/27/20 11:32> Care Plan Goals: See below <WOODROW Whitney - Last Filed: 06/27/20 11:32> Health Concerns: see below <WOODROW Whitney - Last Filed: 06/27/20 11:32> Plan of Treatment: You will be discharged home with oral antibiotics for cellulitis, please take entire course of antibiotics Keep leg elevated when possible to decrease swelling May use Tylenol for pain <WOODROW Whitney - Last Filed: 06/27/20 11:32> Discharge Date/Time: 06/27/20 15:21 <WOODROW Whitney - Last Filed: 06/27/20 11:32>
--- NOTE | 2020-06-27 13:39 | MHC.CM.PN ---
NURSE COMMERCIAL ROOFING ESTIMATOR NOTE ELECTRONIC MEDICAL RECORD REVIEWED ALONG WITH CASE DISCUSSED WITH STAFF NURSE AND ON MULTIPLE DISCIPLINARY ROUNDS MET WITH PATIENT SHE WAS SCHEDULE FOR SURGICAL PROCEDURE BY STUDENT FINANCE ADVISOR SURGEON, BUT PRESENTED TO THE HOSPITAL SHORT STAY SURGERY WITH LEFT LEG CELLULITES , SHE REPORTED THAT FOR THE LAST WEEK IT HAS BEEN INCREASINGLY REDDENED , SWOLLEN AND WITH INCREASING PAIN, , HER SURGERY WAS CANCELLED AND SHE WAS ADMITTED TO THE HOSPITAL FOR IV ABX , MET WITH PATIENT AND SHE REPORTED THAT SHE GUANAKO WITH HER SIGNIFICANT OTHER , SHE IS ACTIVE ,INDEPENDENT IN ALL HER ADS AND MOBILITY WITH OUT ANY VNA OR DME SERVICES . SHE REPORTED THAT SHE HAD A OPIOD ADDICTION IN THE PAST , BUT IS ON SUBOX[employer] THROUGH [employer] AND RECEIVES COUNSELING FROM THEM , SHE REPORTED SHE HAS ADHD AND ANXIETY (IN THE PAST PAST SHE SAW A THERAPIST ) BUT NO LONGER IN INTERESTED IN SEEING ANYONE FOR THIS , SHE HAS COUNSELING THROUGH [employer] [facility], SHE CONTINUES TO SMOKE A PACK OF CIGARETTES AND 1/2 QD PATIENT IS ASKING FOR DISCHARGE TODAY , SHE STATES SHE FEELS LOCKED IN ( SHE IS UNABLE TO GO OUT SIDE FOR A SHORT WHILE ), SHE SPOKE WITH CASE MANAGEMENT, STAFF NURSE, CHILDREN COUNSELOR AND PHYSICIAN , PATIENT WILL BE DISCHARGED HOME ON ORAL ABX DISCHARGE PLAN HOME WITH NO VNA SERVICES PATIENT WILL SELF RESUME HER SUBOXONE WITH [employer], SHE WILL CALL HER PCP FOR POST HOSPITAL DISCHARGE FOLLOW UP SHE WILL BE DISCHARGED HOME ON ORAL ANTIBITOICS. TRANSPORTATION SIGNIFICANT OTHER
== END 2020-06-27 15:21 | disposition home or self-care (01) | DRG 383 ==
LOC: HO.ED 16:34 → HO.EDOVER 17:11 → HO.S3 17:37
PROVIDERS: Nurse Practitioner Family; Admitting Provider Family Medicine; Emergency Provider Emergency Medicine Emergency Medical Services; PCP Internal Medicine; Visit Provider Hospitalist
DX: L03.116 Cellulitis of left lower limb (principal); F11.20 Opioid dependence, uncomplicated; F17.210 Nicotine dependence, cigarettes, uncomplicated; K21.9 Gastro-esophageal reflux disease without esophagitis; D50.0 Iron deficiency anemia secondary to blood loss (chronic); N93.9 Abnormal uterine and vaginal bleeding, unspecified; Z71.6 Tobacco abuse counseling; Z79.899 Other long term (current) drug therapy
CPT/HCPCS: 36415; 80053; 83605; 85025; 87040; 87635; 93971; 96365; 96375; 99285; J0690; J1170; J1650; J1940; J2060; J2270; Q0163

== ENCOUNTER → 2020-07-07 11:20 | Outpatient (BNVA) | payer OTHER, SELFPAY | PROVIDERS: Visit Provider Obstetrics & Gynecology ==

== ENCOUNTER → 2020-08-20 15:56 | Outpatient (BNVA) | payer OTHER, SELFPAY | PROVIDERS: Visit Provider Internal Medicine | DX: L03.116 Cellulitis of left lower limb (principal) | CPT/HCPCS: 99202 ==

== ENCOUNTER 2021-01-16 11:59 | Outpatient (REF) | payer OTHER, SELFPAY ==
[2021-01-16 14:03] LABS: Hematocrit 38.4 % (37-47); Hemoglobin 12.4 g/dl (12.0-16.0)
[2021-01-16 14:14] LABS: Alanine Aminotransferase 17 U/L (0-31); Albumin Level 3.5 g/dL (3.5-5.0); Alkaline Phosphatase 72 U/L (39-117); Anion Gap 11 (12-20); Aspartate Amino Transferase 16 U/L (5-31); Bilirubin Total 0.3 mg/dL (0.0-1.0); Blood Urea Nitrogen 9 mg/dL (9-16); Calcium 9.5 mg/dL (8.4-10.2); Carbon Dioxide 31 mmol/L (22-29); Chloride 103 mmol/L (96-108); Estimated Glomerular Filt Rate > 60; Glucose Random 108 mg/dL (60-115); Iron 26 mcg/dL (30-160); Percent Iron Saturation 8 % (15-50); Potassium 4.7 mmol/L (3.3-5.1); Sodium 140 mmol/L (135-145); Total Iron Binding Capacity 313 mcg/dL (228-428); Total Protein 6.1 g/dL (6.5-8.0); Unsaturated Iron Binding 287 ug/dL
[2021-01-16 14:39] LABS: TSH reflex Free T4 1.27 uIU/mL (0.32-4.0)
[2021-01-16 14:44] LABS: Vitamin B12 293 pg/mL (200-900)
== END 2021-01-16 12:00 | disposition home or self-care (01) ==
LOC: HO.HMGCLDS 11:59
PROVIDERS: PCP Internal Medicine; Visit Provider Internal Medicine
DX: D64.9 Anemia, unspecified (principal); F33.9 Major depressive disorder, recurrent, unspecified
CPT/HCPCS: 36415; 80053; 82607; 83540; 84443; 85014; 85018

== ENCOUNTER 2021-04-22 13:32 | Outpatient (REF) | payer OTHER, SELFPAY ==
[2021-04-22 16:58] LABS: Appearance Urine CLEAR; Color Urine YELLOW; Glucose Urine UA NEG (NEG); Leukocyte Esterase Urine NEG (NEG); Nitrite Urine NEG (NEG); PH 6.5 (5.0-8.0); Specific Gravity - Urine 1.015 (1.005-1.025); Urine Blood NEG (NEG); Urine Ketones NEG (NEG); Urine Protein NEG (NEG-TRACE)
== END 2021-04-22 13:33 | disposition home or self-care (01) ==
LOC: HO.HMGCLNP 13:32
PROVIDERS: Visit Provider Internal Medicine
DX: R82.90 Unspecified abnormal findings in urine (principal)
CPT/HCPCS: 81003

== ENCOUNTER 2021-11-05 11:03 | Outpatient (REF) | payer OTHER, SELFPAY ==
--- NOTE | ~2021-11-05 | XR_ITS ---
EXAMINATION: XR CHEST CLINICAL INFORMATION: Screening for tuberculosis. COMPARISON: None TECHNIQUE: 2 views of the chest were obtained. FINDINGS: Lungs are well-inflated and clear. Trachea is midline in position. No interstitial disease, consolidation or nodules. No pleural effusion or pneumothorax. Cardiac silhouette and pulmonary vessels are normal in size. The mediastinum and martinez have normal contour. The visualized bones and upper abdomen are unremarkable. XR/XR chest 2V IMPRESSION: Normal radiographic examination of the chest. No evidence of acute or chronic cardiopulmonary abnormality.
[2021-11-07 23:52] LABS: TS Negative Control Passed; TS Panel A 0; TS Panel B 2; TS Positive Control Passed; TSpotTB Negative (Negative)
== END 2021-11-05 11:04 | disposition home or self-care (01) ==
LOC: HO.HMGCX 11:03
PROVIDERS: Visit Provider Internal Medicine
DX: Z11.1 Encounter for screening for respiratory tuberculosis (principal)
CPT/HCPCS: 36415; 71046; 86481

== ENCOUNTER 2022-10-26 12:27 | Outpatient (AMB) | payer OTHER, SELFPAY ==
--- NOTE | 2022-10-26 12:30 | A.OFFPC_ITS ---
Vital Signs 10/26/22 12:36 Height 5 ft 5.5 in Weight 159 lb BMI 26.1 BP 120/72 Blood Pressure Location Rt brachial Position Sitting Pulse 74 Pulse Source Pulse Oximeter Pulse Oximetry (%) 97 Oxygen Delivery Method Room Air Intake Visit Reasons: Med follow up Allergies sumatriptan [From IMITREX] Allergy (Unknown, Verified 07/06/22 10:59) INVOLUNTARY SPASMS bupropion [From Wellbutrin] Adverse Reaction (Unknown, Verified 07/06/22 10:59) stomach upset Medication List - Last Reconciled 10/26/22 by Betty Page MD buprenorphine-naloxone 8-2 mg (Suboxone) 3 film buccal DAILY escitalopram oxalate 20 mg PO DAILY 90 days furosemide (Lasix) 20 mg PO DAILY loratadine (Claritin Liqui-Gel) 10 mg PO DAILY 90 days nicotine 21 mg transdermal ONCE 28 days omeprazole 20 mg PO DAILY 90 days venlafaxine 37.5 mg PO DAILY Tobacco use date assessed: 06/04/22 HPI Med follow up HPI Details Patient is a 47-year-old female came in today to talk about difficulty swallowing tablets Patient had a fracture of left tibia in May , 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 She tells me that it is difficult for her to swallow tablets now. We talked about ibuprofen complications. I would recommend for her to take it only if needed I am refer her to Gastroenterology for further evaluation [facility] Medical History Alcohol abuse Chronic GERD Fibroid Opiate dependence Uterine benign neoplasm Surgical History H/O myomectomy Hx of appendectomy Family History Mother Multiple sclerosis Father Substance use disorder Mental health disorder Social History Household Members: Spouse Housing: Apartment Alcohol intake: current Alcohol intake frequency: holidays/special occasions only Alcohol type: hard liquor Patient Tobacco Use Status: Current everyday Tobacco user Cigarettes Per Day: 15 e-Cigarette/Vaping Use: Never Used Second Hand Smoke Exposure: Yes Substance Use Type: Opiates service: No Current occupational status: unemployed Cognitive needs: No Hearing needs: No Vision needs: No Female Reproductive History Menstrual Age of Menarche: 12 Questionnaire Thrive Questionnaire Date Thrive assessed: 01/16/21 OMAIRA-7 AMB Questionnaire OMAIRA-7 Date OMAIRA - 7 assessed: 04/21/21 Source: Developed by Drs. Fidel Gutierrez, Nesha Maciel, Kan Borrego and colleagues, with an educational chris from [employer]. Review of Systems Const Denies chills and Denies fever(s) ENT Denies epistaxis and Denies nasal discharge Card Denies chest pain Resp Denies chest congestion, Denies cough and Denies hemoptysis GI Denies diarrhea and Denies nausea Skin/Breast Denies rash Neuro Reports no additional complaints Psych Reports no additional complaints Endo Reports no additional complaints Physical exam (Primary Care) Vital Signs: Last Vital Signs Pulse 74 10/26/22 12:36 BP 120/72 10/26/22 12:36 Pulse Ox 97 10/26/22 12:36 Oxygen Delivery Method Room Air 10/26/22 12:36 BMI result Body Mass Index 26.1 Tobacco/Smoking Status: Tobacco use Status Tobacco use date assessed 06/04/22 10/26/22 12:36 Patient Tobacco Use Status Current everyday Tobacco 10/26/22 12:36 e-Cigarette/Vaping Use Never Used 10/26/22 12:36 Thrive Assessment: Date of Thrive Assessment Date Thrive assessed 01/16/21 10/26/22 12:36 Const General: cooperative, comfortable and no acute distress Orientation/consciousness: patient oriented x3 HENMT Head: Yes normocephalic Eyes General: appearance normal, both eyes and all related structures Neck Neck: Yes supple Resp Effort & Inspection: normal respiratory effort, no cough and no stridor Cardio Rhythm: regular rhythm Heart sounds: S1 normal heart sound present and S2 normal heart sound present Skin General skin exam: turgor normal Neuro General: patient oriented x3, tone normal and moves all extremities Assessment and Plan Assessment & Plan (1) Difficulty swallowing pills: Code(s): R19.8 - Other specified symptoms and signs involving the digestive system and abdomen Plan Patient is a 47-year-old female came in today to talk about difficulty swallowing tablets Patient had a fracture of left tibia in February , 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 She tells me that it is difficult for her to swallow tablets now. We talked about ibuprofen complications. I would recommend for her to take it only if needed I am refer her to Gastroenterology for further evaluation Orders: Referrals Gastroenterology Referral R19.8 - Other specified symptoms and signs involving the digestive system and abdomen Coding Level of Care Code Est Pt Level 3 (29499) Diagnoses Difficulty swallowing pills R19.8
[2022-10-26 12:36] VITALS: BP 120/72; PULSE 74; O2SAT 97; BMI 26.1
== END 2022-10-26 13:01 | disposition home or self-care (01) ==
PROVIDERS: PCP Internal Medicine; Visit Provider Internal Medicine
DX: R19.8 Other specified symptoms and signs involving the digestive system and abdomen (principal)
CPT/HCPCS: 99213

== ENCOUNTER 2022-10-26 12:55 | Outpatient (REF) | payer OTHER, SELFPAY ==
[2022-10-26 16:13] LABS: MANUAL DIFF FLAG NO
[2022-10-26 16:32] LABS: Basophils Percent Auto 0.4 % (0-2); Eosinophils Absolute Auto 0.1 X10*3/uL (0.0-0.4); Eosinophils Percent Auto 2.3 % (0-4); Hemoglobin 12.7 g/dl (12.0-16.0); Imm Gran Abs Auto 0.02 X10*3/uL (0.00-0.03); Imm Gran Pct Auto 0.4 % (0.0-0.4); Lymphocytes Absolute Auto 1.9 X10*3/uL (1.2-4.9); Lymphocytes Percent Auto 40.7 % (20-40); Mean Corpuscular HGB Conc 33.4 g/dl (31.0-35.0); Mean Corpuscular Hemoglobin 34.3 pg (27.0-33.0); Mean Corpuscular Volume 102.7 fL (80.0-98.0); Mean Platelet Volume 10.4 fL (9.4-12.3); Monocytes Absolute Auto 0.4 X10*3/uL (0.1-1.2); Monocytes Percent Auto 8.2 % (2-11); Neutrophils Absolute Auto 2.3 x10*3/uL (2.0-8.3); Platelet Count 199 X10*3/uL (160-400); Red Cell Distribution Width 21.2 % (11.0-16.0); White Blood Count 4.7 X10*3/uL (4.8-10.8)
[2022-10-26 16:49] LABS: Alanine Aminotransferase 44 U/L (0-31); Albumin Level 3.5 g/dL (3.5-5.0); Alkaline Phosphatase 204 U/L (39-117); Anion Gap 16 (12-20); Aspartate Amino Transferase 85 U/L (5-31); Bilirubin Total 0.7 mg/dL (0.0-1.0); Blood Urea Nitrogen 5 mg/dL (9-16); Calcium 9.5 mg/dL (8.4-10.2); Carbon Dioxide 26 mmol/L (22-29); Chloride 96 mmol/L (96-108); Estimated Glomerular Filt Rate > 60; Glucose Random 102 mg/dL (60-115); Potassium 5.5 mmol/L (3.3-5.1); Sodium 132 mmol/L (135-145)
[2022-10-26 17:07] LABS: TSH reflex Free T4 1.82 uIU/mL (0.32-4.0)
== END 2022-10-26 12:56 | disposition home or self-care (01) ==
LOC: HO.HMGCLDS 12:55
PROVIDERS: PCP Internal Medicine; Visit Provider Internal Medicine
DX: D64.9 Anemia, unspecified (principal); F32.2 Major depressive disorder, single episode, severe without psychotic features; K21.9 Gastro-esophageal reflux disease without esophagitis; G47.9 Sleep disorder, unspecified; Z91.09 Other allergy status, other than to drugs and biological substances; Z72.0 Tobacco use
CPT/HCPCS: 36415; 80053; 84443; 85025

== ENCOUNTER 2023-08-30 08:35 | Outpatient (AMB) | payer OTHER, SELFPAY ==
[2023-08-30 08:38] VITALS: BP 122/80; PULSE 65; O2SAT 96; BMI 25.6
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
== END 2023-08-30 11:24 | disposition home or self-care (01) ==
PROVIDERS: PCP Internal Medicine; Visit Provider Internal Medicine
DX: R07.81 Pleurodynia (principal); V89.2XXA Person injured in unspecified motor-vehicle accident, traffic, initial encounter; Z04.3 Encounter for examination and observation following other accident; K21.9 Gastro-esophageal reflux disease without esophagitis; F17.200 Nicotine dependence, unspecified, uncomplicated; R79.89 Other specified abnormal findings of blood chemistry; E87.5 Hyperkalemia
CPT/HCPCS: 99215

== ENCOUNTER → 2023-10-28 14:09 | Outpatient (AMB) | payer OTHER, SELFPAY ==
[2023-10-28 14:16] VITALS: BP 106/70; PULSE 78; TEMP 36.6; O2SAT 94
--- NOTE | 2023-10-28 14:16 | MHC.OFFWIV ---
Intake Vital Signs 10/28/23 14:16 Height 5 ft 5.5 in BP 106/70 Blood Pressure Location Lt brachial Position Sitting Pulse 78 Pulse Source Pulse Oximeter Temp 97.9 F Temp Source Oral Pulse Oximetry (%) 94 Oxygen Delivery Method Room Air Intake Visit Reasons: EP RT lower Ab pain Intake Note: pt is here for right lower abd pain since yesterday Patient Tobacco Use Status: Current everyday Tobacco user Allergies sumatriptan [From IMITREX] Allergy (Unknown, Verified 10/28/23 14:21) INVOLUNTARY SPASMS bupropion [From Wellbutrin] Adverse Reaction (Unknown, Verified 10/28/23 14:21) stomach upset Do you need a note to return to daycare/school/sports/work: No HPI EP RT lower Ab pain HPI Details This note is constructed using voice recognition software. While every effort has been made to ensure accuracy, manager metrology errors may have been included. 48 y.o. female presents with right sided abdomen pain, onset yesterday. She is sexually active with women only, is perimenopausal. Notes she is a smoker, and former heavy ETOH user. Has been alcohol free for 18 weeks. Denies changes in bowel or bladder function, vaginal discharge, back pain, fever, change in appetite. Notes last bm this am, but does require coffee to move bowels every day. No specific injury to the area. She has a history of an appendectomy approximately 15 years ago. [facility] Medical History Chronic GERD Uterine benign neoplasm Alcohol abuse Opiate dependence Fibroid Surgical History H/O myomectomy Hx of appendectomy Family History Mother Multiple sclerosis Father Substance use disorder Mental health disorder Social History Household Members: Spouse Housing: Apartment Alcohol intake: current Alcohol intake frequency: holidays/special occasions only Alcohol type: hard liquor Comment: SLEEEPING Patient Tobacco Use Status: Current everyday Tobacco user Cigarettes Per Day: 15 e-Cigarette/Vaping Use: Never Used Second Hand Smoke Exposure: Yes Substance Use Type: Opiates service: No Current occupational status: unemployed Cognitive needs: No Hearing needs: No Vision needs: No Female Reproductive History Menstrual Age of Menarche: 12 Review of Systems Const All systems reviewed & are unremarkable except as noted in HPI and below Physical Exam Vital Signs: Last Vital Signs Temp 97.9 F 10/28/23 14:16 Pulse 78 10/28/23 14:16 BP 106/70 10/28/23 14:16 Pulse Ox 94 10/28/23 14:16 Oxygen Delivery Method Room Air 10/28/23 14:16 Const General: cooperative, healthy appearing, comfortable, no acute distress and alert Orientation/consciousness: patient oriented x3 Limitations: no limitations Resp Effort & Inspection: normal respiratory effort and able to speak in complete sentences Auscultation: clear to auscultation bilaterally Cardio Jugular venous distension: no JVD Palpation: normal PMI Rate: regular rate Heart sounds: S1 normal heart sound present, S2 normal heart sound present, no click, no gallops, no murmurs and no rubs GI Inspection: Yes normal to inspection Palpation (GI): Soft to palpation, not firm, Tenderness to palpation present (GI) (Right abdomen approximately 4 cm from umbilicus.), no guarding, not rigid, No hepatosplenomegaly present and Hernia present ventral (Right abdomen approximately 4 cm from umbilicus, and at site of tenderness. ) Percussion: Yes normal to percussion and No Fluid wave present Auscultation: Hypoactive bowel sounds present Rectal Exam - Female: deferred Skin General skin exam: no rashes or lesions noted, elasticity normal and turgor normal Neuro General: patient oriented x3 Psych Appearance: grossly normal Mental Status: mental status grossly normal Speech and movement: Normal speech and movement present Affect: normal affect Assessment & Plan Assessment & Plan (1) Constipation: Code(s): K59.00 - Constipation, unspecified Qualifiers: Constipation type: unspecified constipation type Qualified Code(s): K59.00 - Constipation, unspecified Plan: Advised to increase dietary or supplemental fiber, prescription sent for stool softeners to facilitate BM. Advised follow up with worsening symptoms or failure to improve (2) Ventral hernia: Code(s): K43.9 - Ventral hernia without obstruction or gangrene Qualifiers: Obstruction and gangrene presence: without obstruction or gangrene Qualified Code(s): K43.9 - Ventral hernia without obstruction or gangrene Plan: Advised use of NSAIDs for pain management, given the lack of gangrene or strangulation, advised patient to use supportive measures, improve constipation med that is, and follow up with PCP with worsening symptoms or failure to resolve. Discussed potential that patient may benefit from surgical consult, however at this time I would not recommend it based on presentation today. Additional abdominal pathology unlikely given history and physical examination including ectopic appendix, diverticulitis, obstruction. Plan See above for full details and plan. Medications: New docusate sodium 100 mg PO DAILY 7 days PRN 7 caps 0RF constipation ibuprofen 600 mg PO Q8H 7 days PRN 21 tabs 0RF pain Coding Level of Care Code Est Pt Level 4 (92037) Diagnoses Constipation, unspecified constipation type K59.00 Constipation type: unspecified constipation type Ventral hernia without obstruction or gangrene K43.9 Obstruction and gangrene presence: without obstruction or gangrene
== END ==
PROVIDERS: PCP Internal Medicine; Visit Provider Registered Nurse
DX: K59.00 Constipation, unspecified (principal); K43.9 Ventral hernia without obstruction or gangrene
CPT/HCPCS: 99214

== ENCOUNTER 2023-11-22 08:31 | Outpatient (AMB) | payer OTHER, SELFPAY ==
--- NOTE | 2023-11-22 08:33 | AM.OFFWIN_ITS ---
Intake Vital Signs 11/22/23 08:34 Height 5 ft 5.5 in Weight 159 lb BMI 26.1 BP 112/78 Blood Pressure Location Rt brachial Position Sitting Pulse 67 Pulse Source Pulse Oximeter Temp 97.6 F Temp Source Temporal Artery Scan Pulse Oximetry (%) 98 Oxygen Delivery Method Room Air Intake Visit Reasons: EP ?ear infection 1 week Intake Note: pt c/o RT ear pain x 1 week. Patient Tobacco Use Status: Current everyday Tobacco user Allergies sumatriptan [From IMITREX] Allergy (Unknown, Verified 11/22/23 08:33) INVOLUNTARY SPASMS bupropion [From Wellbutrin] Adverse Reaction (Unknown, Verified 11/22/23 08:33) stomach upset Medication List - Last Reconciled 11/22/23 by Lyle Tabares MD buprenorphine-naloxone 8-2 mg (Suboxone) 3 film buccal DAILY clonidine HCl 0.2 mg PO TID docusate sodium 100 mg PO DAILY PRN 7 days folic acid 1 mg PO DAILY ibuprofen 600 mg PO Q8H PRN 7 days omeprazole 20 mg PO DAILY 90 days thiamine HCl (vitamin B1) 100 mg PO DAILY venlafaxine ER 75 mg PO DAILY Do you need a note to return to daycare/school/sports/work: No HPI EP ?ear infection 1 week HPI Details 48-year-old female presents to the [facility] for a sick visit. Patient reporting symptoms of right ear pain. Symptoms present for the past few days. Pain is throbbing in nature. Has been in the pool recently. Other symptoms of slight nasal congestion and postnasal drip. [facility] Medical History Chronic GERD Uterine benign neoplasm Alcohol abuse Opiate dependence Fibroid Surgical History H/O myomectomy Hx of appendectomy Family History Mother Multiple sclerosis Father Substance use disorder Mental health disorder Social History Household Members: Spouse Housing: Apartment Alcohol intake: current Alcohol intake frequency: holidays/special occasions only Alcohol type: hard liquor Comment: SLEEEPING Patient Tobacco Use Status: Current everyday Tobacco user Cigarettes Per Day: 15 e-Cigarette/Vaping Use: Never Used Second Hand Smoke Exposure: Yes Substance Use Type: Opiates service: No Current occupational status: unemployed Cognitive needs: No Hearing needs: No Vision needs: No Female Reproductive History Menstrual Age of Menarche: 12 Physical Exam Vital Signs: Last Vital Signs Temp 97.6 F 11/22/23 08:34 Pulse 67 11/22/23 08:34 BP 112/78 11/22/23 08:34 Pulse Ox 98 11/22/23 08:34 Oxygen Delivery Method Room Air 11/22/23 08:34 BMI result Body Mass Index 26.1 Const General: cooperative and healthy appearing Nutritional Appearance: well nourished Orientation/consciousness: patient oriented x3 Limitations: no limitations HEENT Other: Right ear: Tympanic membrane is normal. Ear canals do not appear congested. Head: Yes normal to inspection Eyes General: appearance normal, both eyes and all related structures Neck Neck: Yes normal visual inspection Chest Chest palpation & inspection: normal palpation of entire chest wall Resp Effort & Inspection: normal respiratory effort Neuro General: patient oriented x3 Assessment & Plan Assessment & Plan (1) Right otitis media: Code(s): H66.91 - Otitis media, unspecified, right ear Plan Antibiotics ordered. Increase fluid intake. Tylenol for aches and pains. If symptoms worsen, follow-up here for a recheck. Coding Level of Care Code Est Pt Level 3 (05236) Diagnoses Right otitis media H66.91
[2023-11-22 08:34] VITALS: BP 112/78; PULSE 67; TEMP 36.4; O2SAT 98; BMI 26.1
== END 2023-11-22 09:01 | disposition home or self-care (01) ==
PROVIDERS: PCP Internal Medicine; Visit Provider Internal Medicine
DX: H66.91 Otitis media, unspecified, right ear (principal)
CPT/HCPCS: 99213

== ENCOUNTER → 2024-03-20 13:25 | Outpatient (BNVA) | payer OTHER, SELFPAY | PROVIDERS: PCP Internal Medicine; Visit Provider Internal Medicine ==

== ENCOUNTER 2024-03-27 15:14 | Outpatient (AMB) | payer OTHER, SELFPAY ==
[2024-03-27 15:16] VITALS: BP 122/80; PULSE 97; O2SAT 98; BMI 26.3
--- NOTE | 2024-03-27 15:16 | A.OFFPC_ITS ---
Vital Signs 03/27/24 15:16 Height 5 ft 5.5 in Weight 160 lb 4 oz BMI 26.3 BP 122/80 Blood Pressure Location Lt brachial Position Sitting Pulse 97 Pulse Source Pulse Oximeter Pulse Oximetry (%) 98 Oxygen Delivery Method Room Air Intake Visit Reasons: med follow up Allergies sumatriptan [From IMITREX] Allergy (Unknown, Verified 03/27/24 15:16) INVOLUNTARY SPASMS bupropion [From Wellbutrin] Adverse Reaction (Unknown, Verified 03/27/24 15:16) stomach upset Medication List - Last Reconciled 03/27/24 by Betty Page MD buprenorphine-naloxone 8-2 mg (Suboxone) 3 film buccal DAILY clonidine HCl 0.2 mg PO TID docusate sodium 100 mg PO DAILY PRN 7 days folic acid 1 mg PO DAILY ibuprofen 600 mg PO Q8H PRN 7 days meloxicam 15 mg PO DAILY omeprazole 20 mg PO DAILY 90 days thiamine HCl (vitamin B1) 100 mg PO DAILY venlafaxine ER 75 mg PO DAILY Tobacco use date assessed: 03/27/24 Dental Screening Dental Screen Date: 03/27/24 Did you have a dental visit in the last 12 months?: Yes Did you have a dental problem in the last 6 months where you did not have access to dental care?: No Was dental information given to patient?: Patient has dentist HPI med follow up HPI Details Chief Complaint Referral for disability evaluation and examination of right leg post-hardware insertion. Assessment and Plan 48-year-old female with a history of sub stance use disorder and postoperative right leg discomfort presenting for a referral for disability evaluation and assessment of current health issues. The patient reports episodes of alcohol and marijuana misuse following personal loss of her dog of 17 years. She reports pain in her right leg patient has a history of hardware in that leg placed May of this year after having a fracture secondary to fall, and also complaining of gastrointestinal discomfort left lower quadrant for the past 2 days. Previous labs shows liver function abnormalities, electrolyte imbalance. She is requesting her medical record to be faxed over for disability evaluation 1. Substance Use Disorder The patient had a history of alcohol misuse exacerbated by the emotional distress of losing a pet. The condition was managed with hospitalization and therapy. Continues to be evaluated by psychiatrist and therapist; ongoing support was recommended. 2. Liver Function Abnormalities Conduct liver function tests as previous tests indicated elevated enzymes possibly linked to substance use. Continuing abstinence and follow-up labs to ensure safe liver function. 3. Right lower leg Discomfort Post-Surge ry Patient reports discomfort and mechanical symptoms with right leg hardware post- accident. She is scheduled for hardware removal. Orthopedic follow-up is planned, with ongoing pain management. 4. Depression History of mood disorder influenced by recent life events discussed with the mental health team. Current treatment includes medication management by psychiatrist Dr. Stephy Veliz. 5. Electrolyte Imbalance Past labs indicated hyperkalemia and hyponatremia, presumed secondary to prior alcohol use. Laboratory reassessment ordered to ensure values normalize post- abstinence. 6. Diverticulitis Symptoms suggestive of diverticulitis with localized abdominal pain. Antibiotic course prescribed and a recommendation for a colonoscopy as follow-up with consideration of diverticular disease. Diagnostic results - Labs: Previous labs indicated elevated liver enzymes and electrolyte imbalance. - Tests and Diagnostics: Past colonoscop y mentioned but not scheduled; symptomatic confirmation of right-sided abdominal pain leading to a tentative diagnosis of diverticulitis. Problem List - Substance Use Disorder - right lower leg Discomfort Post-Surger y - Depression - Liver Function Abnormalities - Electrolyte Imbalance - Diverticulitis Health Maintenance - Encourage continued abstinence and psy chiatric care. - Discussed importance of regular follow -up for ongoing conditions, notably liver and mental health. - Recommended probiotic therapy for eleuterio elkins. - Scheduled repeat lab testing to monito r liver function and electrolytes. [place] of Care Engagement with Dr. Becker (orthopedic), Dr. Stephy Veliz (psychiatrist), and continued interaction with applicable health administration for disability documentation. Patient Instructions - Attend scheduled removal of hardware a nd follow up with Dr. Becker. - Complete laboratory tests as scheduled . - Continue current psychiatric medicatio n regimen and therapy appointments. - Return for colonoscopy and continue pr obiotic for digestive health. - Collect prescribed antibiotics from [facility]. - Avoid alcohol to maintain liver health and prevent electrolyte imbalances. - Monitor symptoms and report any acute changes, especially in pain or mood. [facility] Medical History Chronic GERD Uterine benign neoplasm Alcohol abuse Opiate dependence Fibroid Surgical History H/O myomectomy Hx of appendectomy Family History Mother Multiple sclerosis Father Substance use disorder Mental health disorder Social History Household Members: Spouse Housing: Apartment Alcohol intake: current Alcohol intake frequency: holidays/special occasions only Alcohol type: hard liquor Comment: SLEEEPING Patient Tobacco Use Status: Current everyday Tobacco user Cigarettes Per Day: 15 e-Cigarette/Vaping Use: Never Used Second Hand Smoke Exposure: Yes Substance Use Type: Opiates service: No Current occupational status: unemployed Cognitive needs: No Hearing needs: No Vision needs: No Female Reproductive History Menstrual Age of Menarche: 12 Questionnaire PHQ-9 Over the last 2 weeks, how often have you been bothered by any of the following problems? 1. Little interest or pleasure in doing things: more than half the days 2. Feeling down, depressed, or hopeless: not at all 3. Trouble falling or staying asleep, or sleeping too much: more than half the days 4. Feeling tired or having little energy: not at all 5. Poor appetite or overeating: not at all 6. Feeling bad about yourself - or that you are a failure or have let yourself or your family down: not at all 7. Trouble concentrating on things, such as reading the newspaper or watching television: more than half the days 8. Moving or speaking so slowly that other people could have noticed. Or the opposite - being so fidgety or restless that you have been moving around a lot more than usual: more than half the days 9. Thoughts that you would be better off or of hurting yourself in some way: not at all Total score: 8 Source: Developed by Drs. Fidel Gutierrez, Nesha Maciel, Kan Borrego and colleagues, with an educational chris from [employer]. Thrive Questionnaire Date Thrive assessed: 08/30/23 I am a: Patient What is your living situation today?: I choose not to answer this question Within the past 12 months, did the food you bought not last and you didn't have the money to get more?: Often true Within the past 12 months, did you worry whether your food would run out before you got money to buy more?: Often true Do you have trouble paying for medicines?: No Do you have trouble getting transportation to medical appointments?: No Do you have trouble paying your heating and electricity bill?: Yes Do you have trouble taking care of your child, family member or friend?: No Do you have trouble with day-to-day activities such as bathing, preparing meals, shopping, managing finances, etc.?: Yes Are you currently unemployed and looking for a job?: Yes Are you interested in more education?: No Please select the resources that you would like help with: Housing/Penitentiary, Food, Utilities and Daily support Currently or been in a relationship where the following occur: No concerns reported THRIVE Score: 3 AUDIT C Alcohol Use Questionnaire (AUDIT-C) 1. How often do you have a drink containing alcohol?: Never Total Score: 0 OMAIRA-7 AMB Questionnaire OMAIRA-7 Date OMAIRA - 7 assessed: 08/30/23 Feeling nervous, anxious, or on edge: 2 = More than half the days Not being able to stop or control worryin = More than half the days Worrying too much about different things: 2 = More than half the days Trouble relaxin = More than half the days Being so restless that it is hard to sit still: 2 = More than half the days Becoming easily annoyed or irritable: 2 = More than half the days Feeling afraid as if something awful might happen: 0 = Not at all Total OMAIRA-7 score (0-4 normal; 5-9 mild; 10-14 moderate; 15-21 severe): 12 Source: Developed by Drs. Fidel Gutierrez, Nesha Maciel, Kan Borrego and colleagues, with an educational chris from [employer]. Review of Systems Const Denies chills and Denies fever(s) ENT Denies epistaxis and Denies nasal discharge Card Denies chest pain Resp Denies chest congestion, Denies cough and Denies hemoptysis GI Denies diarrhea and Denies nausea Skin/Breast Denies rash Neuro Reports no additional complaints Psych Reports no additional complaints Endo Reports no additional complaints Physical exam (Primary Care) Vital Signs: Last Vital Signs Pulse 97 03/27/24 15:16 BP 122/80 03/27/24 15:16 Pulse Ox 98 03/27/24 15:16 Oxygen Delivery Method Room Air 03/27/24 15:16 BMI result Body Mass Index 26.3 Tobacco/Smoking Status: Tobacco use Status Tobacco use date assessed 03/27/24 03/27/24 15:17 Patient Tobacco Use Status Current everyday Tobacco 03/27/24 15:17 e-Cigarette/Vaping Use Never Used 03/27/24 15:17 PHQ-9: PHQ-9 Score PHQ-9: Total score 8 03/27/24 15:49 Thrive Assessment: Date of Thrive Assessment Date Thrive assessed 08/30/23 03/27/24 15:17 Currently or been in a relationship where the following occur: No concerns reported Const General: cooperative, comfortable and no acute distress Orientation/consciousness: patient oriented x3 HENMT Head: Yes normocephalic Eyes General: appearance normal, both eyes and all related structures Neck Neck: Yes supple Resp Effort & Inspection: normal respiratory effort, no cough and no stridor Cardio Rhythm: regular rhythm Heart sounds: S1 normal heart sound present and S2 normal heart sound present Skin General skin exam: turgor normal Neuro General: patient oriented x3, tone normal and moves all extremities Extrem Other: No pain with palpation of right lower extremity or ankle, range of motion intact Right lower extremity: no edema Left lower extremity: no edema Coding Level of Care Code Est Pt Level 5 (52180) Complex EM visit Add On G2211 Diagnoses LLQ abdominal pain R10.32 Electrolyte abnormality E87.8 LFT elevation R79.89 Colon cancer screening Z12.11 Homeless Z59.00 Pain of right lower extremity M79.604 Grieving F43.21 Assessment & Plan Assessment & Plan (1) LLQ abdominal pain: Code(s): R10.32 - Left lower quadrant pain Category: Medical (2) Electrolyte abnormality: Code(s): E87.8 - Other disorders of electrolyte and fluid balance, not elsewhere classified Category: Medical (3) LFT elevation: Code(s): R79.89 - Other specified abnormal findings of blood chemistry Category: Medical (4) Colon cancer screening: Code(s): Z12.11 - Encounter for screening for malignant neoplasm of colon Category: Medical (5) Homeless: Code(s): Z59.00 - Homelessness unspecified Category: Social Hx (6) Pain of right lower extremity: Code(s): M79.604 - Pain in right leg Category: Medical (7) Grieving: Code(s): F43.21 - Adjustment disorder with depressed mood Category: Medical Plan Chief Complaint Referral for disability evaluation and examination of right leg post-hardware insertion. Assessment and Plan 48-year-old female with a history of substance use disorder and postoperative right leg discomfort presenting for a referral for disability evaluation and assessment of current health issues. The patient reports episodes of alcohol and marijuana misuse following personal loss of her dog of 17 years. She reports pain in her right leg patient has a history of hardware in that leg placed May of this year after having a fracture secondary to fall, and also complaining of gastrointestinal discomfort left lower quadrant for the past 2 days. Previous labs shows liver function abnormalities, electrolyte imbalance. She is requesting her medical record to be faxed over for disability evaluation 1. Substance Use Disorder The patient had a history of alcohol misuse exacerbated by the emotional distress of losing a pet. The condition was managed with hospitalization and therapy. Continues to be evaluated by psychiatrist and therapist; ongoing support was recommended. 2. Liver Function Abnormalities Conduct liver function tests as previous tests indicated elevated enzymes possibly linked to substance use. Continuing abstinence and follow-up labs to ensure safe liver function. 3. Right lower leg Discomfort Post-Surgery Patient reports discomfort and mechanical symptoms with right leg hardware post- accident. She is scheduled for hardware removal. Orthopedic follow-up is planned, with ongoing pain management. 4. Depression History of mood disorder influenced by recent life events discussed with the mental health team. Current treatment includes medication management by psychiatrist Dr. Stephy Veliz. 5. Electrolyte Imbalance Past labs indicated hyperkalemia and hyponatremia, presumed secondary to prior alcohol use. Laboratory reassessment ordered to ensure values normalize post- abstinence. 6. Diverticulitis Symptoms suggestive of diverticulitis with localized abdominal pain. Antibiotic course prescribed and a recommendation for a colonoscopy as follow-up with consideration of diverticular disease. Diagnostic results - Labs: Previous labs indicated elevated liver enzymes and electrolyte imbalance. - Tests and Diagnostics: Past colonoscopy mentioned but not scheduled; symptomatic confirmation of right-sided abdominal pain leading to a tentative diagnosis of diverticulitis. Problem List - Substance Use Disorder - right lower leg Discomfort Post-Surgery - Depression - Liver Function Abnormalities - Electrolyte Imbalance - Diverticulitis Health Maintenance - Encourage continued abstinence and psychiatric care. - Discussed importance of regular follow-up for ongoing conditions, notably live r and mental health. - Recommended probiotic therapy for bowel regularity. - Scheduled repeat lab testing to monitor liver function and electrolytes. [place] of Care Engagement with Dr. Becker (orthopedic), Dr. Stephy Veliz (psychiatrist), and continued interaction with [facility] for disability documentation. Patient Instructions - Attend scheduled removal of hardware and follow up with Dr. Becker. - Complete laboratory tests as scheduled. - Continue current psychiatric medication regimen and therapy appointments. - Return for colonoscopy and continue probiotic for digestive health. - Collect prescribed antibiotics from the pharmacy. - Avoid alcohol to maintain liver health and prevent electrolyte imbalances. - Monitor symptoms and report any acute changes, especially in pain or mood. 45 minutes spent in care of this patient Orders: Orders Comprehensive Met. Panel Today E87.8 - Other disorders of electrolyte and fluid balance, not elsewhere classified, R10.32 - Left lower quadrant pain, R79.89 - Other specified abnormal findings of blood chemistry TSH reflex Free T4 Today E87.8 - Other disorders of electrolyte and fluid balance, not elsewhere classified, R10.32 - Left lower quadrant pain, R79.89 - Other specified abnormal findings of blood chemistry Vitamin B12 Today E87.8 - Other disorders of electrolyte and fluid balance, not elsewhere classified, R10.32 - Left lower quadrant pain, R79.89 - Other specified abnormal findings of blood chemistry Vitamin D 25-OH (D2 and D3) Today E87.8 - Other disorders of electrolyte and fluid balance, not elsewhere classified, R10.32 - Left lower quadrant pain, R79.89 - Other specified abnormal findings of blood chemistry LDL Cholesterol Direct Today E87.8 - Other disorders of electrolyte and fluid balance, not elsewhere classified, R10.32 - Left lower quadrant pain, R79.89 - Other specified abnormal findings of blood chemistry Referrals Gastroenterology Referral Z12.11 - Encounter for screening for malignant neoplasm of colon Medications: New metronidazole 500 mg PO Q8H 7 days 21 tabs 0RF levofloxacin 500 mg PO DAILY 7 days 7 tabs 0RF Refilled omeprazole 20 mg PO DAILY 90 days 90 caps 1RF K21.9 - Gastro-esophageal reflux disease without esophagitis
== END 2024-03-27 16:26 | disposition home or self-care (01) ==
PROVIDERS: PCP Internal Medicine; Visit Provider Internal Medicine
DX: R10.32 Left lower quadrant pain (principal); E87.8 Other disorders of electrolyte and fluid balance, not elsewhere classified; Z12.11 Encounter for screening for malignant neoplasm of colon; Z59.00 Homelessness unspecified; M79.604 Pain in right leg; F43.21 Adjustment disorder with depressed mood

== ENCOUNTER → 2024-03-27 15:14 | Outpatient (BNVA) | payer OTHER, SELFPAY | PROVIDERS: PCP Internal Medicine; Visit Provider Internal Medicine | DX: R10.32 Left lower quadrant pain (principal); E87.8 Other disorders of electrolyte and fluid balance, not elsewhere classified; R79.89 Other specified abnormal findings of blood chemistry; M79.604 Pain in right leg; F43.21 Adjustment disorder with depressed mood; Z59.00 Homelessness unspecified | CPT/HCPCS: 96127; 99212 ==

== ENCOUNTER 2024-08-16 08:24 | Outpatient (AMB) | payer OTHER, SELFPAY ==
--- OUTSIDE RECORDS SUMMARY | 2024-08-16 08:35 | XMS_ITS | Clinical Summary ---
Author Organization [facility] Address [address] [place] [address] Care Team Providers Care Installation Tech Name Role Phone Unavailable Primary Care Provider Unavailabl e Surgical History Surgery Date Site/Laterality Comments TOTAL KNEE ARTHROPLASTY PROCEDURE: ID ARTHRP KNE CONDYLE&PLATU MEDIAL&LAT COMPARTMENTS; COMMENT: left knee 1994 Family History Medical History Relation Name Comments Asthma Mother Depression Mother Relation Name Status Comments Brother Alive Father Alive Mother Alive Sister Alive Social History Tobacco Use Types Packs/Day Years Used Date Smoking Tobacco: Every Day Cigarettes Alcohol Use Standard Drinks/Week Comments Yes 0 (1 standard drink = 0.6 oz pur e alcohol) Comments Unknown Sex and Gender Information Value Date Recorded Sex Assigned at Not on file Legal Sex Female 2:35 AM EST Gender Identity Not on file Sexual Orientation Not on file Obstetrics History Plan of Treatment Health Maintenance Due Date Last Done Comments Breast Cancer Screening 1974 DTaP,Tdap,and Td Vaccines (1 - Tdap) 1993 Hepatitis B Vaccines (1 of 3 - 19+ 3-dose series) 1993 Cervical Cancer Screening: P ap Smear 09/19/1995 COVID-19 Vaccine ( - 2023-2 5 season) 2023 Influenza Vaccine (Season Ended) 2024 HIB Vaccines Aged Out No longer eligi ble based on patient's age to complete this topic HPV Vaccines Aged Out No longer eligi ble based on patient's age to complete this topic Hepatitis A Vaccines Aged Out No long er eligible based on patient's age to complete this topic IPV Vaccines Aged Out No longer eligi ble based on patient's age to complete this topic MMR Vaccines Aged Out No longer eligi ble based on patient's age to complete this topic Meningococcal ACWY Vaccine Aged Out N o longer eligible based on patient's age to complete this topic Meningococcal B Vaccine Aged Out No l onger eligible based on patient's age to complete this topic Pneumococcal Vaccine: Pediat rics (0 to 5 Years) and At-Risk Patients (6 to 64 Years) Aged Out No longer eligible b ased on patient's age to complete this topic RSV Immunization Patients Un bessie 20 months Aged Out No longer eligible b ased on patient's age to complete this topic Varicella Vaccines Aged Out No longer eligible based on patient's age to complete this topic
--- NOTE | 2024-08-16 08:41 | MHC.PC.OV ---
Intake Visit Reasons: Heavy Periods/ Feeling tired Allergies sumatriptan [From IMITREX] Allergy (Unknown, Verified 08/16/24 08:42) INVOLUNTARY SPASMS bupropion [From Wellbutrin] Adverse Reaction (Unknown, Verified 08/16/24 08:42) stomach upset Medication List - Last Reconciled 08/16/24 by Betty Page MD buprenorphine-naloxone 8-2 mg (Suboxone) 3 film buccal DAILY clonidine HCl 0.2 mg PO TID omeprazole 20 mg PO DAILY 90 days venlafaxine ER 75 mg PO DAILY venlafaxine ER 37.5 mg PO DAILY Tobacco use date assessed: 08/16/24 Dental Screening Dental Screen Date: 08/16/24 Did you have a dental visit in the last 12 months?: Yes Did you have a dental problem in the last 6 months where you did not have access to dental care?: No Was dental information given to patient?: Patient has dentist HPI Heavy Periods/ Feeling tired HPI Details History - The patient is a 48-year-old female presenting with menorrhagia. - She reports menstruation commenced 11 days ago after an 8-month hiatus. - Initially, bleeding decreased on the third day, suggesting cessation; however, it intensified that night. - The menorrhagia is characterized by significant bleeding, described as causing fatigue and weakness. - Previous medical history includes a scheduled surgery for fibroid removal that was postponed due to the fibroid's proximity to the bowel. - The fibroid, initially deemed non-bothersome, has become problematic secondary to the recent menorrhagia. Problem List - Menorrhagia - Fibroid Uterus Patient Instructions - Proceed to have lab tests, including hemoglobin and iron levels, before 3:30 PM if possible. - Schedule and attend an appointment with the OBGYN, Dr. Zimmerman, for further evaluation. - Follow up with the clinic after the OBGYN consultation for further care. Review of Systems - General: No fever no chills - Neurological: No headaches no dizziness - Ear nose throat: No sore throat no hearing difficulty no ear pain - Cardiovascular: No syncope, no chest pain, no palpitations - Gastrointestinal: No nausea vomiting or diarrhea PFSH Medical History Chronic GERD Uterine benign neoplasm Alcohol abuse Opiate dependence Fibroid Surgical History H/O myomectomy Hx of appendectomy Family History Mother Multiple sclerosis Father Substance use disorder Mental health disorder Social History Household Members: Spouse Housing: Apartment Alcohol intake: current Alcohol intake frequency: holidays/special occasions only Alcohol type: hard liquor Comment: SLEEEPING Patient Tobacco Use Status: Current everyday Tobacco user Cigarettes Per Day: 15 e-Cigarette/Vaping Use: Never Used Second Hand Smoke Exposure: Yes Substance Use Type: Opiates service: No Current occupational status: unemployed Cognitive needs: No Hearing needs: No Vision needs: No Female Reproductive History Menstrual Age of Menarche: 12 Questionnaire Thrive Questionnaire Date Thrive assessed: 08/30/23 AUDIT C Alcohol Use Questionnaire (AUDIT-C) 1. How often do you have a drink containing alcohol?: Never 3. How often do you have six or more drinks on one occasion?: Never Total Score: 0 Score Reviewed/Action Taken: Yes OMAIRA-7 AMB Questionnaire OMAIRA-7 Date OMAIRA - 7 assessed: 08/30/23 Source: Developed by Drs. Fidel Gutierrez, Nesha Maciel, Kan Borrego and colleagues, with an educational chris from [employer] [address] Physical exam (Primary Care) Tobacco/Smoking Status: Tobacco use Status Tobacco use date assessed 08/16/24 08/16/24 08:43 Patient Tobacco Use Status Current everyday Tobacco 08/16/24 08:41 e-Cigarette/Vaping Use Never Used 08/16/24 08:41 Thrive Assessment: Date of Thrive Assessment Date Thrive assessed 08/30/23 08/16/24 08:41 Telehealth Telehealth Telehealth Platform: [facility] Location of provider rendering services: practice address Location of patient: address on file Patient Identification confirmed using: Name, : Yes Telehealth method: voice only Patient verbally consented to treatment: Yes Patient verbally consented to billing insurance company: Yes Patient informed of any privacy concerns related to visit: Yes Minutes spent on Phone/Video with Pt.: 12 Coding Level of Care Code Tele Est Pt Level 3 (05841) Diagnoses Excessive bleeding in premenopausal period N92.4 Menorrhagia type: premenopausal Weakness R53.1 Other fatigue R53.83 Fatigue type: other Assessment & Plan Assessment & Plan (1) Heavy periods: Code(s): N92.0 - Excessive and frequent menstruation with regular cycle Category: Medical Qualifiers: Menorrhagia type: premenopausal Qualified Code(s): N92.4 - Excessive bleeding in the premenopausal period (2) Weakness: Code(s): R53.1 - Weakness Category: Medical (3) Fatigue: Code(s): R53.83 - Other fatigue Category: Medical Qualifiers: Fatigue type: other Qualified Code(s): R53.83 - Other fatigue Plan History - The patient is a 48-year-old female presenting with menorrhagia. - She reports menstruation commenced 11 days ago after an 8-month hiatus. - Initially, bleeding decreased on the third day, suggesting cessation; however, it intensified that night. - The menorrhagia is characterized by significant bleeding, described as causing fatigue and weakness. - Previous medical history includes a scheduled surgery for fibroid removal that was postponed due to the fibroid's proximity to the bowel. - The fibroid, initially deemed non-bothersome, has become problematic secondary to the recent menorrhagia. Problem List - Menorrhagia - Fibroid Uterus Patient Instructions - Proceed to have lab tests, including hemoglobin and iron levels, before 3:30 PM if possible. - Schedule and attend an appointment with the OBGYN, Dr. Zimmerman, for further evaluation. - Follow up with the clinic after the OBGYN consultation for further care. Orders: Orders Hemoglobin A1c Today N92.0 - Excessive and frequent menstruation with regular cycle, R53.1 - Weakness, R53.83 - Other fatigue Follicle Stimulating Hormone Today N92.0 - Excessive and frequent menstruation with regular cycle, R53.1 - Weakness Ferritin Today N92.0 - Excessive and frequent menstruation with regular cycle, R53.1 - Weakness, R53.83 - Other fatigue Complete Blood Count Auto Diff Today N92.0 - Excessive and frequent menstruation with regular cycle, R53.1 - Weakness, R53.83 - Other fatigue Lutenizing Hormone Today N92.0 - Excessive and frequent menstruation with regular cycle, R53.1 - Weakness Referrals [facility] Referral N92.0 - Excessive and frequent menstruation with regular cycle, R53.1 - Weakness, R53.83 - Other fatigue
== END 2024-08-16 09:06 | disposition home or self-care (01) ==
LOC: HO.HMCC 08:24
PROVIDERS: PCP Internal Medicine; Visit Provider Internal Medicine
DX: N92.4 Excessive bleeding in the premenopausal period (principal); R53.1 Weakness; R53.83 Other fatigue

== ENCOUNTER → 2024-08-16 08:24 | Outpatient (BNVA) | payer OTHER, SELFPAY | PROVIDERS: PCP Internal Medicine; Visit Provider Internal Medicine ==

== ENCOUNTER 2024-09-15 13:14 | Outpatient (REF) | payer OTHER, SELFPAY ==
--- OUTSIDE RECORDS SUMMARY | 2024-09-15 13:15 | XMS_ITS | Clinical Summary ---
Author Organization [facility] Address [address] [place] [address] Care Team Providers Care Mainstreaming Facilitator Name Role Phone Unavailable Primary Care Provider Unavailabl e Surgical History Surgery Date Site/Laterality Comments TOTAL KNEE ARTHROPLASTY PROCEDURE: [place] ARTHRP KNE CONDYLE&PLATU MEDIAL&LAT COMPARTMENTS; COMMENT: left [...]
[2024-09-15 15:20] LABS: MANUAL DIFF FLAG NO
[2024-09-15 15:22] LABS: Basophils Percent Auto 0.5 % (0-2); Eosinophils Absolute Auto 0.2 X10*3/uL (0.0-0.4); Hematocrit 39.6 % (37.0-47.0); Hemoglobin 13.2 g/dl (12.0-16.0); Imm Gran Abs Auto 0.04 X10*3/uL (0.00-0.03); Imm Gran Pct Auto 0.5 % (0.0-0.4); Lymphocytes Absolute Auto 2.5 X10*3/uL (1.2-4.9); Lymphocytes Percent Auto 32.4 % (20-40); Mean Corpuscular HGB Conc 33.3 g/dl (31.0-35.0); Mean Corpuscular Hemoglobin 29.7 pg (27.0-33.0); Mean Platelet Volume 10.6 fL (9.4-12.3); Monocytes Absolute Auto 0.7 X10*3/uL (0.1-1.2); Monocytes Percent Auto 9.7 % (2-11); Neutrophils Absolute Auto 4.2 x10*3/uL (2.0-8.3); Neutrophils Percent Auto 54.9 % (45-73); Platelet Count 264 X10*3/uL (160-400); Red Blood Count 4.45 X10*6/uL (4.20-5.50); White Blood Count 7.7 X10*3/uL (4.8-10.8)
[2024-09-15 15:28] LABS: Estimated Average Glucose 111 mg/dL; Hemoglobin A1c % 5.5 % (<6.0)
[2024-09-15 15:39] LABS: Alanine Aminotransferase 10 U/L (0-31); Albumin Level 4.3 g/dL (3.5-5.0); Alkaline Phosphatase 131 U/L (39-117); Anion Gap 16 (12-20); Aspartate Amino Transferase 23 U/L (5-31); Bilirubin Total 0.3 mg/dL (0.0-1.0); Blood Urea Nitrogen 10 mg/dL (9-16); Calcium 9.1 mg/dL (8.4-10.2); Carbon Dioxide 26 mmol/L (22-29); Chloride 102 mmol/L (96-108); Estimated Glomerular Filt Rate > 60; Glucose Random 102 mg/dL (60-115); Potassium 4.4 mmol/L (3.3-5.1); Sodium 140 mmol/L (135-145); Total Protein 7.7 g/dL (6.5-8.0)
[2024-09-15 15:55] LABS: Ferritin 21 ng/mL (10-250); TSH reflex Free T4 0.61 uIU/mL (0.32-4.0)
[2024-09-15 15:58] LABS: Vitamin B12 1389 pg/mL (200-900)
[2024-09-18 04:39] LABS: LDL Cholesterol Direct 127 mg/dL (<100)
[2024-09-18 04:58] LABS: Follicle Stimulating Hormone 41.8 mIU/mL
[2024-09-24 16:07] LABS: Vitamin D 25-OH, D2 <4 ng/mL; Vitamin D 25-OH, D3 48 ng/mL; Vitamin D 25-OH, Total 48 ng/mL (30-100)
== END 2024-09-15 13:15 | disposition home or self-care (01) ==
LOC: HO.HMGCLDS 13:14
PROVIDERS: PCP Internal Medicine; Visit Provider Internal Medicine
DX: R53.1 Weakness (principal); E87.8 Other disorders of electrolyte and fluid balance, not elsewhere classified; R79.89 Other specified abnormal findings of blood chemistry; R10.32 Left lower quadrant pain; R53.83 Other fatigue; N92.0 Excessive and frequent menstruation with regular cycle
CPT/HCPCS: 36415; 80053; 82306; 82607; 82728; 83001; 83002; 83036; 83721; 84443; 85025

== ENCOUNTER 2024-12-28 15:24 | Outpatient (AMB) | payer OTHER, SELFPAY ==
[2024-12-28 15:38] VITALS: BP 140/84; PULSE 94; RESP 16; O2SAT 100; BMI 27.4
--- NOTE | 2024-12-28 15:38 | A.OFFPC_ITS ---
Vital Signs 12/28/24 15:38 Height 5 ft 5.5 in Weight 167 lb BMI 27.4 BP 140/84 H Blood Pressure Location Lt brachial Position Sitting Respiration 16 Pulse 94 Pulse Source Pulse Oximeter Pulse Oximetry (%) 100 Intake Visit Reasons: med management Front End Alignment Specialist Required: No Accompanied by: Self / Same As Patient Allergies sumatriptan (From IMITREX) Allergy (Unknown, Verified 08/16/24 08:42) INVOLUNTARY SPASMS bupropion (From Wellbutrin) Adverse Reaction (Unknown, Verified 08/16/24 08:42) stomach upset Medication List - Last Reconciled 12/28/24 by Betty Page MD buprenorphine-naloxone 8-2 mg (Suboxone) 3 film buccal DAILY clonidine HCl 0.2 mg PO TID omeprazole 20 mg PO DAILY 90 days venlafaxine ER 75 mg PO DAILY venlafaxine ER 37.5 mg PO DAILY Tobacco use date assessed: 12/28/24 Dental Screening Dental Screen Date: 12/28/24 Did you have a dental visit in the last 12 months?: Yes Did you have a dental problem in the last 6 months where you did not have access to dental care?: No HPI med management HPI Details History The patient is a 49-year-old female presenting with medication management issues and leg swelling. Medication Management Issues: - History of taking Venlafaxine 37.5 mg, previously increased to 75 mg as recommended by psychiatrist Tori Graham but retained self-monitored dose at 37.5 mg. - Clonidine is administered having drows iness and sleep issues, with sleep deprivation lasting five days. - Concern about withdrawal symptoms from Clonidine if a dose is missed. - Recent negative interaction with psych iatrist led to cessation of services. requesting me to take over her meds, agree to come every 3 M for monitoring and med refill it was clearly communicated to patient that missing the dose of clonidin can cause problem as she is on high dose regimen Leg Swelling: - Swelling with redness and hardness not ed in legs; one leg previously broken. - Symptoms indicate a possible circulati on problem, with vascular involvement. - Has history of smoking, potentially co mplicating vascular and respiratory health. Medical History: - History of depression, currently takin g Venlafaxine. - Sleep disturbances and current relianc e on Clonidine. Medications: - Venlafaxine 37.5 mg daily for depressi on. - Clonidine 0.6 mg daily (1 in morning, 2 at night) for managing anxiety/sleep. - Previously increased to Venlafaxine 75 mg by psychiatrist but patient self- manages to 37.5 mg. Social History: - Smoking history with difficulty quitti ng, previous use of nicotine gum. - Reported alcohol consumption reduced, but consumption noted (2 mimosas at a ). - Presently in a transition phase [facility] due to moving for living arrangements. - Loss of bottom dental prosthetic affec ting nutrition, facing challenges with dietary intake. - Recent stressful situations with effor ts to reduce alcohol and smoking due to health factors. - Girlfriend's mother recent ly, impacting current living situation. Problem List - Medication Management Issues - Leg Swelling , ref to vascular placed as well as Echo baseline - History of Depression - Sleep Disturbance - Chronic Smoking, need to stop urvashi - Chronic Obstructive Pulmonary Disease (COPD), in need of PFT Diagnostic results - Labs: Elevated B12 levels noted in August . [facility] - Previous psychiatrist: Tori tariq, services discontinued recently. Patient Instructions - Ensure rigorous adherence to Clonidine dosing schedule to avoid withdrawal. - Refrain from consuming alcohol when ta wenceslao Clonidine to prevent adverse interactions. - Schedule lab tests for B12 levels with out fasting before 2:30 PM. - Attend follow-up appointments every th ree months for medication reviews and refills. - go for PFT and Echo f.u 3 M Review of Systems General: No fever no chills neurological: No headaches no dizziness ear nose throat: No sore throat no hearing difficulty no ear pain cardiovascular: No syncope, no chest pain, no palpitations gastrointestinal: No nausea vomiting or diarrhea endocrine: No polyuria polydipsia no heat intolerance genitourinary: No dysuria skin: No new complaints Physical Exam general: Appears drowsy, no acute distress HEENT: No acute findings neck: Supple respiratory system: Able to talk in full sentences, no audible wheeze, no stridor cardiovascular: S1-S2 RRR gastrointestinal: No pain extremities: Swelling in legs and toes, 1+ with chornic stasis dermatitis bilateral RN BUILDING: Alert, awake, oriented x3, motor intact skin: Normal turgor [facility] Medical History Chronic GERD Uterine benign neoplasm Alcohol abuse Opiate dependence Fibroid Surgical History H/O myomectomy Hx of appendectomy Family History Mother Multiple sclerosis Father Substance use disorder Mental health disorder Social History Household Members: Spouse Housing: Apartment Alcohol intake: current Alcohol intake frequency: holidays/special occasions only Alcohol type: hard liquor Comment: SLEEEPING Patient Tobacco Use Status: Current everyday Tobacco user Cigarettes Per Day: 15 e-Cigarette/Vaping Use: Never Used Second Hand Smoke Exposure: Yes Substance Use Type: Opiates service: No Current occupational status: unemployed Cognitive needs: No Hearing needs: No Vision needs: No Female Reproductive History Menstrual Age of Menarche: 12 Questionnaire PHQ-9 Over the last 2 weeks, how often have you been bothered by any of the following problems? 1. Little interest or pleasure in doing things: not at all 2. Feeling down, depressed, or hopeless: not at all 3. Trouble falling or staying asleep, or sleeping too much: not at all 4. Feeling tired or having little energy: not at all 5. Poor appetite or overeating: not at all 6. Feeling bad about yourself - or that you are a failure or have let yourself or your family down: not at all 7. Trouble concentrating on things, such as reading the newspaper or watching television: not at all 8. Moving or speaking so slowly that other people could have noticed. Or the opposite - being so fidgety or restless that you have been moving around a lot more than usual: not at all 9. Thoughts that you would be better off or of hurting yourself in some way: not at all Total score: 0 Depression Screening Interpretation: Negative Depression Screening Done: Yes 77709 - PHQ-9 Billing: Yes Source: Developed by Drs. Fidel Gutierrez, Nesha Maciel, Kan Borrego and colleagues, with an educational chris from [employer]. Thrive Questionnaire Date Thrive assessed: 08/30/23 OMAIRA-7 AMB Questionnaire OMAIRA-7 Date OMAIRA - 7 assessed: 08/30/23 Feeling nervous, anxious, or on edge: 2 = More than half the days Not being able to stop or control worryin = Several days Worrying too much about different things: 1 = Several days Trouble relaxin = More than half the days Being so restless that it is hard to sit still: 1 = Several days Becoming easily annoyed or irritable: 0 = Not at all Feeling afraid as if something awful might happen: 0 = Not at all Total OMAIRA-7 score (0-4 normal; 5-9 mild; 10-14 moderate; 15-21 severe): 7 Source: Developed by Drs. Fidel Gutierrez, Nesha Maciel, Kan Borrego and colleagues, with an educational chris from [employer]. OMAIRA-7 Assessment Billing OMAIRA-7 Assessment Tool: OMAIRA-7 Assessment 20613 Physical exam (Primary Care) Vital Signs: Last Vital Signs Pulse 94 12/28/24 15:38 Resp 16 12/28/24 15:38 BP 140/84 H 12/28/24 15:38 Pulse Ox 100 12/28/24 15:38 BMI result Body Mass Index 27.4 Tobacco/Smoking Status: Tobacco use Status Tobacco use date assessed 12/28/24 12/28/24 15:44 Patient Tobacco Use Status Current everyday Tobacco 12/28/24 15:38 e-Cigarette/Vaping Use Never Used 12/28/24 15:38 Are you ready to quit: No Tobacco cessation counseling provided: Yes Relapse Prevention: discussed the importance of a supportive environment and discussed dietary, exercise and/or lifestyle changes CPT code: 97364 - 4-10 Minutes PHQ-9: PHQ-9 Score PHQ-9: Total score 0 12/28/24 16:08 Depression Screening Interpretation: Negative Thrive Assessment: Date of Thrive Assessment Date Thrive assessed 08/30/23 12/28/24 15:38 Coding Level of Care Code Est Pt Level 5 (59743) Diagnoses Swelling of both lower extremities M79.89 Chronic obstructive pulmonary disease, unspecified COPD type J44.9 COPD type: unspecified COPD Severe anxiety F41.9 Environmental allergies Z91.09 Recurrent major depressive disorder, in partial remission F33.41 Active/Remission status: in partial remission Possible alcohol use disorder on screening for alcoholism Z13.39 Chronic GERD K21.9 Edema, peripheral R60.9 Tobacco use disorder F17.200 Swelling of lower extremity M79.89 Additional Codes OMAIRA-7 Assessment Billing - OMAIRA-7 Assessment Tool: OMAIRA-7 Assessment 39449 ([id number]) PHQ-9 - 48371 - PHQ-9 Billing: Yes ([id number]) Vital Signs *Quality* - CPT code: 12789 - 4-10 Minutes ([id number]) Time Spent (min) 40 Comment Complex patient, review of chart/labs/rwxi-vc-afaz/coordination of care Assessment & Plan Assessment & Plan (1) Swelling of both lower extremities: Code(s): M79.89 - Other specified soft tissue disorders Category: Medical (2) COPD (chronic obstructive pulmonary disease): Code(s): J44.9 - Chronic obstructive pulmonary disease, unspecified Category: Medical Qualifiers: COPD type: unspecified COPD Qualified Code(s): J44.9 - Chronic obstructive pulmonary disease, unspecified (3) Severe anxiety: Code(s): F41.9 - Anxiety disorder, unspecified Category: Medical (4) Environmental allergies: Code(s): Z91.09 - Other allergy status, other than to drugs and biological substances Category: Medical (5) Major depression, recurrent: Code(s): F33.9 - Major depressive disorder, recurrent, unspecified Category: Medical Qualifiers: Active/Remission status: in partial remission Qualified Code(s): F33.41 - Major depressive disorder, recurrent, in partial remission (6) Possible alcohol use disorder on screening for alcoholism: Code(s): Z13.39 - Encounter for screening examination for other mental health and behavioral disorders Category: Medical (7) Chronic GERD: Code(s): K21.9 - Gastro-esophageal reflux disease without esophagitis Category: Medical (8) Edema, peripheral: Code(s): R60.9 - Edema, unspecified Category: Medical (9) Tobacco use disorder: Code(s): F17.200 - Nicotine dependence, unspecified, uncomplicated Category: Medical (10) Swelling of lower extremity: Code(s): M79.89 - Other specified soft tissue disorders Category: Medical Plan History The patient is a 49-year-old female presenting with medication management issues and leg swelling. Medication Management Issues: - History of taking Venlafaxine 37.5 mg, previously increased to 75 mg as recommended by psychiatrist Tori Graham but retained self-monitored dose at 37.5 mg. - Clonidine is administered having drowsiness and sleep issues, with sleep deprivation lasting five days. - Concern about withdrawal symptoms from Clonidine if a dose is missed. - Recent negative interaction with psychiatrist led to cessation of services. requesting me to take over her meds, agree to come every 3 M for monitoring and med refill it was clearly communicated to patient that missing the dose of clonidin can cause problem as she is on high dose regimen Leg Swelling: - Swelling with redness and hardness noted in legs; one leg previously broken. - Symptoms indicate a possible circulation problem, with vascular involvement. - Has history of smoking, potentially complicating vascular and respiratory health. Medical History: - History of depression, currently taking Venlafaxine. - Sleep disturbances and current reliance on Clonidine. Medications: - Venlafaxine 37.5 mg daily for depression. - Clonidine 0.6 mg daily (1 in morning, 2 at night) for managing anxiety/sleep. - Previously increased to Venlafaxine 75 mg by psychiatrist but patient self- manages to 37.5 mg. Social History: - Smoking history with difficulty quitting, previous use of nicotine gum. - Reported alcohol consumption reduced, but consumption noted (2 mimosas at a ). - Presently in a transition phase between homes due to moving for living arrangements. - Loss of bottom dental prosthetic affecting nutrition, facing challenges with dietary intake. - Recent stressful situations with efforts to reduce alcohol and smoking due to health factors. - Girlfriend's mother recently, impacting current living situation. Problem List - Medication Management Issues - Leg Swelling , ref to vascular placed as well as Echo baseline - History of Depression - Sleep Disturbance - Chronic Smoking, need to stop urvashi - Chronic Obstructive Pulmonary Disease (COPD), in need of PFT Diagnostic results - Labs: Elevated B12 levels noted in August. [facility] - Previous psychiatrist: Tori Graham, services discontinued recently. Patient Instructions - Ensure rigorous adherence to Clonidine dosing schedule to avoid withdrawal. - Refrain from consuming alcohol when taking Clonidine to prevent adverse interactions. - Schedule lab tests for B12 levels without fasting before 2:30 PM. - Attend follow-up appointments every three months for medication reviews and refills. - go for PFT and Echo f.u 3 M Orders: Orders Complete Blood Count Auto Diff 12/28/24 F33.9 - Major depressive disorder, recurrent, unspecified, F41.9 - Anxiety disorder, unspecified, K21.9 - Gastro- esophageal reflux disease without esophagitis, Z13.39 - Encounter for screening examination for other mental health and behavioral disorders, Z91.09 - Other allergy status, other than to drugs and biological substances Comprehensive Met. Panel 12/28/24 F33.9 - Major depressive disorder, recurrent, unspecified, F41.9 - Anxiety disorder, unspecified, K21.9 - Gastro-esophageal reflux disease without esophagitis, Z13.39 - Encounter for screening examination for other mental health and behavioral disorders, Z91.09 - Other allergy status, other than to drugs and biological substances LDL Cholesterol Direct 12/28/24 F33.9 - Major depressive disorder, recurrent, unspecified, F41.9 - Anxiety disorder, unspecified, K21.9 - Gastro-esophageal reflux disease without esophagitis, Z13.39 - Encounter for screening examination for other mental health and behavioral disorders, Z91.09 - Other allergy status, other than to drugs and biological substances TSH reflex Free T4 12/28/24 F33.9 - Major depressive disorder, recurrent, unspecified, F41.9 - Anxiety disorder, unspecified, K21.9 - Gastro-esophageal reflux disease without esophagitis, Z13.39 - Encounter for screening examination for other mental health and behavioral disorders, Z91.09 - Other allergy status, other than to drugs and biological substances Vitamin B12 12/28/24 F33.9 - Major depressive disorder, recurrent, unspecified, F41.9 - Anxiety disorder, unspecified, K21.9 - Gastro-esophageal reflux disease without esophagitis, Z13.39 - Encounter for screening examination for other mental health and behavioral disorders, Z91.09 - Other allergy status, other than to drugs and biological substances Vitamin D 25-OH (D2 and D3) 12/28/24 F33.9 - Major depressive disorder, recurrent, unspecified, F41.9 - Anxiety disorder, unspecified, K21.9 - Gastro-es ophageal reflux disease without esophagitis, Z13.39 - Encounter for screening examination for other mental health and behavioral disorders, Z91.09 - Other allergy status, other than to drugs and biological substances PFT pulmonary function test 12/28/24 J44.9 - Chronic obstructive pulmonary disease, unspecified CA echo transthoracic complete 12/28/24 F17.200 - Nicotine dependence, unspecified, uncomplicated, M79.89 - Other specified soft tissue disorders, R60.9 - Edema, unspecified Referrals Vascular Surgery Referral M79.89 - Other specified soft tissue disorders, R60.9 - Edema, unspecified Medications: New venlafaxine ER 37.5 mg PO DAILY 90 caps 0RF Changed From clonidine HCl 0.2 mg PO TID To clonidine HCl 0.2 mg PO TID 90 tabs 2RF 30 days
--- OUTSIDE RECORDS SUMMARY | 2024-12-28 17:40 | XMS_ITS | Clinical Summary ---
Author Organization [facility] Address [address] [place] [address] Care Team Providers Care Regional Office Coordinator Name Role Phone Unavailable Primary Care Provider Unavailabl e Surgical History Surgery Date Site/Laterality Comments TOTAL KNEE ARTHROPLASTY PROCEDURE: [place] ARTHRP KNE CONDYLE&PLATU MEDIAL&LAT COMPARTMENTS; COMMENT: left [...] Cervical Cancer Screening: P ap Smear 09/19/1995 Depression Screening 04/18/2024 Pneumococcal Vaccine: 50+ Ye ars (1 of 1 - PCV) 2024 Zoster Vaccines (1 of 2) 2024 COVID-19 Vaccine ( - 2023-2 5 season) 2024 Influenza Vaccine (#1) 2024 HIB Vaccines Aged Out No longer [...]
== END 2024-12-28 16:09 | disposition home or self-care (01) ==
LOC: HO.HMCC 15:24
PROVIDERS: PCP Internal Medicine; Visit Provider Internal Medicine
DX: M79.89 Other specified soft tissue disorders (principal); J44.9 Chronic obstructive pulmonary disease, unspecified; F41.9 Anxiety disorder, unspecified; Z91.09 Other allergy status, other than to drugs and biological substances; F33.41 Major depressive disorder, recurrent, in partial remission; Z13.39 Encounter for screening examination for other mental health and behavioral disorders; K21.9 Gastro-esophageal reflux disease without esophagitis; R60.9 Edema, unspecified; F17.200 Nicotine dependence, unspecified, uncomplicated

== ENCOUNTER → 2024-12-28 15:24 | Outpatient (BNVA) | payer OTHER, SELFPAY | PROVIDERS: PCP Internal Medicine; Visit Provider Internal Medicine | DX: K21.9 Gastro-esophageal reflux disease without esophagitis (principal); M79.89 Other specified soft tissue disorders; J44.9 Chronic obstructive pulmonary disease, unspecified; F41.9 Anxiety disorder, unspecified; F33.41 Major depressive disorder, recurrent, in partial remission; R06.09 Other forms of dyspnea; F17.200 Nicotine dependence, unspecified, uncomplicated; Z91.09 Other allergy status, other than to drugs and biological substances | CPT/HCPCS: 96127; 99212 ==

== ENCOUNTER 2025-02-05 13:57 | Outpatient (AMB) | payer OTHER, SELFPAY ==
[2025-02-05 14:12] VITALS: BP 130/74; PULSE 94; O2SAT 98; BMI 28.2
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
--- OUTSIDE RECORDS SUMMARY | 2025-02-05 18:43 | XMS_ITS | Clinical Summary ---
Author Organization [facility] Address [address] [place] [address] Care Team Providers Care Private Branch Exchange Service Advisor Name Role Phone Unavailable Primary Care Provider [...] 5 season) 2024 Influenza Vaccine (#1) 2024 RSV Immunization Adult Patie nts (1 - 1-dose 75+ series) 2049 HIB Vaccines Aged Out No longer eligi [...]
--- OUTSIDE RECORDS SUMMARY | 2025-02-05 18:43 | XMS_ITS | Data Portability ---
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 HPI: 47-year-old female seen today for follow-up status post intramedullary rodding left tibia fracture 06/10/22. Patient continues hav some pain at the fracture site, but her primary complaint is pain mostly around the ankle, both medial and lateral, increased with activity. At last visit we sent her for a CT scan to evaluate for completeness of healing at the fracture site. Comes in day without any significant change in symptoms. No fevers or chills. She did have 1 episode what appear to be cellulitis overlying this, but this has not recurred. She is back to work, still feel she is somewhat slower than before. 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 She was initially delayed in starting PT because partner was in a car accident. Also reports history of cellulitis of the left lower extremity approximately 3 years ago. Past medical history History of patella realignment in 1989, remote history opiate abuse, currently on Suboxone. Single, no children. Lives with her partner. Denies alcohol use in her intake sheet, but today apologizes because she was out drinking last night, is concerned whether she has any still on her breath. positive tobacco, currently no recreational drug use. Patient is well known by one of our MA and her family. Examination: Well-developed white female in no acute distress. She is alert and oriented x4 mood and affect appropriate. She is seen today alone. She is ambulatory, without cane or crutch.Minimal limp, surgical incisions benign, mild tenderness over the fracture site, some discomfort with ankle range of motion. She has hypersensitivity with tingling over the peroneal nerve distribution, full toe dorsiflexion and ankle dorsiflexion. Neurologically intact remainder of foot. Imaging Outside CT scan is reviewed with patient, AP and lateral, Exelon coronal and sagittal cuts of the left tibia show a united tibia fracture, united fibular fracture. Distal hardware is intact, the medial to lateral screws are in good position, but do contact the fibula slightly as they exit. Impression: Stable following intramedullary rodding of left tibia, she has had 1 bout of cellulitis that seems resolved. Fracture heale, with ongoing pain now more distal than at the fracture site. I think it is reasonable to remove her distal interlocking screws, also discussed possibility of removal of the entire leeanna, but given her slow initial healing I'm inclined to recommend the smaller operation come with less chance of refracture at the primary fracture site. Plan She expresses interest in this, so she will go home and discuss it with her partner, but may call us to schedule. Surgical plan Removal of hardware left tibia distal interlocking screws Outpatient day surgery, may do this at the surgery center. 30 minutes Local anesthesia plus MAC, or may choose general anesthesia if she prefers Mid-Aden table, C-ar, and surgeon can run it., Moshe screwdriver, local anesthesia on the field [facility] speech recognition sack sewer machine software was used to create portions of this document. An attempt at proofreading has been made to minimize errors. Please call for corrections. [email or web address] Not available 07/14/2023 18:58:26 03/05/2024 03/05/2024 History of Prese nt Illness A 48-year-old patient with a history of left tibia fracture treated with rodding on 06-10-2022 presents with persistent pain around the fracture site and to a greater degree in the ankle, especially medially over the hardware. The patient reports that the pain is constant and is exacerbated by ambulation, and external rotation. The patient also reports hypersensitivity over a peroneal nerve distribution, but is functionally able to dorsiflex her toe and ankle. The patient's fracture has healed, as confirmed by a CT scan, and several episodes of cellulitis have resolved. The patient is considering the removal of the interlocking screws or the leeanna to alleviate the pain. Past Medical History - Left tibia fracture on 06/10/22 - Several episodes of cellulitis (resolved) - Perineal nerve sensitivity - Patellar realignment in 1998 - Remote history of opioid abuse Medications - Suboxone Social History - Alcohol use socially - Cigarette smoking - No recreational drug use Examination Well-developed female no acute distress. She is alert, interacts appropriately with examiner. She is seen today with her mother and spouse. Patient is ambulatory without cane or crutch. Leg is without swelling warmth or erythema. Surgical incisions benign. She has tenderness over the medial ankle over the hardware, to a lesser degree laterally anterior to the fibula. No fluid collection or fluctuance over the area of the fracture line. Results RADIOLOGY AP lateral of left tibia, ordered obtained today reviewed in the office shows intact hardware within the left tibia. Fracture is healed at the distal one third, 3 distal interlocking screws, [address] scan: Healed left tibia fracture Assessment & Plan Left Tibia Fracture Healed fracture with persistent pain around the fracture site and ankle. Pain localized to the hardware sites. History of cellulitis episodes that have resolved. Discussed the possibility of hardware removal. -Plan for removal of interlocking screws and leeanna. -Schedule surgery as soon as possible. -Post-operative follow-up to assess pain and recovery. Hypersensitivity over Peroneal Nerve Distribution Able to dorsiflex toe and ankle functionally. -No specific plan discussed in the conversation. Past Medical History of Opioid Abuse Currently on Suboxone. -Continue current medication regimen. Surgical plan Removal of hardware left tibia TriGen rods, 1 proximal and 3 distal interlocking screws Outpatient day surgery, may do this at the surgery center. 1:30 minutes General anesthesia, with local anesthesia on the field, may opt for a block for postoperative pain control, saphenous and sciatic Mid-Aden table, C-arm, and surgeon can run it., Trigen leeanna removal set, local anesthesia on the field [employer] speech recognition sack sewer machine software was used to create portions of this document. An attempt at proofreading has been made to minimize errors. Please call for corrections. [email or web address] Not available 03/10/2024 11:28:27 04/05/2024 04/05/2024 PROCEDURES: - Discussed removal of hardware, specifically the screws from the patient's left tibia. Explained that removing only the screws is a smaller operation than removing both screws and leeanna. Informed patient that leeanna removal would require an incision at the top of the leg and drilling down to remove it. Noted that leeanna removal has varied outcomes: about 1/3 of patients experience relief, while 2/3 report no difference. Surgery for hardware removal scheduled. FOLLOW UP: - Follow up after the screw removal surgery. Assess need for physical therapy post-surgery. Surgical plan Removal of hardware left tibia, 1 hour day stay procedure. TriGen leeanna removal set, C arm, mid-Aden table, local anesthetic on the field general anesthesia. May have femoral nerve block if having the leeanna removed. Portions of this note were generated by Tamtron. Time spent with patient: 10 minutes [email or web address] Not available 04/05/2024 17:25:08 05/31/2024 05/31/2024 Findings and Studies were discussed with the patient and questions answered to their satisfaction PLAN SUMMARY: - Use cane or crutch as needed for comfortable walking - Referred to physical therapy for knee rehabilitation - Follow up in 5-6 weeks or sooner if problems arise - Use compression wrap from foot to knee if desired - Perform activities within comfort level, except those explicitly restricted - Avoid ice skating, bungee jumping, and skydiving LEFT KNEE PAIN: - Referred to physical therapy for knee range of motion, desensitization of the anterior aspect of left knee, gait, and balance. - Use cane or crutch as needed for comfortable walking. - Wrap the lower extremity evenly from foot to knee if choosing to use compression, avoiding tourniquet effect. RIGHT TIBIA FRACTURE: - Perform any desired activities within comfort level, except those explicitly restricted. - Avoid ice skating, bungee jumping, and skydiving. FOLLOW-UP: - Follow up in 5-6 weeks or sooner if problems arise. Patient may call or return sooner for any additional questions or changes in condition. Portions of this note were generated by Tamtron. Errors of sack sewer machine may occur- please feel free to reach out with any corrections or clarifications you may require. Time spent face to face with patient: 12 minutes [email or web address] Not available 05/31/2024 10:51:12 Plan of Treatment Reminders Order Date Submit Date Provider Last Modified By Organization Details Last Modified Time Details Appointments None recorded. Lab None recorded. Referral physical therapist referral - Left tibia fracture, radiograp hic and clinical union, now post hardware removal. Please assist with knee range of motion, desensiti zation of the anterior aspect of the left knee. Gait, balance. May use cane or crutch as needed. 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 2024 025 [email or web address] Not available 5 10:56:12 Procedures None recorded. Surgeries None recorded. Imaging XR, tibia + fibula, 2 view - 311 LEFT TIB/FIB 2V GLOBAL 2024 025 [email or web address] [facility], [address], [address], [place], [address], 5 10:56:12 XR, tibia + fibula, 2 view - 312 left tibia 2v recheck 2023 024 [email or web address] [facility], [address], [address], [place], [address], 5 08:05:34 XR, tibia + fibula, 2 view - rm 312 2v left tibia 2023 024 [facility] [address], [address], [place], [address], 4 09:15:27 Medication Orders None recorded. Patient TargetsNo targets recorded. Patient InstructionsNo instructions recorded. Reason for Referral Physical Therapist Referral for Closed fracture of shaft of left tibia Left tibia fracture, radiographic and clinical union, now post hardware removal. Please assist with knee range of motion, desensitization of the anterior aspect of the left knee. Gait, balance. 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 Referring Physician: Cachorro Becker, Orthopedic Surgery, Encounter Date: 05/31/2024 Results Created Date Observation Date Name Description Value Unit Range Abnormal Flag Note LastModifiedBy Organization Detail LastModifiedTime 06/28/1906/16/2023 MRI, lower extre mity non-j oint, w/o contr ast No observ ation record ed. ciera [facility] [place] [address] [address], [place], [address], 07/01/2023 07:14:13 06/28/19 24 06/16/2023 CT, lower extre mity, w/o contr ast No observ ation record ed. cieraci [facility] [place] [address] [facility] [address], [place], [address], 07/01/2023 07:13:46 03/05/20 24 03/05/2024 XR, tibia + fibul a, 2 view [email or web address] ?Encry pted=s hAaTro YD8dLq bEUv6g %2BXZw aYqtaq 0bqfl% 2Fg9IQ a4ajBk vP9nXo QUaueC m3YtLR FvZlgJ JJ8mAn HZtai3 1f6133 AC0Kqa XyBWKG jKiQtr MwF INTERFACE [facility] [address], [place], [address], 03/05/2024 14:39:10 03/05/20 24 03/05/2024 XR, tibia + fibul a, 2 view [email or web address] ?Encry pted=s hAaTro YD8dLq bEUv6g %2BXZw aYqtaq 0bqfl% 2Fg9IQ a4ajBk vP9nXo QUaueC m3YtLR FvZlgJ JJ8mAn HZtai3 8x1929 AC0Kqa XyBWKG jKiQtr MwF INTERFACE [facility] [address], [place], [address], 03/05/2024 14:39:12 04/05/20 24 04/05/2024 XR, tibia + fibul a, 2 view [email or web address] ?Encry pted=s hAaTro YD8dLq bEUv6g %2BXZw aYqtaq 0bqfl% 2Fg9IQ a4ajBk vP9nXo QUaueC m3YtLR FvZlgJ JJ8mAn HZtai3 7o3193 AC0Kqb nmBV6u jKiQtr MwF INTERFACE [facility] [address], [place], [address], 04/05/2024 09:19:07 04/05/20 24 04/05/2024 XR, tibia + fibul a, 2 view [email or web address] ?Encry pted=s hAaTro YD8dLq bEUv6g %2BXZw aYqtaq 0bqfl% 2Fg9IQ a4ajBk vP9nXo QUaueC m3YtLR FvZl JJ8[place] HZtai3 0q1316 AC0Kqb nmBV6u jKiQtr MwF INTERFACE [facility] [address], [place], [address], 04/05/2024 09:19:09 05/31/19 25 05/31/2024 XR, tibia + fibul a, 2 view [email or web address] ?Encry pted=s hAaTro YD8dLq bEUv6g %2BXZw aYqtaq 0bqfl% 2Fg9IQ a4ajBk vP9nXo QUaueC m3YtLR FvZlgJ JJ8mAn HZtai3 6w1496 AC0Kqb HWAVaa vKiQtr MwF INTERFACE [facility] [address], [place], [address], 05/31/2024 10:15:03 05/31/19 25 05/31/2024 XR, tibia + fibul a, 2 view [email or web address] ?Encry pted=s hAaTro YD8dLq bEUv6g %2BXZw aYqtaq 0bqfl% 2Fg9IQ a4ajBk vP9nXo QUaueC m3YtLR FvZlgJ JJ8mAn HZtai3 2r7042 AC0Kqb HWAVaa vKiQtr MwF INTERFACE [facility] [address] [facility], [place], [address], 05/31/2024 10:15:05 Result Notes Documentation Provider Name and Address Organization Details Recorded Time Xr, Tibia + Fibula, 2 View : [email or web address] Encrypted=zvTuKwwVH6oJbwH Uv6g%5YCDihXpqri9eogg%2Fg 4VSu8qjQbjN3wUnKGkxsHl6Sk LOIgVobCCU4wVtXKrxq15e012 8TK3ElcUpDNORtDpEmaRtZ Not Available [facility] 03/05/2024 14:39: 10 Xr, Tibia + Fibula, 2 View : [email or web address] Encrypted=eaBkZdxUK7qFvrK Uv6g%9MHVnsWxgco9nqtd%2Fg 7RWv7brAvqA5kQpHKjthZw7Zg YWYdHwmLOA3pFoQIryg01s566 9EM3LjuVyMPKRwDpUdvOcP Not Available [facility] 03/05/2024 14:39: 12 Xr, Tibia + Fibula, 2 View : [email or web address] Encrypted=ulTrNziDW5vZvaD Uv6g%3KYYnaMjvyv9jxhs%2Fg 1STp6zwEdxO4yQdMSqwrYr7Sz RXBwUuiFOR0rWiPOfbh85f710 8CC5DgyvtJZ9hoAiDtkUtG Not Available [facility] 04/05/2024 09:19: 08 Xr, Tibia + Fibula, 2 View : [email or web address] Encrypted=bgXrIoqZO0iBgvN Uv6g%4JKPjfPecov3zdkv%2Fg 0ANn7niUugH0iCdFOnxvNo8Jr SRNxMzqCIO0fYmKVrcb06r851 6QE7LliedLK6peXnJduYvX Not Available [facility] 04/05/2024 09:19: 09 Xr, Tibia + Fibula, 2 View : [email or web address] Encrypted=bhAeMhtWI5fGeqX Uv6g%1BDXmpNvnlg5uqmv%2Fg 2HZj0ivRmoS2qCnNQfcxGw0Ao TDZwQofUCN8qEnIFefi02b832 5VL5OjdTDMDipeUhPdoZuC Not Available [facility] 05/31/2024 10:15: 04 Xr, Tibia + Fibula, 2 View : [email or web address] Encrypted=pyPpAprRL5tXryW Uv6g%6VIAcpLxigs9olng%2Fg 1CLe0scZxyW4yPvDFpapRv1Wu MHJnKffBDB7lKgPAonq59p205 2JY5PyrPNRJqkpJdSekBkO Not Available [facility] 05/31/2024 10:15: 06 Problems Name Problem SNOMED Code Status Onset Date Resolution Date Notes Provider Name and Address Organization Details Recorded Time Closed fracture of upper end of tibia 28170209 Active 024 Cachorro Becker MD [address], [place], [address] , [facility] 4 16:31:58 Problem Notes None recorded. Procedures Surgical History Date Name Laterality Status Provider Name and Address Organization Details Recorded Time SURGICAL HARDWARE REMOVAL (SURG) completed MICHELLE GRIMM [facility] 05/23/2024 17:45:58 Imaging Results None recorded. Procedure Notes None recorded. Medical Equipment None Reported. Allergies No known drug allergies Medications Name Sig Start Date Stop Date Status Note LastModified by Organization Details LastModified Time venlafaxine ER 37.5 mg capsule,ext ended release 24 hr TAKE 1 CAPSULE BY MOUTH DAILY WITH 75 MG CAPSULE DIRECTED FOR A TOTAL DAILY DOSE OF 112.5 MG. active Not Available Not Available No t Available venlafaxine ER 75 mg capsule,ext ended release 24 hr TAKE 1 CAPSULE BY MOUTH EVERY DAY DIRECTED FOR 30 DAYS active Not Available Not Available No t Available azithromyci n 250 mg tablet TAKE 2 TABLETS BY MOUTH TODAY, THEN TAKE 1 TABLET DAILY FOR 4 DAYS DIRECTED 03/05 completed Not Available Not Available Not Available meloxicam 15 mg tablet TAKE 1 TABLET BY MOUTH EVERY DAY 03/05 completed Not Available Not Available Not Available thiamine HCl (vitamin B1) 100 mg tablet TAKE 1 TABLET BY MOUTH EVERY DAY 04/05 completed Not Available Not Available Not Available metronidazo le 500 mg tablet TAKE 1 TABLET BY MOUTH EVERY 8 HOURS FOR 7 DAYS 04/05 completed Not Available Not Available Not Available clonidine HCl 0.2 mg tablet TAKE 1 TABLET BY MOUTH THREE TIMES A DAY NEEDED active Not Available Not Available No t Available venlafaxine 37.5 mg tablet TAKE 1 TABLET BY MOUTH TWICE DAILY DIRECTED 04/05 completed Not Available Not Available Not Available pseudoephed rine-guaife nesin ER 80-700 mg tablet,exte nded release DO NOT DRIVE WHILE ON THIS MEDICATIO N 06/18 completed Statu s: 'Disc ontin ued'; Not Available Not Available Not Available ibuprofen 400 mg tablet TAKE 1 TABLET BY MOUTH 3 TIMES A DAY NEEDED FOR MILD PAIN 05/31 completed Not Available Not Available Not Available omeprazole 20 mg capsule,del ayed release TAKE 1 CAPSULE BY MOUTH EVERY DAY FOR 90 DAYS active Not Available Not Available No t Available folic acid 1 mg tablet TAKE 1 TABLET BY MOUTH EVERY DAY 03/05 completed Not Available Not Available Not Available gabapentin 100 mg capsule TAKE 1 CAPSULE BY MOUTH AT BEDTIME. MAY INCREASE BY 1 CAPSULE EACH DAY UP TO 3 CAPSULES DAILY 03/05 completed Not Available Not Available Not Available ibuprofen 600 mg tablet TAKE 1 TABLET BY MOUTH EVERY 8 HOURS NEEDED FOR PAIN FOR 7 DAYS active Not Available Not Available No t Available levofloxaci n 500 mg tablet TAKE 1 TABLET BY MOUTH DAILY FOR 7 DAYS 04/05 completed Not Available Not Available Not Available amoxicillin 875 mg-potassiu m clavulanate 125 mg tablet TAKE 1 TABLET BY MOUTH TWICE A DAY FOR 10 DAYS 03/05 completed Not Available Not Available Not Available oxycodone 5 mg tablet TAKE 1 TO 2 TABLETS EVERY 4 HOURS NEEDED FOR SEVERE PAIN. HOLD SUBOXONE WHILE TAKING. 05/31 completed Not Available Not Available Not Available hydroxyzine pamoate 25 mg capsule TAKE 1 CAPSULE BY MOUTH TWICE A DAY NEEDED FOR WITHDRAWA L SYMPTOMS 03/05 completed Not Available Not Available Not Available aripiprazol e ARIPipraz ole 2MG Tablet 01/14 completed Statu s: 'Disc ontin ued'; Not Available Not Available Not Available cholecalcif maggie (vitamin D3) 50 mcg (2,000 unit) capsule 05/31 completed Not Available Not Available Not Available Suboxone 8 mg-[address] 3 FILMS SUBLINGUA LLY DAILY active Not Available Not Available No t Available Vitals Date Recorded Body height Body mass index (BMI) Body weight Provider Name and Address Organization Details Last Updated DateTime 05/31/2024 166.37 cm 28.2 kg/m2 69170.89 g COREY CHONG [facility] 05/31/2024 10:08:30 Date Recorded Body height Body mass index (BMI) Body weight Provider Name and Address Organization Details Last Updated DateTime 07/14/2023 165.1 cm 29.1 kg/m2 65569.66 g Eli Tao [facility] 07/14/2023 09:15:25 Date Recorded Body height Body mass index (BMI) Body weight Provider Name and Address Organization Details Last Updated DateTime 03/05/2024 165.1 cm 29.1 kg/m2 72548.66 g COREY CHONG [facility] 03/05/2024 14:29:39 Date Recorded Body height Body mass index (BMI) Body weight Provider Name and Address Organization Details Last Updated DateTime 04/05/2024 166.37 cm 28.2 kg/m2 27561.89 g COREY CHONG [facility] 04/05/2024 09:08:33 Social History None recorded. Functional Status None recorded. Mental Status None recorded. Family History Nothing Reported. Medical History Condition Response Coronary Artery Disease N Anxiety/Depression N Emphysema N COPD N Pacemaker N Vascular Disease N Heart Trouble N Gastrointestinal Disease N Autoimmune disease N Inflammatory Joint disease N Orthotics N Arthritis N Blood Clot N Acid Reflux (GERD) N Cancer N Stroke N Circulation Problems N Rheumatoid Arthritis N Arrhythmia N Headaches N Fibromyalgia N Allergies/Hayfever N Breathing or lung disorders N Nerve Disorders N Thyroid Problems N Kidney/Bladder Problems N Anemia N Heart Attack (DE) N Cholesterol N Diabetes N Bleeding Disorder N Seizures/Epilepsy N AIDS/HIV N Congestive Heart Failure (CHF) N Asthma N Peripheral Vascular Disease N Sleep Apnea N Hepatitis N Heart Disease N Pulmonary Embolism N Hypertension N Osteoporosis N Gynecological HistoryNo gynecological history recorded. Obstetrics History GPAL:G 0 P 0 0 0 0 Past Encounters Encounter ID Performer Location Encounter Start Date Encounter Closed Date Diagnosis/Indication Diagnosis SNOMED-CT Code Diagnosis ICD10 Code Diagnosis IMO Codes Diagnosis Note [id number] MD Enoch Rowley [facility] [facility] [address] [place] [address] 07/14/2023 09:10:28 07/15/2023 08:37:36 Closed fracture of shaft of tibia 40664280 S82 Pain assoc iated with internal prosthetic device 743731306 T84.84XA [id number] MD Enoch Rowley [address] [place] [address] [address] [place] [address] 03/05/2024 14:16:08 03/23/2024 09:15:26 Closed fracture of upper end of tibia 15473588 S82.102D [id number] MD Enoch Rowley [address] [facility] [address] [place] [address] 04/05/2024 08:29:56 05/01/2024 08:05:34 Closed fracture of shaft of left tibia 4665361561 [id number] S82.202A [id number] MD LEANDER [facility] - [address] [facility] [address] [place] [address] 05/31/2024 09:46:42 06/19/2024 10:56:12 Closed fracture of shaft of left tibia [id number] S82.A [id number] Health Concerns Section Related Observation LastModified by Organization Detai ls LastModified Time None Recorded Concern Status LastModified by Organization Details LastModified Time None Recorded Advance Directives Directive None Recorded Payers Insurance Date Sequence Insurance Name Policy Number Policy Webster Covered Member ID Webster Member ID Guarantor Name 07/09/2024 1 [facility] NET PLAN (MEDICAID HMO) NICOLASA King [id number] Flori King Notes Date Note Type Note Provider Name and Address Organization Details Recorded Time 04/05/2024 text/html CHIEF COMPLAINT: - Ms. King presents today for follow-up evaluation of persistent pain around the left tibia fracture site and ankle following intramedullary leeanna placement on 06/10/2022, and to discuss hardware removal. HPI: Ms. King presents for evaluation of persistent pain related to a left tibia fracture treated with an intramedullary leeanna on 06/10/2022. She reports consistent pain around the fracture site and ankle, especially medially. She mentions a recent fall with a microwave, expressing concern about potential damage to the leg. She describes pain in the back of the leg near the calf muscles and in the front, stating, The back is hurting near the calf muscles. The front is also painful. She reports significant swelling and describes the pain as severe. She also notes some purplish discoloration in the toes. Her ability to walk has been significantly impacted. She states, I can no longer walk the distances I used to. I was previously able to walk 18 miles a day. She estimates being able to walk about a mile before needing to stop due to pain. She mentions constantly having to sit, take breaks, elevate the leg, or ice it for relief. She reports being unable to continue previous work due to these limitations, saying, I could not complete my shift. They offered me full-time work, but I could not manage the required mileage. Ms. King has a history of cellulitis versus sunburn episodes that have since resolved. She is currently taking Suboxone and has a remote history of opioid abuse. She smokes and uses alcohol socially. She denies any recurrent damage from the recent fall. She denies having Raynaud's syndrome in the leg. 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 King presents for a follow-up evaluation after hardware removal from a left tibia fracture. The original surgery was performed on 06/11/2022, with hardware removal on 05/15/2024. She reports significant knee pain, particularly near the incision site. Pain is worse when walking straight, leading to an altered gait with the knee slightly bent. She finds keeping the knee flexed at about 20 degrees to be the most comfortable position. Her ability to bear weight varies, stating that sometimes she can and sometimes she cannot. She also reports some swelling in the leg. Prior to hardware removal, she felt pain distally, and numbness in the dorsum of the foot, which she no longer experiences. MEDICAL HISTORY: - Left tibia fracture SURGICAL HISTORY: - Left tibia fracture repair: 06/11/2022 - Hardware removal from left tibia: 05/15/2024 PREVIOUS TREATMENTS: - Left tibia fracture surgery on 06/11/2022 SOCIAL HISTORY: - Alcohol Use: Ms. King mentions having Tess blood and that addiction runs in the family. Cachorro Becker MD [address], [place], [address], [facility] 05/31/2024 13:28:00 OBGyn Episode No OBEpisode recorded.
== END 2025-02-05 14:39 | disposition home or self-care (01) ==
LOC: HO.HMCC 13:58
PROVIDERS: PCP Internal Medicine; Visit Provider Internal Medicine
DX: S22.42XA Multiple fractures of ribs, left side, initial encounter for closed fracture (principal); Z09 Encounter for follow-up examination after completed treatment for conditions other than malignant neoplasm; R07.9 Chest pain, unspecified

== ENCOUNTER → 2025-02-05 13:57 | Outpatient (BNVA) | payer OTHER, SELFPAY | PROVIDERS: PCP Internal Medicine; Visit Provider Internal Medicine | DX: S22.42XD Multiple fractures of ribs, left side, subsequent encounter for fracture with routine healing (principal); R07.9 Chest pain, unspecified; Z09 Encounter for follow-up examination after completed treatment for conditions other than malignant neoplasm; Z91.81 History of falling; W19.XXXD Unspecified fall, subsequent encounter; Z79.899 Other long term (current) drug therapy | CPT/HCPCS: 99212 ==

== ENCOUNTER 2025-02-19 13:02 | Outpatient (AMB) | payer OTHER, SELFPAY ==
[2025-02-19 13:10] VITALS: BP 130/80; PULSE 74; O2SAT 94; BMI 27.7
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
--- OUTSIDE RECORDS SUMMARY | 2025-02-19 15:44 | XMS_ITS | Clinical Summary ---
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
--- OUTSIDE RECORDS SUMMARY | 2025-02-19 15:44 | XMS_ITS | Data Portability ---
Author Organization [facility] Gal Galindo [facility] Surgeons [facility], [facility] Address [address] [place] [address] Care Team Providers Care Rewinder Operator Helper Name Role Phone SACHIN TABARES Primary Care Provider Assessment Encounter Date Assessment Date Assessment LastModified [...] slower than before. 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 She was initially delayed in starting PT [...] Moshe screwdriver, local anesthesia on the field [facility] speech recognition medical transcriptionist software was used to create portions of this document. An attempt at proofreading has been made to minimize errors. Please call for corrections. Not available 07/14/2023 18:58:26 03/05/2024 03/05/2024 History [...] removal set, local anesthesia on the field [employer] speech recognition medical transcriptionist software was used to create portions of this document. An attempt at proofreading has been made to minimize errors. Please call for corrections. [email or web address] Not available 03/10/2024 11:28:27 04/05/2024 04/05/2024 PROCEDURES: [...] Portions of this note were generated by [employer]. Time spent with patient: 10 minutes [email or web address] Not available 04/05/2024 17:25:08 05/31/2024 05/31/2024 Findings [...] Portions of this note were generated by [employer]. Errors of medical transcriptionist may occur- please feel free to reach [...] [facility], [address], [address], [place], [address], 5 10:56:12 XR, tibia + fibula, 2 view - 312 left tibia 2v recheck 2023 024 rmessenger [facility], [address], [address], [place], [address], 5 08:05:34 XR, tibia + fibula, 2 view - rm 312 2v left tibia 2023 024 rmessBackerKit [facility], [address], [address], [place], [address], 4 09:15:27 Medication Orders None recorded. Patient [...] observ ation record ed. ciera [facility] [place] [address] [address], [place], [address], 07/01/2023 07:14:13 06/28/19 24 06/16/2023 CT, lower extre mity, w/o contr ast No observ ation record ed. cieraci [facility] [place] [address], [place], [address], 07/01/2023 07:13:46 03/05/20 24 03/05/2024 XR, tibia + fibul a, 2 view [email or web address]:/ [email or web address] ?Encry pted=s hAaTro YD8dLq bEUv6g %2BXZw aYqtaq 0bqfl% 2Fg9IQ a4ajBk vP9nXo QUaueC m3YtLR FvZlgJ JJ8mAn HZtai3 0v0744 AC0Kqa XyBWKG jKiQtr MwF INTERFACE [facility] [address], [place], [address], 03/05/2024 14:39:10 03/05/20 24 03/05/2024 XR, tibia + fibul a, 2 view [email or web address]:/ [email or web address] ?Encry pted=s hAaTro YD8dLq bEUv6g %2BXZw aYqtaq 0bqfl% 2Fg9IQ a4ajBk vP9nXo QUaueC m3YtLR FvZlgJ JJ8mAn HZtai3 1z7945 AC0Kqa XyBWKG jKiQtr MwF INTERFACE [facility] [address], [place], [address], 03/05/2024 14:39:12 04/05/20 24 04/05/2024 XR, tibia + fibul a, 2 view http:/ [email or web address] ?Encry pted=s hAaTro YD8dLq bEUv6g %2BXZw aYqtaq 0bqfl% 2Fg9IQ a4ajBk vP9nXo QUaueC m3YtLR FvZlgJ JJ8mAn HZtai3 9f5512 AC0Kqb nmBV6u jKiQtr MwF INTERFACE [facility] [address], [place], [address], 04/05/2024 09:19:07 04/05/20 24 04/05/2024 XR, tibia + fibul a, 2 view [email or web address]:/ [email or web address] ?Encry pted=s hAaTro YD8dLq bEUv6g %2BXZw aYqtaq 0bqfl% 2Fg9IQ a4ajBk vP9nXo QUaueC m3YtLR FvZl [facility] HZtai3 5v4461 AC0Kqb nmBV6u jKiQtr MwF INTERFACE [facility] [address], [place], [address], 04/05/2024 09:19:09 05/31/19 25 05/31/2024 XR, tibia + fibul a, 2 view [email or web address]:/ [email or web address] ?Encry pted=s hAaTro YD8dLq bEUv6g %2BXZw aYqtaq 0bqfl% 2Fg9IQ a4ajBk vP9nXo QUaueC m3YtLR FvZlgJ JJ8mAn HZtai3 5k3176 AC0Kqb HWAVaa vKiQtr MwF INTERFACE [facility] [address], [place], [address], 05/31/2024 10:15:03 05/31/19 25 05/31/2024 XR, tibia + fibul a, 2 view http:/ [email or web address] ?Encry pted=s hAaTro YD8dLq bEUv6g %2BXZw aYqtaq 0bqfl% 2Fg9IQ a4ajBk vP9nXo QUaueC m3YtLR FvZlgJ JJ8mAn HZtai3 1a3617 AC0Kqb HWAVaa vKiQtr MwF INTERFACE [facility] [address], [place], [address], 05/31/2024 10:15:05 Result Notes Documentation Provider Name and Address Organization Details Recorded Time Xr, Tibia + Fibula, 2 View : [email or web address] Encrypted=hjYwZvrQC3yIvjL Uv6g%1MRTcgHtiiw5zwwf%2Fg 0TWs0acTadY1jRhPYnwwAg1Mt KWNrOlaQIX7lDhYTamk70c398 3RA1LszPlJEVEeFkHkcZbU Not Available [facility] 03/05/2024 14:39: 10 Xr, Tibia + Fibula, 2 View : [email or web address] Encrypted=vjTtUyjYJ1xVleY Uv6g%2YPTljBycwo1rsrg%2Fg 6RUh7pqAgeI6mBlCWemeKk6Gq WENeSkyGSO1pIoGTpvz70j277 5IH4JnpIjCWNSiYmEpsYbO Not Available [facility] 03/05/2024 14:39: 12 Xr, Tibia + Fibula, 2 View : [email or web address] Encrypted=ziAbAgjXD6wWilU Uv6g%3ETCzzIllgq8xyga%2Fg 6GBc3mhZxcI5pYoPYcccUm4Gu TQFuJwlUJC3aGxIKolo88z822 1ZM0JbaluXS7rqFxIwsKnD Not Available [facility] 04/05/2024 09:19: 08 Xr, Tibia + Fibula, 2 View : [email or web address] Encrypted=ykRvZfnLV2cSpjM Uv6g%0SSJuxAhmgz6xzgv%2Fg 9QNy5tqWjxM0pUcUMupmDp6Sd CROxAckNCS1nHpAZgxp35j775 8QW6PuqmfVH4ldLqZxdScM Not Available [facility] 04/05/2024 09:19: 09 Xr, Tibia + Fibula, 2 View : [email or web address] Encrypted=vrIyYjtZR2qAkjD Uv6g%9NCYulRmxoe5eupz%2Fg 8ERu0soDewP6gPoKPdvoGc1El DBIoLimDNF6mGzVNwjn77d563 1DB1VydFZXWbxwCvOptMsD Not Available [facility] 05/31/2024 10:15: 04 Xr, Tibia + Fibula, 2 View : [email or web address] Encrypted=cvSvXfeAZ7oThdS Uv6g%6YPFvkZtibu1mtgv%2Fg 5LCi8xsNpnH6pFpYBueaWf8Cu TBBeDokNJB2bHnYQrlp15g415 3JF0VwpGEQBwnxNtNkiEsA Not Available [facility] 05/31/2024 10:15: 06 Problems Name Problem SNOMED Code Status Onset Date Resolution Date Notes Provider Name and Address Organization Details Recorded Time Closed fracture of upper end of tibia 69936224 Active 024 Cachorro Becker MD [address] [facility] [address] [address], [place], [address] , [facility] 4 16:31:58 Problem Notes None recorded. Procedures Surgical History Date Name Laterality Status Provider Name and Address Organization Details Recorded Time SURGICAL HARDWARE REMOVAL (SURG) completed MICHELLE GRIMM [facility] 05/23/2024 17:45:58 Imaging [...] Updated DateTime 05/31/2024 166.37 cm 28.2 kg/m2 34755.89 g COREY CHONG [facility] 05/31/2024 10:08:30 Date Recorded Body height Body mass index (BMI) Body weight Provider Name and Address Organization Details Last Updated DateTime 07/14/2023 165.1 cm 29.1 kg/m2 16978.66 g Eli Tao [facility] 07/14/2023 09:15:25 Date Recorded Body height Body mass index (BMI) Body weight Provider Name and Address Organization Details Last Updated DateTime 03/05/2024 165.1 cm 29.1 kg/m2 89188.66 g COREY CHONG [facility] 03/05/2024 14:29:39 Date Recorded Body height Body mass index (BMI) Body weight Provider Name and Address Organization Details Last Updated DateTime 04/05/2024 166.37 cm 28.2 kg/m2 66309.89 g COREY CHONG [facility] 04/05/2024 09:08:33 Social History None recorded. Functional Status None recorded. Mental Status None recorded. Family History Nothing Reported. Medical History Condition Response Allergies/Hayfever N Coronary Artery Disease N Anxiety/Depression N Breathing or lung disorders N Emphysema N Nerve Disorders N Thyroid Problems N COPD N Pacemaker N Anemia N Kidney/Bladder Problems N Vascular Disease N Heart Trouble N Heart Attack (DE) N Gastrointestinal Disease N Cholesterol N Diabetes N Autoimmune disease N Bleeding Disorder N Inflammatory Joint disease N Orthotics N Arthritis N Seizures/Epilepsy N Blood Clot N AIDS/HIV N Congestive Heart Failure (CHF) N Acid Reflux (GERD) N Cancer N Stroke N Asthma N Circulation Problems N Peripheral Vascular Disease N Sleep Apnea N Hepatitis N Heart Disease N Rheumatoid Arthritis N Arrhythmia N Pulmonary Embolism N Headaches N Fibromyalgia N Hypertension N Osteoporosis N Gynecological HistoryNo gynecological history recorded. Obstetrics History GPAL:G 0 P 0 0 0 0 Past Encounters Encounter ID Performer Location Encounter Start Date Encounter Closed Date Diagnosis/Indication Diagnosis SNOMED-CT Code Diagnosis ICD10 Code Diagnosis IMO Codes Diagnosis Note [id number] MD [facility]no[facility] [address] [place] [address] 07/14/2023 09:10:28 07/15/2023 08:37:36 Closed fracture of shaft of tibia 91824313 S82 Pain assoc iated with internal prosthetic device 456330477 T84.84XA [id number] MD Enoch Rowley [address] [place] [address] [address] [place] [address] 03/05/2024 14:16:08 03/23/2024 09:15:26 Closed fracture of upper end of tibia 19657442 S82.102D [id number] MD [facility]ley [address] [place] [address] 04/05/2024 08:29:56 05/01/2024 08:05:34 Closed fracture of shaft of left tibia 7941295197 4398562 S82.202A [id number] MD LEANDER [facility] - [address] [address] [place] [address] 05/31/2024 09:46:42 06/19/2024 10:56:12 Closed fracture of shaft of left tibia 6306155113 6112438 S82.A 714424168 Health Concerns Section Related Observation LastModified by Organization Detai ls LastModified Time None Recorded Concern Status LastModified by Organization Details LastModified Time None Recorded Advance Directives Directive None Recorded Payers Insurance Date Sequence Insurance Name Policy Number Policy Webster Covered Member ID Webster Member ID Guarantor Name 07/09/2024 1 [facility] NET PLAN (MEDICAID HMO) NICOLASA King [id number] Flori King Notes Date Note Type Note [...] Currently not working - Previously worked in [employer], 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 04/05/2024 17:25:30 05/31/2024 text/html CHIEF COMPLAINT: - [...] in the family. Cachorro Becker MD [address], [place], [address], [facility] 05/31/2024 13:28:00 OBGyn Episode No OBEpisode recorded.
== END 2025-02-19 13:38 | disposition home or self-care (01) ==
LOC: HO.HMCC 13:03
PROVIDERS: PCP Internal Medicine; Visit Provider Internal Medicine
DX: J93.9 Pneumothorax, unspecified (principal); S29.9XXD Unspecified injury of thorax, subsequent encounter; S22.42XA Multiple fractures of ribs, left side, initial encounter for closed fracture; R91.1 Solitary pulmonary nodule; J44.9 Chronic obstructive pulmonary disease, unspecified; Z72.0 Tobacco use; R52 Pain, unspecified

== ENCOUNTER 2025-02-19 13:02 | Outpatient (REF) | payer OTHER, SELFPAY ==
--- NOTE | ~2025-02-19 | XR_ITS ---
EXAMINATION: XR RIBS, LEFT CLINICAL INFORMATION: S22.42XA - Multiple fractures of ribs, left side, initial encounter for ... COMPARISON: November 05, 2021. TECHNIQUE: AP view chest. Oblique views left hemithorax. FINDINGS: There is a moderate to large volume meniscal shaped opacity in the left lower hemithorax. There is a questionable tiny left-sided pneumothorax. There are multiple displaced rib fractures throughout the ribs of the left hemithorax involving the posterior lateral components from left third rib to the ninth rib. Right lung is aerated. The cardiomediastinal silhouette size is normal with blunting of the left lower margin. XR/XR ribs LT min 3V w CXR1V IMPRESSION: Multiple displaced rib fractures, left hemithorax resulting in moderate to large volume left-sided pleural effusion possibly hemothorax and small left-sided pneumothorax. Cardiomediastinal silhouette remains midline. Requesting provider, Dr Betty Page contacted via [employer] at 2:05 PM on February 19, 2025. Radiology Dora contacted the imaging facility and to the certified medical aide at 2:19 PM on February 19, 2025.. Electronically signed by: Brent Gaines MD 02/19/2025 02:21 PM ESTIVEN
== END 2025-02-19 13:03 | disposition home or self-care (01) ==
LOC: HO.HMGCX 13:02
PROVIDERS: PCP Internal Medicine; Visit Provider Internal Medicine
DX: R91.1 Solitary pulmonary nodule (principal); J93.9 Pneumothorax, unspecified; J44.9 Chronic obstructive pulmonary disease, unspecified; S29.9XXD Unspecified injury of thorax, subsequent encounter; S22.42XD Multiple fractures of ribs, left side, subsequent encounter for fracture with routine healing; F17.210 Nicotine dependence, cigarettes, uncomplicated; V18.0XXD Pedal cycle driver injured in noncollision transport accident in nontraffic accident, subsequent encounter
CPT/HCPCS: 71101; 96127; 99212

== ENCOUNTER → 2025-02-19 13:45 | Outpatient (BNV) | payer OTHER, SELFPAY | PROVIDERS: PCP Internal Medicine; Visit Provider Radiology Diagnostic Radiology | DX: S22.42XA Multiple fractures of ribs, left side, initial encounter for closed fracture (principal); J90 Pleural effusion, not elsewhere classified | CPT/HCPCS: 71101 ==

== ENCOUNTER 2025-03-06 13:04 | Outpatient (AMB) | payer OTHER, SELFPAY ==
--- NOTE | 2025-03-06 13:10 | A.OFFPC_ITS ---
Vital Signs 03/06/25 13:11 Height 5 ft 5.5 in Weight 170 lb BMI 27.9 BP 146/80 H Blood Pressure Location Rt brachial Position Sitting Respiration 16 Pulse 97 Pulse Source Pulse Oximeter Pulse Oximetry (%) 94 Oxygen Delivery Method Room Air Intake Visit Reasons: 2 weeks f/up Allergies sumatriptan (From IMITREX) Allergy (Unknown, Verified 03/06/25 13:12) INVOLUNTARY SPASMS bupropion (From Wellbutrin) Adverse Reaction (Unknown, Verified 03/06/25 13:12) stomach upset Medication List - Last Reconciled 03/06/25 by Betty Page MD buprenorphine-naloxone 8-2 mg (Suboxone) 3 film buccal DAILY clonidine HCl 0.2 mg PO TID 30 days ibuprofen 800 mg PO TID nicotine (Nicoderm CQ) 1 patch transdermal DAILY 28 days nicotine 1 patch transdermal DAILY omeprazole 20 mg PO BID 90 days venlafaxine ER 37.5 mg PO DAILY Tobacco use date assessed: 03/06/25 Dental Screening Dental Screen Date: 12/28/24 HPI 2 weeks f/up HPI Details Was in [facility] recently and had a pulmonary consultation done on 02/20/2025 Patient has a history of polysubstance use she was recently admitted it [facility] after having a fall and multiple rib fractures Patient has been on narcotic pain management since Last time she was seen we did the chest x-ray which showed pneumothorax Patient was directed to emergency room CTA of chest completed in emergency room showed right lower lobe subsegmental filling defect which may be suggestive of small pulmonary embolism as well as small to moderate left pleural effusion which appeared loculated along the left major fissure Patient did verbalize to having pain and dyspnea which was worsened over last few days There was no fever no chills nausea or vomiting no cough She was also found to have 0.2 cm pulmonary nodule left upper lobe patient is a chronic smoker and will need repeat CT scan in 12 months. Her rib fractures are located on the left side After evaluation since patient was ambulating there was no need for oxygen no fever no chills it was thought that the pleural effusion is due to pleural irritation secondary to rib fractures thoracentesis was not indicated The provider had a lengthy discussion with the patient and recommended to have NSAIDs as a form of pain management Regarding the small subsegmental pleural embolism was considered low risk and anticoagulation was not recommended at that time Traumatic rib fractures are from 07/13 left side pleural effusion is loculated left side right subsegmental pulmonary embolism She was supposed to go back and follow up in 4-6 week with a document improvement specialist and continue NSAIDs for pleuritic pain Patient was evaluated by Dr. Dawson Avila Hypertension: - Her blood pressure was elevated to 146 /80 mmHg during the visit and was 157 in the hospital, which she considers high for her. - The elevation is attributed to pain. - She takes clonidine three times a day for her blood pressure. Tobacco Use Disorder: - The patient has a history of smoking. - She had been using nicotine patches bu t recently resumed smoking to cope with stress from her pain. Problem List - Multiple rib fractures - Subsegmental pulmonary embolism - Left upper lobe pulmonary nodule - Hypertension - Tobacco use disorder Plan - The patient will continue to follow up with the tankroom tender, Dr. Osman, with an appointment scheduled for the . - For pain management of rib fractures, the plan is to continue with NSAIDs as per the specialist's recommendation for inflammation control. Management is deferred to the specialist. - A refill for omeprazole has been sent, with instructions to take it twice daily for gastric protection while on NSAIDs. - Refills for venlafaxine and clonidine have been sent. - A repeat CT scan is recommended in 12 months (February of next year) to monitor the stability of the left upper lobe pulmonary nodule. - The patient was advised to go to the e mergency department if her symptoms worsen, as this could indicate an increase in pleural fluid.. - Follow up in the clinic in three month s. Review of Systems - General: No fever no chills - Neurological: No headaches no dizziness - Ear nose throat: No sore throat no hearing difficulty no ear pain - Cardiovascular: No syncope, no chest pain, no palpitations - Gastrointestinal: No nausea vomiting or diarrhea Physical Exam General: Sitting down leaning to left holding her chest HEENT: No acute findings Neck: Supple Respiratory system: Able to talk in full sentences, no audible wheeze, pulse ox 94% on room air Cardiovascular: S1-S2 regular in rate and rhythm, blood pressure 146/80 Gastrointestinal: No pain Extremities: No new findings CRUISE GUIDE: Alert awake oriented x3 motor intact Skin: Normal turgor [facility] Medical History Chronic GERD Uterine benign neoplasm Alcohol abuse Opiate dependence Fibroid Surgical History H/O myomectomy Hx of appendectomy Family History Mother Multiple sclerosis Father Substance use disorder Mental health disorder Social History Household Members: Spouse Housing: Apartment Alcohol intake: current Alcohol intake frequency: holidays/special occasions only Alcohol type: hard liquor Comment: SLEEEPING Patient Tobacco Use Status: Current everyday Tobacco user Cigarettes Per Day: 15 e-Cigarette/Vaping Use: Never Used Second Hand Smoke Exposure: Yes Substance Use Type: Opiates service: No Current occupational status: unemployed Cognitive needs: No Hearing needs: No Vision needs: No Female Reproductive History Menstrual Age of Menarche: 12 Questionnaire Thrive Questionnaire Date Thrive assessed: 03/20/24 I am a: Patient What is your living situation today?: I choose not to answer this question Within the past 12 months, did the food you bought not last and you didn't have the money to get more?: Often true Within the past 12 months, did you worry whether your food would run out before you got money to buy more?: Often true Do you have trouble paying for medicines?: No Do you have trouble getting transportation to medical appointments?: No Do you have trouble paying your heating and electricity bill?: Yes Do you have trouble taking care of your child, family member or friend?: No Do you have trouble with day-to-day activities such as bathing, preparing meals, shopping, managing finances, etc.?: Yes Are you currently unemployed and looking for a job?: Yes Are you interested in more education?: No Currently or been in a relationship where the following occur: No concerns reported THRIVE Score: 3 OMAIRA-7 AMB Questionnaire OMAIRA-7 Date OMAIRA - 7 assessed: 02/19/25 Source: Developed by Drs. Fidel Gutierrez, Nesha Maciel, Kan Borrego and colleagues, with an educational chris from [employer]. Physical exam (Primary Care) Vital Signs: Last Vital Signs Pulse 97 03/06/25 13:11 Resp 16 03/06/25 13:11 BP 146/80 H 03/06/25 13:11 Pulse Ox 94 03/06/25 13:11 Oxygen Delivery Method Room Air 03/06/25 13:11 BMI result Body Mass Index 27.9 Tobacco/Smoking Status: Tobacco use Status Tobacco use date assessed 03/06/25 03/06/25 13:16 Patient Tobacco Use Status Current everyday Tobacco 03/06/25 13:11 e-Cigarette/Vaping Use Never Used 03/06/25 13:11 Thrive Assessment: Date of Thrive Assessment Date Thrive assessed 03/20/24 03/06/25 13:11 Currently or been in a relationship where the following occur: No concerns reported Coding Level of Care Code Est Pt Level 5 (72466) Diagnoses Hospital discharge follow-up Z09 Pneumothorax, left J93.9 Closed fracture of multiple ribs of left side, initial encounter S22.42XA Encounter type: initial encounter Fracture type: closed Laterality: left Tobacco abuse Z72.0 Pleural effusion, left J90 Pulmonary nodule less than 1 cm in diameter with moderate to high risk for malignant neoplasm R91.1; Z91.89 Time Spent (min) 41 Comment Reviewing hospital notes/specialist notes/sxsb-er-uhqw with the patient/coordination of ca Assessment & Plan Assessment & Plan (1) Hospital discharge follow-up: Code(s): Z09 - Encounter for follow-up examination after completed treatment for conditions other than malignant neoplasm Category: Medical (2) Pneumothorax, left: Code(s): J93.9 - Pneumothorax, unspecified Category: Medical (3) Multiple rib fractures: Code(s): S22.49XA - Multiple fractures of ribs, unspecified side, initial encounter for closed fracture Category: Medical Qualifiers: Encounter type: initial encounter Fracture type: closed Laterality: left Qualified Code(s): S22.42XA - Multiple fractures of ribs, left side, initial encounter for closed fracture (4) Tobacco abuse: Comment: Smoking damages our blood vessels, causes scaring of lungs leading to COPD and shortness of breath. It can also cause coronary artery disease leading to heart attack, and can cause degenerative disc disease , it can also predispose our body to certain cancers. Try to decrease cigarette use by 1 to 2 cigarettes/ week. When you are ready to quit let your primary care Know, or you can buy the nicotine patches there vlzr-goi-yokozof. Code(s): Z72.0 - Tobacco use Category: Medical (5) Pleural effusion, left: Code(s): J90 - Pleural effusion, not elsewhere classified Category: Medical (6) Pulmonary nodule less than 1 cm in diameter with moderate to high risk for malignant neoplasm: Code(s): R91.1 - Solitary pulmonary nodule; Z91.89 - Other specified personal risk factors, not elsewhere classified Category: Medical Plan Was in [facility] recently and had a pulmonary consultation done on 02/20/2025 Patient has a history of polysubstance use she was recently admitted it [facility] after having a fall and multiple rib fractures Patient has been on narcotic pain management since Last time she was seen we did the chest x-ray which showed pneumothorax Patient was directed to emergency room CTA of chest completed in emergency room showed right lower lobe subsegmental filling defect which may be suggestive of small pulmonary embolism as well as small to moderate left pleural effusion which appeared loculated along the left major fissure Patient did verbalize to having pain and dyspnea which was worsened over last few days There was no fever no chills nausea or vomiting no cough She was also found to have 0.2 cm pulmonary nodule left upper lobe patient is a chronic smoker and will need repeat CT scan in 12 months. Her rib fractures are located on the left side After evaluation since patient was ambulating there was no need for oxygen no fever no chills it was thought that the pleural effusion is due to pleural irritation secondary to rib fractures thoracentesis was not indicated The provider had a lengthy discussion with the patient and recommended to have NSAIDs as a form of pain management Regarding the small subsegmental pleural embolism was considered low risk and anticoagulation was not recommended at that time Traumatic rib fractures are from 07/13 left side pleural effusion is loculated left side right subsegmental pulmonary embolism She was supposed to go back and follow up in 4-6 week with a document improvement specialist and continue NSAIDs for pleuritic pain Patient was evaluated by Dr. Dawson Avila Hypertension: - Her blood pressure was elevated to 146/80 mmHg during the visit and was 157 in the hospital, which she considers high for her. - The elevation is attributed to pain. - She takes clonidine three times a day for her blood pressure. Tobacco Use Disorder: - The patient has a history of smoking. - She had been using nicotine patches but recently resumed smoking to cope with stress from her pain. Problem List - Multiple rib fractures - Subsegmental pulmonary embolism - Left upper lobe pulmonary nodule - Hypertension - Tobacco use disorder Plan - The patient will continue to follow up with the tankroom tender, Dr. Osman, with an appointment scheduled for the . - For pain management of rib fractures, the plan is to continue with NSAIDs as per the specialist's recommendation for inflammation control. Management is deferred to the specialist. - A refill for omeprazole has been sent, with instructions to take it twice daily for gastric protection while on NSAIDs. - Refills for venlafaxine and clonidine have been sent. - A repeat CT scan is recommended in 12 months (February of next year) to monitor the stability of the left upper lobe pulmonary nodule. - The patient was advised to go to the emergency department if her symptoms worsen, as this could indicate an increase in pleural fluid.. - Follow up in the clinic in three months. Medications: Changed From omeprazole 20 mg PO DAILY 90 days 90 caps 1RF K21.9 - Gastro-esophageal reflux disease without esophagitis To omeprazole 20 mg PO BID 180 caps 0RF 90 days K21.9 - Gastro-esophageal reflux disease without esophagitis Refilled 2 clonidine HCl 0.2 mg PO TID 90 tabs 2RF 30 days venlafaxine ER 37.5 mg PO DAILY 90 caps 0RF
[2025-03-06 13:11] VITALS: BP 146/80; PULSE 97; RESP 16; O2SAT 94; BMI 27.9
--- OUTSIDE RECORDS SUMMARY | 2025-03-07 01:00 | XMS_ITS | Data Portability ---
Author Organization [facility] Gal Galindo Wvv[facility]ta [facility], [facility] Address [address] [place] [address] Care Team Providers Care Hand Icer Name Role Phone SACHIN TABARES Primary Care [...] slower than before. 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 She was initially delayed in starting PT [...] screwdriver, local anesthesia on the field [facility] speech recognition cemetery worker software was used to create portions of this document. An attempt at proofreading has been made to minimize errors. Please call for corrections. [email or web address] Not available 07/14/2023 18:58:26 03/05/2024 03/05/2024 History [...] removal set, local anesthesia on the field [employer] speech recognition cemetery worker software was used to create portions of this document. An attempt at proofreading has been made to minimize errors. Please call for corrections. [email or web address] Not available 03/10/2024 11:28:27 04/05/2024 04/05/2024 PROCEDURES: [...] Portions of this note were generated by [employer]. Time spent with patient: 10 minutes Not available 04/05/2024 17:25:08 05/31/2024 05/31/2024 Findings [...] Portions of this note were generated by [employer]. Errors of cemetery worker may occur- please feel free to reach [...] [facility], [address], [address], [place], [address], 5 10:56:12 XR, tibia + fibula, 2 view - 312 left tibia 2v recheck 2023 024 rmessenger [facility], [address], [address], [place], [address], 5 08:05:34 XR, tibia + fibula, 2 view - rm 312 2v left tibia 2023 024 [employer] [facility], [address], [address], [place], [address], 4 09:15:27 Medication Orders None recorded. Patient [...] observ ation record ed. ciera [facility] [place] [address] [address], [place], [address], 07/01/2023 07:14:13 06/28/19 24 06/16/2023 CT, lower extre mity, w/o contr ast No observ ation record ed. cieraci [facility] [place] [address] [facility] [address], [place], [address], 07/01/2023 07:13:46 03/05/20 24 03/05/2024 XR, tibia + fibul a, 2 view [email or web address] ?Encry pted=s hAaTro YD8dLq bEUv6g %2BXZw aYqtaq 0bqfl% 2Fg9IQ a4ajBk vP9nXo QUaueC m3YtLR FvZlgJ JJ8mAn HZtai3 8j5770 AC0Kqa XyBWKG jKiQtr MwF INTERFACE [facility] [address], [place], [address], 03/05/2024 14:39:10 03/05/20 24 03/05/2024 XR, tibia + fibul a, 2 view [email or web address] ?Encry pted=s hAaTro YD8dLq bEUv6g %2BXZw aYqtaq 0bqfl% 2Fg9IQ a4ajBk vP9nXo QUaueC m3YtLR FvZlgJ JJ8mAn HZtai3 0m6769 AC0Kqa XyBWKG jKiQtr MwF INTERFACE [facility] [address], [place], [address], 03/05/2024 14:39:12 04/05/20 24 04/05/2024 XR, tibia + fibul a, 2 view [email or web address]:/ [email or web address] ?Encry pted=s hAaTro YD8dLq bEUv6g %2BXZw aYqtaq 0bqfl% 2Fg9IQ a4ajBk vP9nXo QUaueC m3YtLR FvZlgJ JJ8mAn HZtai3 4v6393 AC0Kqb nmBV6u jKiQtr MwF INTERFACE [facility] [address], [place], [address], 04/05/2024 09:19:07 04/05/20 24 04/05/2024 XR, tibia + fibul a, 2 view [email or web address] ?Encry pted=s hAaTro YD8dLq bEUv6g %2BXZw aYqtaq 0bqfl% 2Fg9IQ a4ajBk vP9nXo QUaueC m3YtLR FvZl JJ8Elkhorn HZtai3 6f0817 AC0Kqb nmBV6u jKiQtr MwF INTERFACE [facility] [address], [place], [address], 04/05/2024 09:19:09 05/31/19 25 05/31/2024 XR, tibia + fibul a, 2 view [email or web address]:/ [email or web address] ?Encry pted=s hAaTro YD8dLq bEUv6g %2BXZw aYqtaq 0bqfl% 2Fg9IQ a4ajBk vP9nXo QUaueC m3YtLR FvZlgJ JJ8mAn HZtai3 4h2233 AC0Kqb HWAVaa vKiQtr MwF INTERFACE [facility] [address], [place], [address], 05/31/2024 10:15:03 05/31/19 25 05/31/2024 XR, tibia + fibul a, 2 view [email or web address]:/ [email or web address] ?Encry pted=s hAaTro YD8dLq bEUv6g %2BXZw aYqtaq 0bqfl% 2Fg9IQ a4ajBk vP9nXo QUaueC m3YtLR FvZlgJ JJ8mAn HZtai3 2e3915 AC0Kqb HWAVaa vKiQtr MwF INTERFACE [facility] [address] [facility] [address], [place], [address], 05/31/2024 10:15:05 Result Notes Documentation Provider Name and Address Organization Details Recorded Time Xr, Tibia + Fibula, 2 View : [email or web address] Encrypted=orLyBwrOQ3zWjqO Uv6g%8ZNFlyNqiqg5wsix%2Fg 3WLg3cgZtuP8hVcUWskcUo6Ib OPAuEgpMOG3lCjLAygh94k800 2SZ3NbvDbTTDFnEqXobTfV Not Available [facility] 03/05/2024 14:39: 10 Xr, Tibia + Fibula, 2 View : [email or web address] Encrypted=huKyIpyCC1aVjvV Uv6g%4TLUcwJzenx1uagz%2Fg 1PVt6fuMlzY0fVxWLrqfXc6Pq KFQgBxhMOZ6bLuSVhez79c053 9VI9UicMuHYHDcFnGeqHlU Not Available [facility] 03/05/2024 14:39: 12 Xr, Tibia + Fibula, 2 View : [email or web address] Encrypted=mnNyJeoMR6iGzxM Uv6g%2JNMdbLcslx1eegf%2Fg 1GEk4wnJqxR5lZuKLcnjDy6Do OUOpWclHEH5xNrZVwob99k434 6CU7DdjryFC0xeLeBtqPoL Not Available [facility] 04/05/2024 09:19: 08 Xr, Tibia + Fibula, 2 View : [email or web address] Encrypted=wgBuHkzQH4mZqsK Uv6g%8MHVggBlcyd7petp%2Fg 3WSb6zgUkrH9xGoWYmapId6Ho CJViNqkSIV1oCnKDiay19j842 2GU6JrdfhTN2hdFfZlzHjI Not Available [facility] 04/05/2024 09:19: 09 Xr, Tibia + Fibula, 2 View : [email or web address] Encrypted=ogQzGfcAT0dDjoP Uv6g%0WMIsfEzebe4otas%2Fg 5LEq2kbImnU5rYcCJromSw0Jf NRItYwjKQZ9rFfRZnyy44q782 4JW3KchAOTAkdlGjWigIjK Not Available [facility] 05/31/2024 10:15: 04 Xr, Tibia + Fibula, 2 View : [email or web address] Encrypted=tgWiWvhJA5aHwkC Uv6g%6DARsuQmsnr8xqtd%2Fg 1IJf7fyHbsD3lVwWEslaDm3Ko CGXcLceTTI2rYgRTfnk73s193 7FB4TsqLNEWjwgEoCrnCwN Not Available [facility] 05/31/2024 10:15: 06 Problems Name Problem SNOMED Code Status Onset Date Resolution Date Notes Provider Name and Address Organization Details Recorded Time Closed fracture of upper end of tibia 73653813 Active 024 Cachorro Becker MD [address], [place], [address] , [facility] 4 16:31:58 Problem Notes None recorded. Procedures Surgical History Date Name Laterality Status Provider Name and Address Organization Details Recorded Time SURGICAL HARDWARE REMOVAL (SURG) completed MICHELLE GRIMM [facility] 05/23/2024 17:45:58 Imaging [...] Updated DateTime 05/31/2024 166.37 cm 28.2 kg/m2 14912.89 g COREY CHONG [facility] 05/31/2024 10:08:30 Date Recorded Body height Body mass index (BMI) Body weight Provider Name and Address Organization Details Last Updated DateTime 07/14/2023 165.1 cm 29.1 kg/m2 08619.66 g Eli Tao [facility] 07/14/2023 09:15:25 Date Recorded Body height Body mass index (BMI) Body weight Provider Name and Address Organization Details Last Updated DateTime 03/05/2024 165.1 cm 29.1 kg/m2 70680.66 g COREY CHONG [facility] 03/05/2024 14:29:39 Date Recorded Body height Body mass index (BMI) Body weight Provider Name and Address Organization Details Last Updated DateTime 04/05/2024 166.37 cm 28.2 kg/m2 25416.89 g COREY CHONG [facility] 04/05/2024 09:08:33 Social History None recorded. Functional Status None recorded. Mental Status None recorded. Family History Nothing Reported. Medical History Condition Response Allergies/Hayfever N Coronary Artery Disease N Breathing or lung disorders N Anxiety/Depression N Emphysema N Nerve Disorders N Thyroid Problems N COPD N Pacemaker N Kidney/Bladder Problems N Anemia N Vascular Disease N Heart Trouble N Heart Attack ([place]) N Gastrointestinal Disease N Cholesterol N Diabetes N Autoimmune disease N Inflammatory Joint disease N Bleeding Disorder N Orthotics N Seizures/Epilepsy N Arthritis N Blood Clot N AIDS/HIV N Congestive Heart Failure (CHF) N Acid Reflux (GERD) N Cancer N Stroke N Asthma N Circulation Problems N Peripheral Vascular Disease N Sleep Apnea N Hepatitis N Heart Disease N Rheumatoid Arthritis N Pulmonary Embolism N Arrhythmia N Headaches N Fibromyalgia N Hypertension N Osteoporosis N Gynecological HistoryNo gynecological history recorded. Obstetrics History GPAL:G 0 P 0 0 0 0 Past Encounters Encounter ID Performer Location Encounter Start Date Encounter Closed Date Diagnosis/Indication Diagnosis SNOMED-CT Code Diagnosis ICD10 Code Diagnosis IMO Codes Diagnosis Note [id number] MD Enoch Rowley [address] [facility] [address] [place] [address] 07/14/2023 09:10:28 07/15/2023 08:37:36 Closed fracture of shaft of tibia 83792727 S82 Pain assoc iated with internal prosthetic device 895743639 T84.84XA [id number] MD Enoch Rowley [address] [place] [address] [address] [place] [address] 03/05/2024 14:16:08 03/23/2024 09:15:26 Closed fracture of upper end of tibia 90819937 S82.102D [id number] MD Enoch Rowley [address] [facility] [address] [place] [address] 04/05/2024 08:29:56 05/01/2024 08:05:34 Closed fracture of shaft of left tibia 7354463046 3586669 S82.202A [id number] MD LEANDER RowleyA - [address] [address] [facility] [address] [place] [address] 05/31/2024 09:46:42 06/19/2024 10:56:12 Closed fracture of shaft of left tibia 9221726851 5028611 S82.A [id number] Health Concerns Section Related Observation LastModified by Organization Detai ls LastModified Time None Recorded Concern Status LastModified by Organization Details LastModified Time None Recorded Advance Directives Directive None Recorded Payers Insurance Date Sequence Insurance Name Policy Number Policy Webster Covered Member ID Webster Member ID Guarantor Name 07/09/2024 1 [facility] HEALTH NET PLAN (MEDICAID HMO) NICOLASA King [id number] Flori King Notes Date Note Type Note [...] Currently not working - Previously worked in [employer], 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 Cachorro Becker MD [address] [facility] [facility] [address], [place], [address], [facility] 05/31/2024 13:28:00 OBGyn Episode No OBEpisode recorded.
== END 2025-03-06 13:39 | disposition home or self-care (01) ==
LOC: HO.HMCC 13:05
PROVIDERS: PCP Internal Medicine; Visit Provider Internal Medicine
DX: Z09 Encounter for follow-up examination after completed treatment for conditions other than malignant neoplasm (principal); J93.9 Pneumothorax, unspecified; S22.42XA Multiple fractures of ribs, left side, initial encounter for closed fracture; Z72.0 Tobacco use; J90 Pleural effusion, not elsewhere classified; R91.1 Solitary pulmonary nodule; Z91.89 Other specified personal risk factors, not elsewhere classified

== ENCOUNTER → 2025-03-06 13:04 | Outpatient (BNVA) | payer OTHER, SELFPAY | PROVIDERS: PCP Internal Medicine; Visit Provider Internal Medicine | DX: Z09 Encounter for follow-up examination after completed treatment for conditions other than malignant neoplasm (principal); J93.9 Pneumothorax, unspecified; S22.42XA Multiple fractures of ribs, left side, initial encounter for closed fracture; J90 Pleural effusion, not elsewhere classified; R91.1 Solitary pulmonary nodule; Z91.89 Other specified personal risk factors, not elsewhere classified; F17.210 Nicotine dependence, cigarettes, uncomplicated | CPT/HCPCS: 99212 ==

== ENCOUNTER 2025-03-21 16:07 | Outpatient (REF) | payer OTHER, SELFPAY ==
--- NOTE | 2025-03-21 16:08 | PFT_ITS ---
Indication: COPD Spirometry FEV1 to FVC 53%; FEV1 1.76 L; FVC 3.35 L. There is a significant response to bronchodilators noted. Lung Volumes Total lung capacity 95% predicted; residual volume 139% predicted Diffusion Capacity DLCO 65% predicted Methacholine Challenge [] Flow Volume Loops Obstructive physiology MVV 69% predicted MIP/MEP(Max inspiratory pressure/Max expiratory pressure) [] Comparisons None Interpretation There is an obstructive ventilatory defect consistent with moderate COPD. There is a significant response to bronchodilators noted. Mild decrease in the maximum voluntary ventilation secondary to likely worsening dynamic inspiratory capacity and deconditioning. Lung volumes with significant air trapping due to the COPD. The patient has a mild diffusion impairment likely secondary to the above. Clinical correlation warranted. MTDD
[2025-03-21 16:57] VITALS: PULSE 74; O2SAT 98
--- OUTSIDE RECORDS SUMMARY | 2025-03-21 22:06 | XMS_ITS | Clinical Summary ---
Author Organization [facility] Address [address] [place] [address] Care Team Providers Care Records Officer Name Role Phone Unavailable Primary Care Provider Unavailabl e Surgical History Surgery Date Site/Laterality Comments TOTAL KNEE ARTHROPLASTY PROCEDURE: [place] ARTHRP KNE CONDYLE&PLATU MEDIAL&LAT COMPARTMENTS; COMMENT: left [...] of 2) 2024 COVID-19 Vaccine ( - 2024-2 6 season) 2024 Influenza Vaccine (#1) 2024 RSV [...]
== END 2025-03-21 16:08 | disposition home or self-care (01) ==
LOC: HO.RESP 16:07
PROVIDERS: PCP Internal Medicine; Visit Provider Internal Medicine
DX: F17.210 Nicotine dependence, cigarettes, uncomplicated (principal); J44.9 Chronic obstructive pulmonary disease, unspecified
CPT/HCPCS: 94060; 94640; 94727; 94729

== ENCOUNTER → 2025-03-21 16:08 | Outpatient (BNV) | payer OTHER, SELFPAY | PROVIDERS: PCP Internal Medicine; Visit Provider Hospitalist | DX: J98.4 Other disorders of lung (principal) | CPT/HCPCS: 94060; 94727; 94729 ==